=== PATIENT | male | born 1955 | race Caucasian/White ===

== ENCOUNTER 2017-07-23 16:58 | Inpatient (IN) | payer OTHER ==
[2017-07-26] MEDS ORDERED: MELATONIN 3 MG TAB PO PRN (15:35)
[2017-07-26] MEDS ORDERED: BISACODYL 10 MG SUPP PR PRN (15:42)
[2017-07-26] MEDS ORDERED: SENNOSIDES 1 TAB PO PRN (15:42)
--- NOTE | 2017-07-26 16:04 | GHP ---
[f rep st] HISTORY AND PHYSICAL POST ADMISSION PHYSICIAN EVALUATION AND REHABILITATION TREATMENT PLAN DATE OF ADMISSION: 07/26/2017 DATE OF EVALUATION: 07/26/2017 TIME OF EVALUATION: 1530 hours. REFERRING FACILITY: [facility]. REFERRING PHYSICIAN: Dr. Chester IMPAIRMENT GROUP: 1.2. 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 ETIOLOGIC DIAGNOSIS: Right body involvement (left brain). HISTORY OF PRESENT ILLNESS: This patient came to [facility] on 07/19/2017 with acute onset of right-sided weakness and trouble speaking. In the hospital, head CT showed hemorrhage in the left basal ganglia. He had a very high blood pressure with a systolic above 200. Blood pressure was controlled initially with IV nicardipine and esmolol. Further imaging with a CT angiogram of the head and neck showed minimal atherosclerotic disease in the bilateral carotid bifurcations. There were no occlusions or stenoses of the intracranial arterial vasculature or vascular malformations or aneurysms. The etiology of the stroke was presumably hypertensive. Blood pressure control was achieved with oral medications once he had passed his swallow evaluation. He was participating in physical and occupational therapies and was appropriate for inpatient rehabilitation. OTHER STUDIES AND LABS IN THE HOSPITAL: There was a CBC done on 07/26/2017, the day of hospital discharge. He had slight anemia with a hemoglobin of 13.3 and hematocrit of 39.2, and otherwise CBC was within normal limits. A basic metabolic profile done the same day showed a slightly high BUN at 21. Creatinine was normal at 9, and otherwise renal function and electrolytes were within normal limits, but for a calcium which was slightly low at 8.4. Urinalysis was done on 07/25 and was completely within normal limits. MRI of the brain done on 07/20/2017 showed stable left thalamic and basal ganglia intraparenchymal hemorrhage with surrounding vasogenic edema. There was age-related volume loss and chronic small vessel ischemic disease, and there was an old right pontine lacunar infarct. Chest x-ray on 07/19/2017 was normal. PRECAUTIONS: He is a fall risk. He has aspiration precautions. ACTIVE COMORBIDITIES: He has the tier 3 comorbidity of hemiparesis. He otherwise has no tier 1, tier 2 or tier 3 comorbidities. PAST MEDICAL HISTORY: 1. Hypertension. 2. Dyslipidemia. PAST SURGICAL HISTORY: He has not had any surgeries. PREHOSPITAL MEDICATIONS: He was taking a statin medication. I am unclear as to whether he was taking a blood pressure medicine. Omeprazole 20 mg p.o. daily. ADMISSION MEDICATIONS: 1. Atorvastatin 20 mg p.o. q.h.s. 2. Labetalol 100 mg p.o. b.i.d. 3. Lisinopril 40 mg p.o. daily. 4. Lorazepam 0.5 mg p.o. q.8 hours p.r.n. 5. Melatonin 3 mg p.o. q.h.s. p.r.n. 6. Omeprazole 20 mg p.o. daily. ALLERGIES: There are no known drug allergies. FAMILY HISTORY: Noncontributory. SOCIAL HISTORY: He is . He lives with his . They live in a 3-level home. He reports it is possible he will be able to live on 1 level. 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 His daughter and son-in-law also live in the home. He has a remote history of smoking, but he quit in 1975. REVIEW OF SYSTEMS: He reports that he snores. He has been sleeping in a recliner and finds that he has been much more comfortable since he was moved out of the ICU in a recliner than in bed. He has almost complete loss of sensation in the right arm and leg, and he is unable to move his right arm or leg. He reports that when he is stimulated on the right arm or leg, he feels it in the right shoulder as well as wherever he is being touched. He has a good appetite. There is no nausea, vomiting, constipation or diarrhea. There is no dysuria or urinary frequency. There is no skin rash or skin breakdown. There is no joint pain or joint swelling. He is in good spirits. There is no cough or dyspnea. He is not aware of difficulty swallowing. There are no fevers or chills. Other than that, a 10-point review of systems is negative. PHYSICAL EXAM: VITAL SIGNS: Blood pressure is 140/88, heart rate is 71, respiratory rate is 16, oxygen saturation is 94% on room air, temperature is 36.7 degrees centigrade. His weight is 93 kg for a body mass index of 33.1. GENERAL: This is a well-nourished, well-developed, obese man, appears his chronologic age, cooperative and in no acute distress. HEENT: Extraocular movements are intact. Pupils are equal, round and reactive to light. Mucous membranes are moist. Dentition is in good condition. He has a crowded airway, Mallampati class 4. NECK: Supple. HEART: There is a regular rate and rhythm with no murmurs, rubs or gallops. LUNGS: Clear to auscultation bilaterally. ABDOMEN: Soft, nontender, nondistended, with normoactive bowel sounds and no hepatosplenomegaly. EXTREMITIES: There is no cyanosis or clubbing. There is 1+ edema to the right lower leg pretibial and the right foot. Radial and dorsalis pedis pulses are 2+ bilaterally. There is no calf tenderness. NEUROLOGIC: He is alert and oriented x3. Cranial nerves 2 through 12 are grossly intact. He has a very slight right facial droop at the corner of the mouth. Motor strength is absent at the right biceps, triceps, wrist extensors and flexors, and finger extensors and flexors, as well as the right hip flexor, quadriceps, hamstrings, ankle extension, ankle flexion and great toe extension or flexion. He has some movement at the right scapula. Sensation is intact to light touch on the right , and he has very little sensation, though with firm touch he can feel on the left upper and lower extremities. With contact with the right lower extremity, he reports he gets tingling. Deep tendon reflexes are 2+ bilaterally at the biceps, patellar and Achilles tendons. Plantar reflex is indeterminate on the left and on the right, his toe is chronically in extension. There do not appear to be any visual field losses. Movements are smooth of and controlled with the left upper and lower extremities. He requires assistance to arise to seated from supine. CURRENT LEVEL OF FUNCTION: Per the pre-admission screen regarding diet, feeding and swallowing, he was on a regular diet with thick liquids, but that has subsequently been upgraded. There were aspiration precautions, and he had modified independence for diet, feeding and swallowing. For grooming, he had modified independence, seated. For bathing, he needed assistance. For dressing the upper body, he needed minimal assist with verbal and tactile cues. Bed mobility required minimal assistance to 2-person assistance. Transfers required minimal assistance to 2-person assistance. Nurses were using a Herminia lift. The therapists were using a Stedy-Lift with standing for grooming in the bathroom. Balance was poor. Endurance was poor. He could stand for 1-3 minutes with 2- person assist. Regarding communication, he was noted to have slurred speech. Regarding cognition, he was noted to have mild cognitive deficits, but he could follow 1-step commands. IMPRESSION: The patient is a 61-year-old man who suffered a hemorrhagic cerebrovascular accident affecting the left basal ganglia, thalamus and juárez radiata. He has right-sided hemiparesis. MR imaging also showed an old right pontine lacunar infarct. Hypertension was the etiology of the stroke. Blood pressure control was achieved in the hospital initially with IV medications and , once he was cleared for safe swallow, with oral medications. Lisinopril was titrated during his stay from 10 mg a day to 40 mg a day. He was participating in therapies and is appropriate for inpatient rehabilitation. He will benefit from physical and occupational therapy to optimize his mobility and activities of daily living, from speech and language pathology regarding swallow and cognition, from the nursing service regarding fall risk, skin integrity, bowel and bladder, medication administration, and medication education; and from the care of a physician regarding blood pressure control, deep venous thrombosis risk, and risk for neurologic deterioration. His goal is to complete therapy and then return home with his family. For a safe discharge, he will need to achieve modified independence with mobility, activities of daily living, swallowing, speech and cognition. He will need to have his blood pressure effectively managed. Will need to have medication education. There will need to be stroke education for the patient and his family and family training, and he and his family will need to be able to achieve medication management. He will have therapy with physical therapy, occupational therapy and speech and language pathology on a modified schedule for 45-60 minutes per day for each discipline on 5-7 days of the week. His expected duration of stay is 14-17 days. It is anticipated that upon return to home, he will continue to benefit from home health services including speech and language pathology and physical therapy. Additionally, he will be referred to a stroke support group. ASSESSMENT AND PLAN: 1. Debility. Status post hemorrhagic cerebral cerebrovascular accident on 07/19 with left-sided hemiparesis and reduced sensation. PT and OT to optimize his mobility and activities of daily living. 2. Dysphagia and cognitive impairment. These both appear to have improved during his hospitalization. He will have assessment and treatment per Speech and Language Pathology. 3. Hypertension. He was mildly hypertensive on presentation to inpatient rehabilitation today. Continue labetalol 100 mg b.i.d. and lisinopril 40 mg daily, and monitor blood pressure. As there is not a separate indication for a beta rhonda, will consider transitioning off labetalol and initiating more first-line drugs, such as a calcium channel rhonda and/or a diuretic. 4. Risk for deep venous thrombosis was discussed with neurosurgeon, Dr. Haynes , who agrees with prophylactic enoxaparin. 5. Possible sleep apnea with history of snoring and crowded airway on exam. He will be assessed for need for oxygen overnight, and he should have a sleep study done after he discharges, to evaluate whether he has sleep apnea and would benefit from interventions. 6. History of gastroesophageal reflux disorder. Continue proton pump inhibitor. Per hospital formulary, I will prescribe pantoprazole. 7. Obesity. Will consult dietitian for diet recommendations. 8. Prior cerebrovascular accident seen on magnetic resonance imaging in the right ezio. He will have physical and occupational therapy, and it is hoped that the prior infarction will not impact his rehabilitation. 9. Secondary stroke prophylaxis will be continued with atorvastatin as well as blood pressure control. 10. Dysphagia. There are specific recommendations in the discharge documentation. Texture is regular, but no mixed consistencies. Liquid texture is thin. He should have small bites and sips. He should be positioned upright at 90 degrees 15-20 minutes after meals. No straws. Pills in puree. One-to-one supervision and cuing. 11. Right lower extremity edema, presumably from dependent positioning and inactivity. His calf was not tender, and he has no other signs consistent with a deep venous thrombosis. Will observe and will not do any further studies at present. Will begin enoxaparin today. FOLLOWUP: He is to follow up with primary care provider, Dr. Gema Greene, after discharge. /[id number]/MODL and [id number] 07/26/17 16:14 KYLER
[2017-07-26] MEDS ORDERED: ENOXAPARIN 40 MG/0.4 ML SYR SC SCH (16:30)
[2017-07-26] MEDS: ENOXAPARIN 40 MG/0.4 ML SYR SC SCH (18:42)
[2017-07-26] MEDS: LABETALOL HCL 100 MG TAB PO SCH (21:31)
[2017-07-26] MEDS: ATORVASTATIN CALCIUM 20 MG TAB PO SCH (21:31)
[2017-07-26] MEDS: LORazepam 0.5 MG TAB PO PRN (21:56)
[2017-07-27] MEDS: PANTOPRAZOLE SODIUM 40 MG TAB PO SCH (08:07)
[2017-07-27] MEDS: LABETALOL HCL 100 MG TAB PO SCH ×2 (08:07→20:04)
[2017-07-27] MEDS: ENOXAPARIN 40 MG/0.4 ML SYR SC SCH (08:08)
[2017-07-27] MEDS: LISINOPRIL 40 MG TAB PO SCH (08:08)
[2017-07-27] MEDS ORDERED: ENOXAPARIN 40 MG/0.4 ML SYR SC SCH (09:00)
[2017-07-27] MEDS ORDERED: NON-FORMULARY NEW DRUG (Omeprazole [Prilosec 20 Mg] 20 MG) PO SCH (09:00)
--- NOTE | 2017-07-27 12:43 | SOAPPROG ---
SOAP Progress Note Assessment/Plan: Assessment: 1. Debility. Status post hemorrhagic cerebral cerebrovascular accident on 07/19 with left-sided hemiparesis and reduced sensation. PT and OT to optimize his mobility and activities of daily living. 2. Dysphagia and cognitive impairment. These both appear to have improved during his hospitalization. He will have assessment and treatment per Speech and Language Pathology. 3. Hypertension. He was mildly hypertensive on presentation to inpatient rehabilitation today. Continue labetalol 100 mg b.i.d. and lisinopril 40 mg daily, and monitor blood pressure. As there is not a separate indication for a beta rhonda, will consider transitioning off labetalol and initiating more first-line drugs, such as a calcium channel rhonda and/or a diuretic. 4. Risk for deep venous thrombosis was discussed with neurosurgeon, Dr. Haynes , who agrees with prophylactic enoxaparin. 5. Possible sleep apnea with history of snoring and crowded airway on exam. He will be assessed for need for oxygen overnight, and he should have a sleep study done after he discharges, to evaluate whether he has sleep apnea and would benefit from interventions. 6. History of gastroesophageal reflux disorder. Continue proton pump inhibitor. Per hospital formulary, I will prescribe pantoprazole. 7. Obesity. Will consult dietitian for diet recommendations. 8. Prior cerebrovascular accident seen on magnetic resonance imaging in the right ezio. He will have physical and occupational therapy, and it is hoped that the prior infarction will not impact his rehabilitation. 9. Secondary stroke prophylaxis will be continued with atorvastatin as well as blood pressure control. 10. Dysphagia. There are specific recommendations in the discharge documentation. Texture is regular, but no mixed consistencies. Liquid texture is thin. He should have small bites and sips. He should be positioned upright at 90 degrees 15-20 minutes after meals. No straws. Pills in puree. One-to-one supervision and cuing. 11. Right lower extremity edema, presumably from dependent positioning and inactivity. His calf was not tender, and he has no other signs consistent with a deep venous thrombosis. Will observe and will not do any further studies at present. Will begin enoxaparin today. FOLLOWUP: He is to follow up with primary care provider, Dr. Gema Greene, after discharge. 07/27/17 12:43 Objective: Vital Signs Temp Pulse Resp BP Pulse Ox 36.4 C 70 17 148/93 H 94 07/27/17 07:34 07/27/17 08:07 07/27/17 07:34 07/27/17 08:08 07/27/17 07:34 07/26/17 07/27/17 07/28/17 05:59 05:59 05:59 Intake Total 560 568 Output Total 600 8624 [id number] -[id number]
--- NOTE | 2017-07-27 12:44 | PDOREHIP ---
Admission IRF-PSYCHIATRIC - Admission - 3 Day Assessment Period Admission Date/Day 1: 07/26/17 Day 2: 07/27/17 Day 3: 07/28/17 - Active Diagnoses Comorbidities and Co-existing Conditions at Admission: 51585. None of the Above - Skin Conditions Unhealed Pressure Ulcer (1 or more/Stage 1 or >)-Admission: 0. No
--- NOTE | 2017-07-27 14:13 | SOAPPROG ---
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 PT and OT to optimize his mobility and activities of daily living. * Dysphagia and cognitive impairment. Improved during his hospitalization. He will have assessment and treatment per Speech and Language Pathology. * Hypertension. He was mildly hypertensive on presentation to inpatient rehabilitation today. Continue lisinopril 40 mg daily, and monitor blood pressure. As there is not a separate indication for a beta rhonda, will transition off labetalol and initiate hydrochlorothiazide starting 07/28/2016. Recheck BMP 07/30/17. * Secondary stroke prophylaxis will be continued with atorvastatin as well as blood pressure control. * Right eye irritation. He may not keep the eyelid closed on night. Will initiate ophthalmic ointment at bedtime and moisturizing eyedrops p.r.n.. * History of gastroesophageal reflux disorder. Continue proton pump inhibitor. Per hospital formulary, I will prescribe pantoprazole. * Obesity. Will consult dietitian for diet recommendations. * Constipation. He reports he will try prune juice as suggested by nursing. Will also prescribe polyethylene glycol q.day on a p.r.n. basis. * Prior cerebrovascular accident seen on magnetic resonance imaging in the right ezio. He will have physical and occupational therapy, and it is hoped that the prior infarction will not impact his rehabilitation. * Possible sleep apnea with history of snoring and crowded airway on exam. He will be assessed for need for oxygen overnight, and he should have a sleep study done after he discharges, to evaluate whether he has sleep apnea and would benefit from interventions. * Risk for deep venous thrombosis was discussed with neurosurgeon, Dr. Haynes, who agrees with prophylactic enoxaparin, started 07/26/17. Right lower extremity edema is resolved 07/27/2017 FOLLOWUP: He is to follow up with primary care provider, Dr. Gema Greene, after discharge. 07/27/17 14:32 Subjective: No complaints. Slept well; took some lorazepam last night. Slept in the recliner. He reports physical therapy told him that eventually he will need to be sleeping in the bed. He was not taking antihypertensive medicine prior to this event. Not in pain, no fevers, chills, cough, dyspnea. Reports constipation and would like a stool softener. Says his right eye is a little bit red and feels somewhat irritated. Objective: Vital Signs Temp Pulse Resp BP Pulse Ox 36.4 C 70 17 148/93 H 94 07/27/17 07:34 07/27/17 08:07 07/27/17 07:34 07/27/17 08:08 07/27/17 07:34 07/26/17 07/27/17 07/28/17 05:59 05:59 05:59 Intake Total 560 568 Output Total 600 1080 Balance -40 -512 Physical Exam - Physical Exam General Appearance: WD/WN, alert, no apparent distress, obese Respiratory: normal breath sounds, No crackles, No rhonchi, No wheezing Cardiac/Chest: regular rate, rhythm, No edema Skin: normal color, warm/dry Neuro/Psych: alert, normal mood/affect, oriented x 3, motor weakness (Right upper and lower extremities. Slight right facial droop at the corner of the mouth. Can close both eyes completely but questionable lid lag on the right.) ICD10 Worksheet Patient Problems: Problems Problem Status Onset HTN (hypertension) Acute Hemorrhagic cerebrovascular accident (CVA) Acute Right hemiparesis Acute - ICD10 Problem Qualifiers (1) Hemorrhagic cerebrovascular accident (CVA) (2) Right hemiparesis (3) HTN (hypertension)
[2017-07-27] MEDS ORDERED: POLYETHYLENE GLYCOL 3350 17 GM PKT PO PRN (14:28)
[2017-07-27] MEDS ORDERED: CARBOXYMETHYLCELLULOSE 0.5% 0.4 ML DROPERETTE RTEYE PRN (14:33)
[2017-07-27] MEDS: PETROLAT,WHT/MIN OIL/SOD CHL 3.5 GM OPHT.OINT EACHEYE SCH (20:04)
[2017-07-27] MEDS: ATORVASTATIN CALCIUM 20 MG TAB PO SCH (20:04)
[2017-07-28] MEDS: HYDROCHLOROTHIAZIDE 25 MG TAB PO SCH (08:06)
[2017-07-28] MEDS: ENOXAPARIN 40 MG/0.4 ML SYR SC SCH (08:06)
[2017-07-28] MEDS: LISINOPRIL 40 MG TAB PO SCH (08:07)
[2017-07-28] MEDS: PANTOPRAZOLE SODIUM 40 MG TAB PO SCH (08:07)
--- NOTE | 2017-07-28 14:18 | SOAPPROG ---
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 Initial functional independence measure 60 on 07/28/2017. Moderate to maximal assistance for bed mobility, moderate assistance for transfers. Standing at the rail. Ambulated 5 feet. He has emerging movement at the right hip and quadriceps when standing. Required maximal assistance for shower transfer and moderate assistance for bathing. Minimal assist for upper body dressing and moderate to maximal assistance for lower body dressing PT and OT to optimize his mobility and activities of daily living. * Dysphagia. Right facial and oral weakness. Week labral seal and can leak food. He has been advanced to thin liquids but should continue with small sips. Continue speech and language pathology. * Cognitive impairment. Higher level cognitive activities with Speech and Language Pathology. * Hypertension. Transitioned from labetalol 100 mg twice daily to hydrochlorothiazide 12.5 mg q.day starting 07/28/2017. Continue lisinopril 40 mg p. o. q.day. Monitor blood pressure. Recheck BMP 07/30/17. * Secondary stroke prophylaxis will be continued with atorvastatin as well as blood pressure control. * Right eye irritation. He may not keep the eyelid closed on night. Initiated ophthalmic ointment at bedtime and moisturizing eyedrops p.r.n. on 07/27/2017. * History of gastroesophageal reflux disorder. Continue pantoprazole. * Obesity. Will consult dietitian for diet recommendations. * Constipation. He reports he will try prune juice as suggested by nursing. Will also prescribe polyethylene glycol q.day on a p.r.n. basis. * Prior cerebrovascular accident seen on magnetic resonance imaging in the right ezio. He will have physical and occupational therapy, and it is hoped that the prior infarction will not impact his rehabilitation. * Possible sleep apnea with history of snoring and crowded airway on exam. He will be assessed for need for oxygen overnight, and he should have a sleep study done after he discharges, to evaluate whether he has sleep apnea and would benefit from interventions. * Risk for deep venous thrombosis was discussed with neurosurgeon, Dr. Haynes, who agrees with prophylactic enoxaparin, started 07/26/17. Right lower extremity edema is resolved 07/27/2017 Attended staffing, 15 minutes. Discussed with case management, dietitian, nursing, PT, OT, [employer]. Tentative discharge date set for 08/18/2017. FOLLOWUP: He is to follow up with primary care provider, Dr. Gema Greene, after discharge. 07/28/17 14:13 Subjective: No complaints. Has some fatigue after therapies through the day. Has not noticed any adverse effects of change of blood pressure meds. Sleeping okay. Reports he will be willing to switch from sleeping in the recliner to bed in another day or 2. Objective: Vital Signs Temp Pulse Resp BP Pulse Ox 36.3 C 68 16 122/88 H 96 07/28/17 06:54 07/28/17 06:54 07/28/17 06:54 07/28/17 08:07 07/28/17 06:54 07/27/17 07/28/17 07/29/17 05:59 05:59 05:59 Intake Total 560 1208 386 Output Total 600 1680 Balance -40 -472 386 - Time Spent With Patient Time Spent With Patient: Greater than 35 minutes floor time today, including more than 50% of time in coordination of care during staffing meeting, and counseling patient. Physical Exam - Physical Exam General Appearance: WD/WN, alert, no apparent distress Respiratory: normal breath sounds, No crackles, No rhonchi, No wheezing Cardiac/Chest: regular rate, rhythm, edema (Trace pretibial edema right lower extremity) Skin: normal color, warm/dry Neuro/Psych: alert, normal mood/affect, oriented x 3, motor weakness (Right upper and lower extremities) ICD10 Worksheet Patient Problems: Problems Problem Status Onset HTN (hypertension) Acute Hemorrhagic cerebrovascular accident (CVA) Acute Right hemiparesis Acute - ICD10 Problem Qualifiers (1) Hemorrhagic cerebrovascular accident (CVA) (2) Right hemiparesis (3) HTN (hypertension)
[2017-07-28] MEDS: ATORVASTATIN CALCIUM 20 MG TAB PO SCH (20:15)
[2017-07-28] MEDS: PETROLAT,WHT/MIN OIL/SOD CHL 3.5 GM OPHT.OINT EACHEYE SCH (21:56)
[2017-07-29] MEDS: PETROLAT,WHT/MIN OIL/SOD CHL 3.5 GM OPHT.OINT EACHEYE SCH (00:30)
[2017-07-29] MEDS: LORazepam 0.5 MG TAB PO PRN (01:03)
[2017-07-29] MEDS: HYDROCHLOROTHIAZIDE 25 MG TAB PO SCH (08:08)
[2017-07-29] MEDS: LISINOPRIL 40 MG TAB PO SCH (08:08)
[2017-07-29] MEDS: PANTOPRAZOLE SODIUM 40 MG TAB PO SCH (08:09)
[2017-07-29] MEDS: ENOXAPARIN 40 MG/0.4 ML SYR SC SCH (09:27)
[2017-07-29] MEDS ORDERED: traZODone 50 MG TAB PO SCH (13:30)
--- NOTE | 2017-07-29 13:35 | SOAPPROG ---
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 Initial functional independence measure 60 on 07/28/2017. Moderate to maximal assistance for bed mobility, moderate assistance for transfers. Pre gait activities standing at the rail. Ambulated 5 feet. He has emerging movement at the right hip and quadriceps when standing. Required maximal assistance for shower transfer and moderate assistance for bathing. Minimal assist for upper body dressing and moderate to maximal assistance for lower body dressing PT and OT to optimize his mobility and activities of daily living. * Dysphagia. Right facial and oral weakness. Week labial seal and can leak food. He has been advanced to thin liquids but should continue with small sips. Continue speech and language pathology. * Cognitive impairment. Higher level cognitive activities with Speech and Language Pathology. * Hypertension. Transitioned from labetalol 100 mg twice daily to hydrochlorothiazide 12.5 mg q.day starting 07/28/2017. Continue lisinopril 40 mg p. o. q.day. Monitor blood pressure. Recheck BMP 07/30/17. * Secondary stroke prophylaxis will be continued with atorvastatin as well as blood pressure control. * Insomnia. Discontinue lorazepam as it may be contributing to daytime fatigue. Trial of trazodone 50 mg at HS starting 07/29/2017. * Right eye irritation. He may not keep the eyelid closed on night. Initiated ophthalmic ointment at bedtime and moisturizing eyedrops p.r.n. on 07/27/2017. * History of gastroesophageal reflux disorder. Continue pantoprazole. * Obesity. Will consult dietitian for diet recommendations. * Constipation. He reports he will try prune juice as suggested by nursing. Will also prescribe polyethylene glycol q.day on a p.r.n. basis. * Prior cerebrovascular accident seen on magnetic resonance imaging in the right ezio. He will have physical and occupational therapy, and it is hoped that the prior infarction will not impact his rehabilitation. * Possible sleep apnea with history of snoring and crowded airway on exam. He will be assessed for need for oxygen overnight, and he should have a sleep study done after he discharges, to evaluate whether he has sleep apnea and would benefit from interventions. * Risk for deep venous thrombosis was discussed with neurosurgeon, Dr. Haynes, who agrees with prophylactic enoxaparin, started 07/26/17. Right lower extremity edema is resolved 07/27/2017 Tentative discharge date set for 08/18/2017. FOLLOWUP: He is to follow up with primary care provider, Dr. Gema Greene, after discharge. 07/29/17 13:35 Subjective: Complains of fatigue after therapies. Reports study sleepy as well as having muscle fatigue. Took lorazepam last night for sleep but did not sleep very well ; think she will try sleeping in the bed tonight instead of the recliner. No cough, dyspnea, fevers, chills. Objective: Vital Signs Temp Pulse Resp BP Pulse Ox 36.8 C 70 16 137/90 H 94 07/29/17 07:25 07/29/17 07:25 07/29/17 07:25 07/29/17 08:08 07/29/17 07:25 07/28/17 07/29/17 07/30/17 05:59 05:59 05:59 Intake Total 1208 1126 300 Output Total 1680 500 Balance -472 626 300 Physical Exam - Physical Exam General Appearance: WD/WN, alert, no apparent distress Respiratory: normal breath sounds, No crackles, No rhonchi, No wheezing Cardiac/Chest: regular rate, rhythm, diastolic murmur, systolic murmur Skin: normal color, warm/dry Neuro/Psych: alert, normal mood/affect, oriented x 3, motor weakness (Right upper and lower extremities) ICD10 Worksheet Patient Problems: Problems Problem Status Onset HTN (hypertension) Acute Hemorrhagic cerebrovascular accident (CVA) Acute Right hemiparesis Acute - ICD10 Problem Qualifiers (1) Hemorrhagic cerebrovascular accident (CVA) (2) Right hemiparesis (3) HTN (hypertension)
[2017-07-29] MEDS: traZODone 50 MG TAB PO SCH (20:09)
[2017-07-29] MEDS: ATORVASTATIN CALCIUM 20 MG TAB PO SCH (20:09)
[2017-07-30 08:07] LABS: ANION GAP 11 mEq/L (8-16); CALCIUM 9.1 mg/dL (8.5-10.4); CARBON DIOXIDE 21 mEq/l (22-31); CHLORIDE 104 mEq/L (97-110); GLOMERULAR FILTRATION RATE > 60; GLUCOSE 102 mg/dL (70-100); POTASSIUM 5.6 mEq/L (3.5-5.2); SODIUM 136 mEq/L (134-144)
[2017-07-30 08:11] LABS: SPECIMEN HEMOLYSIS 202
[2017-07-30] MEDS: LISINOPRIL 40 MG TAB PO SCH (08:55)
[2017-07-30] MEDS: HYDROCHLOROTHIAZIDE 25 MG TAB PO SCH (08:56)
[2017-07-30] MEDS: PANTOPRAZOLE SODIUM 40 MG TAB PO SCH (08:56)
[2017-07-30] MEDS: ENOXAPARIN 40 MG/0.4 ML SYR SC SCH (08:56)
--- NOTE | 2017-07-30 12:08 | SOAPPROG ---
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 Initial functional independence measure 60 on 07/28/2017. Moderate to maximal assistance for bed mobility, moderate assistance for transfers. Pre gait activities standing at the rail. Ambulated 5 feet. He has emerging movement at the right hip and quadriceps when standing. Required maximal assistance for shower transfer and moderate assistance for bathing. Minimal assist for upper body dressing and moderate to maximal assistance for lower body dressing PT and OT to optimize his mobility and activities of daily living. * Dysphagia. Right facial and oral weakness. Week labial seal and can leak food. He has been advanced to thin liquids but should continue with small sips. Continue speech and language pathology. * Cognitive impairment. Higher level cognitive activities with Speech and Language Pathology. * Hypertension. Adequate control. Transitioned from labetalol 100 mg twice daily to hydrochlorothiazide 12.5 mg q.day starting 07/28/2017. Continue lisinopril 40 mg p. o. q.day. Monitor blood pressure. BMP 07/30/17 with normal renal function; hyperkalemia due to hemolysis.. * Secondary stroke prophylaxis will be continued with atorvastatin as well as blood pressure control. * Insomnia. Discontinue lorazepam as it may be contributing to daytime fatigue. Improved with trazodone 50 mg at HS starting 07/29/2017. * Right eye irritation. He may not keep the eyelid closed on night. Initiated ophthalmic ointment at bedtime and moisturizing eyedrops p.r.n. on 07/27/2017. * History of gastroesophageal reflux disorder. Continue pantoprazole. * Obesity. Will consult dietitian for diet recommendations. * Constipation. He reports he will try prune juice as suggested by nursing. Will also prescribe polyethylene glycol q.day on a p.r.n. basis. * Prior cerebrovascular accident seen on magnetic resonance imaging in the right ezio. He will have physical and occupational therapy, and it is hoped that the prior infarction will not impact his rehabilitation. * Possible sleep apnea with history of snoring and crowded airway on exam. He will be assessed for need for oxygen overnight, and he should have a sleep study done after he discharges, to evaluate whether he has sleep apnea and would benefit from interventions. * Risk for deep venous thrombosis was discussed with neurosurgeon, Dr. Haynes, who agrees with prophylactic enoxaparin, started 07/26/17. Right lower extremity edema is resolved 07/27/2017 Tentative discharge date set for 08/18/2017. FOLLOWUP: He is to follow up with primary care provider, Dr. Gema Greene, after discharge. 07/30/17 12:03 Subjective: No complaints. Slept well with trazodone. Slept in bed last night rather than recliner. Not in pain, no fevers, chills, cough, dyspnea. Objective: Vital Signs Temp Pulse Resp BP Pulse Ox 36.5 C 77 16 127/69 H 94 07/30/17 07:28 07/30/17 07:28 07/30/17 07:28 07/30/17 08:56 07/30/17 07:28 Laboratory Results 07/30/17 07:20 07/29/17 07/30/17 07/31/17 05:59 05:59 05:59 Intake Total 1126 1180 236 Output Total 500 200 Balance 626 980 236 Physical Exam - Physical Exam General Appearance: WD/WN, alert, no apparent distress Respiratory: normal breath sounds, No crackles, No rhonchi, No wheezing Cardiac/Chest: regular rate, rhythm, No diastolic murmur, No systolic murmur Skin: normal color, warm/dry Neuro/Psych: alert, normal mood/affect, oriented x 3, motor weakness (RUE but occupational therapists notes some return of shoulder flexion, and RLE) ICD10 Worksheet Patient Problems: Problems Problem Status Onset HTN (hypertension) Acute Hemorrhagic cerebrovascular accident (CVA) Acute Right hemiparesis Acute - ICD10 Problem Qualifiers (1) Hemorrhagic cerebrovascular accident (CVA) (2) Right hemiparesis (3) HTN (hypertension)
[2017-07-30] MEDS: ATORVASTATIN CALCIUM 20 MG TAB PO SCH (20:03)
[2017-07-30] MEDS: traZODone 50 MG TAB PO SCH (20:03)
[2017-07-31] MEDS: PETROLAT,WHT/MIN OIL/SOD CHL 3.5 GM OPHT.OINT EACHEYE SCH ×2 (04:44→19:54)
[2017-07-31] MEDS: LISINOPRIL 40 MG TAB PO SCH (08:19)
[2017-07-31] MEDS: PANTOPRAZOLE SODIUM 40 MG TAB PO SCH (08:19)
[2017-07-31] MEDS: HYDROCHLOROTHIAZIDE 25 MG TAB PO SCH (08:19)
[2017-07-31] MEDS: ENOXAPARIN 40 MG/0.4 ML SYR SC SCH (08:20)
--- NOTE | 2017-07-31 08:51 | SOAPPROG ---
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 Initial functional independence measure 60 on 07/28/2017. Moderate to maximal assistance for bed mobility, moderate assistance for transfers. Pre gait activities standing at the rail. Ambulated 5 feet. He has emerging movement at the right hip and quadriceps when standing. Required maximal assistance for shower transfer and moderate assistance for bathing. Minimal assist for upper body dressing and moderate to maximal assistance for lower body dressing PT and OT to optimize his mobility and activities of daily living. * Dysphagia. Right facial and oral weakness. Week labial seal and can leak food. He has been advanced to thin liquids but should continue with small sips. Continue speech and language pathology. * Cognitive impairment. Higher level cognitive activities with Speech and Language Pathology. * Hypertension. Adequate control. Transitioned from labetalol 100 mg twice daily to hydrochlorothiazide 12.5 mg q.day starting 07/28/2017. Continue lisinopril 40 mg p. o. q.day. Monitor blood pressure. BMP 07/30/17 with normal renal function; hyperkalemia due to hemolysis.. * Secondary stroke prophylaxis will be continued with atorvastatin as well as blood pressure control. * Insomnia. Discontinue lorazepam as it may be contributing to daytime fatigue. Improved with trazodone 50 mg at HS starting 07/29/2017. * Right eye irritation. He may not keep the eyelid closed on night. Initiated ophthalmic ointment at bedtime and moisturizing eyedrops p.r.n. on 07/27/2017. * History of gastroesophageal reflux disorder. Continue pantoprazole. * Obesity. Will consult dietitian for diet recommendations. * Constipation. He reports he will try prune juice as suggested by nursing. Will also prescribe polyethylene glycol q.day on a p.r.n. basis. * Prior cerebrovascular accident seen on magnetic resonance imaging in the right ezio. He will have physical and occupational therapy, and it is hoped that the prior infarction will not impact his rehabilitation. * Possible sleep apnea with history of snoring and crowded airway on exam. He will be assessed for need for oxygen overnight, and he should have a sleep study done after he discharges, to evaluate whether he has sleep apnea and would benefit from interventions. * Risk for deep venous thrombosis was discussed with neurosurgeon, Dr. Haynes, who agrees with prophylactic enoxaparin, started 07/26/17. Right lower extremity edema is resolved 07/27/2017 * Right shoulder pain - likely 2/2 hemiparesis - Pt not describing neuropathic qualities. Will add topicals although will continue to assess for neuropathic pain Tentative discharge date set for 08/18/2017. FOLLOWUP: He is to follow up with primary care provider, Dr. Gema Greene, after discharge. Plan: 07/31/17 08:48 Subjective: Doing well today. Slept pretty well last night although did struggle getting to sleep 2/2 right shoulder pain/discomfort. Describes it more as musculoskeletal. no cp, sob. Tolerating PO well. Objective: Vital Signs Temp Pulse Resp BP Pulse Ox 36.7 C 77 18 119/68 91 L 07/31/17 08:00 07/31/17 08:00 07/31/17 08:00 07/31/17 08:19 07/31/17 08:00 Laboratory Results 07/30/17 07:20 07/30/17 07/31/17 08/01/17 05:59 05:59 05:59 Intake Total 1180 672 Output Total 200 Balance 980 672 Physical Exam - Physical Exam General Appearance: alert, no apparent distress, other (Brushing teeth - working on ADL's with OT) Respiratory: lungs clear, normal breath sounds Cardiac/Chest: regular rate, rhythm Abdomen: normal bowel sounds Extremities: non-tender Neuro/Psych: alert, normal mood/affect, motor weakness (Right sided weakenss) ICD10 Worksheet Patient Problems: Problems Problem Status Onset HTN (hypertension) Acute Hemorrhagic cerebrovascular accident (CVA) Acute Right hemiparesis Acute Shoulder pain, right Acute - ICD10 Problem Qualifiers (1) Shoulder pain, right Qualifiers: Chronicity: acute Qualified Code(s): M25.511 - Pain in right shoulder
[2017-07-31] MEDS: TROLAMINE SALICYLATE 85 GM CRTUBE TP PRN ×2 (18:13→19:54)
[2017-07-31] MEDS: ATORVASTATIN CALCIUM 20 MG TAB PO SCH (19:54)
[2017-08-01] MEDS: traZODone 50 MG TAB PO SCH ×2 (00:17→19:55)
--- NOTE | 2017-08-01 08:09 | SOAPPROG ---
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 Initial functional independence measure 60 on 07/28/2017. Moderate to maximal assistance for bed mobility, moderate assistance for transfers. Pre gait activities standing at the rail. Ambulated 5 feet. He has emerging movement at the right hip and quadriceps when standing. Required maximal assistance for shower transfer and moderate assistance for bathing. Minimal assist for upper body dressing and moderate to maximal assistance for lower body dressing PT and OT to optimize his mobility and activities of daily living. * Dysphagia. Right facial and oral weakness. Week labial seal and can leak food. He has been advanced to thin liquids but should continue with small sips. Continue speech and language pathology. * Cognitive impairment. Higher level cognitive activities with Speech and Language Pathology. * Hypertension. Adequate control. Transitioned from labetalol 100 mg twice daily to hydrochlorothiazide 12.5 mg q.day starting 07/28/2017. Continue lisinopril 40 mg p. o. q.day. Monitor blood pressure. BMP 07/30/17 with normal renal function; hyperkalemia due to hemolysis.. * Secondary stroke prophylaxis will be continued with atorvastatin as well as blood pressure control. * Insomnia. Discontinue lorazepam as it may be contributing to daytime fatigue. Improved with trazodone 50 mg at HS starting 07/29/2017. * Right eye irritation. He may not keep the eyelid closed on night. Initiated ophthalmic ointment at bedtime and moisturizing eyedrops p.r.n. on 07/27/2017. * History of gastroesophageal reflux disorder. Continue pantoprazole. * Obesity. Will consult dietitian for diet recommendations. * Constipation. He reports he will try prune juice as suggested by nursing. Will also prescribe polyethylene glycol q.day on a p.r.n. basis. * Prior cerebrovascular accident seen on magnetic resonance imaging in the right ezio. He will have physical and occupational therapy, and it is hoped that the prior infarction will not impact his rehabilitation. * Possible sleep apnea with history of snoring and crowded airway on exam. He will be assessed for need for oxygen overnight, and he should have a sleep study done after he discharges, to evaluate whether he has sleep apnea and would benefit from interventions. * Risk for deep venous thrombosis was discussed with neurosurgeon, Dr. Haynes, who agrees with prophylactic enoxaparin, started 07/26/17. Right lower extremity edema is resolved 07/27/2017 * Right shoulder pain - likely 2/2 hemiparesis - Improved with aspercreme. Have asked OT to tape and RN to place Jameel-arm protocol reminder over bed Tentative discharge date set for 08/18/2017. FOLLOWUP: He is to follow up with primary care provider, Dr. Gema Greene, after discharge. Plan: 07/31/17 08:48 08/01/17 08:05 Subjective: Did better yesterday/last night with the cream. Slept more through the night and minimal discomfort. no new concerns this am. No cp/sob, Had a BM. Objective: Vital Signs Temp Pulse Resp BP Pulse Ox 36.9 C 67 16 114/73 93 08/01/17 05:58 08/01/17 05:58 08/01/17 05:58 08/01/17 05:58 08/01/17 05:58 Laboratory Results 07/30/17 07:20 07/31/17 08/01/17 08/02/17 05:59 05:59 05:59 Intake Total 672 980 Balance 672 980 Physical Exam - Physical Exam General Appearance: alert, no apparent distress EENT: PERRL/EOMI Respiratory: lungs clear, normal breath sounds Cardiac/Chest: regular rate, rhythm Abdomen: normal bowel sounds, non-tender, soft Extremities: non-tender Neuro/Psych: normal mood/affect ICD10 Worksheet Patient Problems: Problems Problem Status Onset HTN (hypertension) Acute Hemorrhagic cerebrovascular accident (CVA) Acute Right hemiparesis Acute Shoulder pain, right Acute - ICD10 Problem Qualifiers (1) Shoulder pain, right Qualifiers: Chronicity: acute Qualified Code(s): M25.511 - Pain in right shoulder
[2017-08-01] MEDS: LISINOPRIL 40 MG TAB PO SCH (08:46)
[2017-08-01] MEDS: HYDROCHLOROTHIAZIDE 25 MG TAB PO SCH (08:47)
[2017-08-01] MEDS: PANTOPRAZOLE SODIUM 40 MG TAB PO SCH (08:47)
[2017-08-01] MEDS: ENOXAPARIN 40 MG/0.4 ML SYR SC SCH (08:48)
[2017-08-01] MEDS: TROLAMINE SALICYLATE 85 GM CRTUBE TP PRN (19:24)
[2017-08-01] MEDS: ATORVASTATIN CALCIUM 20 MG TAB PO SCH (19:55)
[2017-08-01] MEDS: PETROLAT,WHT/MIN OIL/SOD CHL 3.5 GM OPHT.OINT EACHEYE SCH (20:05)
[2017-08-02] MEDS: HYDROCHLOROTHIAZIDE 25 MG TAB PO SCH (09:10)
[2017-08-02] MEDS: LISINOPRIL 40 MG TAB PO SCH (09:11)
[2017-08-02] MEDS: ENOXAPARIN 40 MG/0.4 ML SYR SC SCH (09:12)
[2017-08-02] MEDS: PANTOPRAZOLE SODIUM 40 MG TAB PO SCH (09:12)
--- NOTE | 2017-08-02 09:38 | SOAPPROG ---
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 Initial functional independence measure 60 on 07/28/2017. Moderate to maximal assistance for bed mobility, moderate assistance for transfers. Pre gait activities standing at the rail. Ambulated 5 feet. He has emerging movement at the right hip and quadriceps when standing. Required maximal assistance for shower transfer and moderate assistance for bathing. Minimal assist for upper body dressing and moderate to maximal assistance for lower body dressing PT and OT to optimize his mobility and activities of daily living. * Dysphagia. Right facial and oral weakness. Week labial seal and can leak food. He has been advanced to thin liquids but should continue with small sips. Continue speech and language pathology. * Cognitive impairment. Higher level cognitive activities with Speech and Language Pathology. * Hypertension. Over-corrected, though asymptomatic. Decrease lisinopril form 40 mg QD to 30 mg QD starting 08/03/17. Has been transitioned from labetalol 100 mg twice daily to hydrochlorothiazide 12.5 mg q.day starting 07/28/2017. BMP 07/30/17 with normal renal function; hyperkalemia due to hemolysis.. * Right shoulder pain, improved with topical NSAID. * Secondary stroke prophylaxis will be continued with atorvastatin as well as blood pressure control. * Insomnia. Discontinue lorazepam as it may be contributing to daytime fatigue. Improved with trazodone 50 mg at HS starting 07/29/2017. * Right eye irritation. He may not keep the eyelid closed on night. Initiated ophthalmic ointment at bedtime and moisturizing eyedrops p.r.n. on 07/27/2017. * History of gastroesophageal reflux disorder. Continue pantoprazole. * Obesity. Will consult dietitian for diet recommendations. * Constipation. He reports he will try prune juice as suggested by nursing. Continue polyethylene glycol q.day on a p.r.n. basis. * Prior cerebrovascular accident seen on magnetic resonance imaging in the right ezio. He will have physical and occupational therapy, and it is hoped that the prior infarction will not impact his rehabilitation. * Possible sleep apnea with history of snoring and crowded airway on exam. He will be assessed for need for oxygen overnight, and he should have a sleep study done after he discharges, to evaluate whether he has sleep apnea and would benefit from interventions. * Risk for deep venous thrombosis was discussed with neurosurgeon, Dr. Haynes, who agrees with prophylactic enoxaparin, started 07/26/17. Right lower extremity edema is resolved 07/27/2017 Tentative discharge date set for 08/18/2017. FOLLOWUP: He is to follow up with primary care provider, Dr. Gema Greene, after discharge. 08/02/17 09:38 Subjective: Slept well last night and the night before. Complains of a cough and feels like he has phlegm running down the back of his throat. Otherwise denies symptoms of upper respiratory infection. Reports he had bronchitis for a month which was resolving when he had a stroke. No dyspnea. Cough is nonproductive. No fevers or chills. Objective: Vital Signs Temp Pulse Resp BP Pulse Ox 36.8 C 67 16 108/68 93 08/02/17 07:23 08/02/17 07:23 08/02/17 07:23 08/02/17 09:11 08/02/17 07:23 Laboratory Results 07/30/17 07:20 08/01/17 08/02/17 08/03/17 05:59 05:59 05:59 Intake Total 980 720 120 Balance 980 720 120 Physical Exam - Physical Exam General Appearance: WD/WN, alert, no apparent distress EENT: other (Carotid airway, mom potty class 4. Unable to visualize posterior oropharynx.) Respiratory: normal breath sounds, No crackles, No rhonchi, No wheezing Cardiac/Chest: regular rate, rhythm, No edema, No diastolic murmur, No systolic murmur Skin: normal color, warm/dry Neuro/Psych: alert, normal mood/affect, oriented x 3, motor weakness (RUE and RLE) ICD10 Worksheet Patient Problems: Problems Problem Status Onset HTN (hypertension) Acute Hemorrhagic cerebrovascular accident (CVA) Acute Right hemiparesis Acute Shoulder pain, right Acute - ICD10 Problem Qualifiers (1) Hemorrhagic cerebrovascular accident (CVA) (2) Right hemiparesis (3) HTN (hypertension)
[2017-08-02] MEDS ORDERED: LISINOPRIL 40 MG TAB PO SCH (09:41)
[2017-08-02] MEDS: traZODone 50 MG TAB PO SCH (21:11)
[2017-08-02] MEDS: ATORVASTATIN CALCIUM 20 MG TAB PO SCH (21:11)
[2017-08-02] MEDS: PETROLAT,WHT/MIN OIL/SOD CHL 3.5 GM OPHT.OINT EACHEYE SCH (22:23)
[2017-08-03] MEDS: ENOXAPARIN 40 MG/0.4 ML SYR SC SCH (09:05)
[2017-08-03] MEDS: HYDROCHLOROTHIAZIDE 25 MG TAB PO SCH (09:05)
[2017-08-03] MEDS: PANTOPRAZOLE SODIUM 40 MG TAB PO SCH (09:05)
[2017-08-03] MEDS: LISINOPRIL 10 MG TAB PO SCH (09:09)
--- NOTE | 2017-08-03 15:14 | SOAPPROG ---
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 Initial functional independence measure 60 on 07/28/2017; improved to 71 as of 2016. He has been able to ambulate 10 feet with a right AFO. Moderate assist for bed mobility. Transfers to the right with minimal assist and to the left with moderate assist. Has easy fatigue. Able to use the right arm for gross support in grooming and hygiene. Dressing upper body with minimal assist and lower body with moderate assist. 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 Continue PT and OT to optimize his mobility and activities of daily living. * Dysphagia. Right facial and oral weakness, improving. Continue speech and language pathology. * Cognitive impairment. Higher level cognitive activities with Speech and Language Pathology. * Hypertension. Well controlled with lisinopril 30 mg QD, decreased from 40 mg q.day starting 08/03/17, and hydrochlorothiazide 12.5 mg q.day. BMP 07/30/17 with normal renal function; hyperkalemia due to hemolysis.. * Occasional cough and symptom of postnasal drainage. Trial of fluticasone nasal spray starting 08/03/2017. * Right shoulder pain, improved with topical NSAID. * Secondary stroke prophylaxis will be continued with atorvastatin as well as blood pressure control. * Insomnia. Discontinue lorazepam as it may be contributing to daytime fatigue. Improved with trazodone 50 mg at HS starting 07/29/2017. * Right eye irritation. He may not keep the eyelid closed on night. Initiated ophthalmic ointment at bedtime and moisturizing eyedrops p.r.n. on 07/27/2017. * History of gastroesophageal reflux disorder. Continue pantoprazole. * Obesity. Will consult dietitian for diet recommendations. * Constipation. He reports he will try prune juice as suggested by nursing. Continue polyethylene glycol q.day on a p.r.n. basis. * Prior cerebrovascular accident seen on magnetic resonance imaging in the right ezio. He will have physical and occupational therapy, and it is hoped that the prior infarction will not impact his rehabilitation. * Possible sleep apnea with history of snoring and crowded airway on exam. He will be assessed for need for oxygen overnight, and he should have a sleep study done after he discharges, to evaluate whether he has sleep apnea and would benefit from interventions. * Risk for deep venous thrombosis was discussed with neurosurgeon, Dr. Haynes, who agrees with prophylactic enoxaparin, started 07/26/17. Right lower extremity edema is resolved 07/27/2017 Attended staffing, 15 minutes. 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 Making progress but his goal is to be able to return to work. Tentative discharge date set for 08/25/2017. Family conference next week. FOLLOWUP: He is to follow up with primary care provider, Dr. Gema Greene, after discharge. 08/03/17 15:10 Subjective: Continues to experience postnasal drainage has an occasional cough. He has been sleeping in the bed but he is not yet comfortable having the bed all the way flat. OT reports an episode of anxiety when he was lying on his left side on the OT met. Otherwise without complaints. No fevers, chills; denies other allergic symptoms and does not feel like he has got an upper respiratory infection. Objective: Vital Signs Temp Pulse Resp BP Pulse Ox 36.9 C 68 18 124/70 H 92 08/03/17 06:38 08/03/17 06:38 08/03/17 06:38 08/03/17 09:09 08/03/17 06:38 Laboratory Results 07/30/17 07:20 08/02/17 08/03/17 08/04/17 05:59 05:59 05:59 Intake Total 720 660 440 Balance 720 710 440 - Time Spent With Patient Time Spent With Patient: Greater than 35 minutes floor time today, including more than 50% of time in coordination of care during staffing meeting, and counseling patient. Physical Exam - Physical Exam General Appearance: WD/WN, alert, no apparent distress Respiratory: normal breath sounds, No crackles, No rhonchi, No wheezing Cardiac/Chest: regular rate, rhythm, No edema, No diastolic murmur, No systolic murmur Skin: normal color, warm/dry Neuro/Psych: alert, normal mood/affect, oriented x 3, motor weakness (Right upper and lower extremities) ICD10 Worksheet Patient Problems: Problems Problem Status Onset HTN (hypertension) Acute Hemorrhagic cerebrovascular accident (CVA) Acute Right hemiparesis Acute Shoulder pain, right Acute - ICD10 Problem Qualifiers (1) Hemorrhagic cerebrovascular accident (CVA) (2) Right hemiparesis (3) HTN (hypertension)
[2017-08-03] MEDS: FLUTICASONE NASAL 120 SPRAYS/16 GM MDI EACHNARE SCH (18:10)
[2017-08-03] MEDS: ATORVASTATIN CALCIUM 20 MG TAB PO SCH (20:35)
[2017-08-03] MEDS: traZODone 50 MG TAB PO SCH (20:36)
[2017-08-03] MEDS: TROLAMINE SALICYLATE 85 GM CRTUBE TP PRN (20:36)
[2017-08-03] MEDS: PETROLAT,WHT/MIN OIL/SOD CHL 3.5 GM OPHT.OINT EACHEYE SCH (20:52)
[2017-08-04] MEDS: ENOXAPARIN 40 MG/0.4 ML SYR SC SCH (09:15)
[2017-08-04] MEDS: LISINOPRIL 10 MG TAB PO SCH (09:16)
[2017-08-04] MEDS: HYDROCHLOROTHIAZIDE 25 MG TAB PO SCH (09:17)
[2017-08-04] MEDS: FLUTICASONE NASAL 120 SPRAYS/16 GM MDI EACHNARE SCH (09:17)
[2017-08-04] MEDS: PANTOPRAZOLE SODIUM 40 MG TAB PO SCH (09:17)
[2017-08-04] MEDS: TROLAMINE SALICYLATE 85 GM CRTUBE TP PRN ×2 (09:18→21:13)
--- NOTE | 2017-08-04 11:12 | SOAPPROG ---
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 Initial functional independence measure 60 on 07/28/2017; improved to 71 as of 2016. He has been able to ambulate 10 feet with a right AFO. Moderate assist for bed mobility. Transfers to the right with minimal assist and to the left with moderate assist. Has easy fatigue. Able to use the right arm for gross support in grooming and hygiene. Dressing upper body with minimal assist and lower body with moderate assist. 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 Continue PT and OT to optimize his mobility and activities of daily living. * Dysphagia. Right facial and oral weakness, improving. Continue speech and language pathology. * Cognitive impairment. Higher level cognitive activities with Speech and Language Pathology. * Hypertension. Well controlled with lisinopril 30 mg QD, decreased from 40 mg q.day starting 08/03/17, and hydrochlorothiazide 12.5 mg q.day. BMP 07/30/17 with normal renal function; hyperkalemia due to hemolysis. * Occasional cough and symptom of postnasal drainage. Improved with fluticasone nasal spray starting 08/03/2017. * Right shoulder pain, improved with topical NSAID. * Difficulty attaining sleep. * Secondary stroke prophylaxis will be continued with atorvastatin as well as blood pressure control. * Insomnia. Discontinue lorazepam as it may be contributing to daytime fatigue. Improved with trazodone 50 mg at HS starting 07/29/2017. Trial of acetaminophen at bedtime to reduce discomfort, beginnin g1. * Right eye irritation. He may not keep the eyelid closed on night. Initiated ophthalmic ointment at bedtime and moisturizing eyedrops p.r.n. on 07/27/2017. * History of gastroesophageal reflux disorder. Continue pantoprazole. * Obesity. Will consult dietitian for diet recommendations. * Constipation. He reports he will try prune juice as suggested by nursing. Continue polyethylene glycol q.day on a p.r.n. basis. * Prior cerebrovascular accident seen on magnetic resonance imaging in the right ezio. He will have physical and occupational therapy, and it is hoped that the prior infarction will not impact his rehabilitation. * Possible sleep apnea with history of snoring and crowded airway on exam. He will be assessed for need for oxygen overnight, and he should have a sleep study done after he discharges, to evaluate whether he has sleep apnea and would benefit from interventions. * Risk for deep venous thrombosis was discussed with neurosurgeon, Dr. Haynes, who agrees with prophylactic enoxaparin, started 07/26/17. Right lower extremity edema is resolved 07/27/2017 Making progress but his goal is to be able to return to work. Tentative discharge date set for 08/25/2017. Family conference next week. FOLLOWUP: He is to follow up with primary care provider, Dr. Gema Greene, after discharge. 08/04/17 11:12 Subjective: Postnasal drainage is improved after starting fluticasone nasal spray yesterday. Describe some difficulty falling asleep due to difficulty in finding a comfortable position. Otherwise sleeps well. No cough, dyspnea, fevers, chills. Objective: Vital Signs Temp Pulse Resp BP Pulse Ox 37.0 C 70 16 112/60 95 08/04/17 07:11 08/04/17 07:11 08/04/17 07:11 08/04/17 09:17 08/04/17 07:11 Laboratory Results 07/30/17 07:20 08/03/17 08/04/17 08/05/17 05:59 05:59 05:59 Intake Total 660 740 120 Balance 660 740 120 Physical Exam - Physical Exam General Appearance: WD/WN, alert, no apparent distress Respiratory: normal breath sounds, No crackles, No rhonchi, No wheezing Cardiac/Chest: regular rate, rhythm, No edema Skin: normal color, warm/dry Neuro/Psych: alert, normal mood/affect, oriented x 3, motor weakness ICD10 Worksheet Patient Problems: Problems Problem Status Onset HTN (hypertension) Acute Hemorrhagic cerebrovascular accident (CVA) Acute Right hemiparesis Acute Shoulder pain, right Acute - ICD10 Problem Qualifiers (1) Hemorrhagic cerebrovascular accident (CVA) (2) Right hemiparesis (3) HTN (hypertension)
[2017-08-04] MEDS: ACETAMINOPHEN 325 MG TAB PO SCH (20:53)
[2017-08-04] MEDS: ATORVASTATIN CALCIUM 20 MG TAB PO SCH (20:53)
[2017-08-04] MEDS: traZODone 50 MG TAB PO SCH (20:53)
[2017-08-04] MEDS: PETROLAT,WHT/MIN OIL/SOD CHL 3.5 GM OPHT.OINT EACHEYE SCH ×2 (21:09→21:19)
[2017-08-05] MEDS: LISINOPRIL 10 MG TAB PO SCH (08:43)
[2017-08-05] MEDS: FLUTICASONE NASAL 120 SPRAYS/16 GM MDI EACHNARE SCH (08:43)
[2017-08-05] MEDS: HYDROCHLOROTHIAZIDE 25 MG TAB PO SCH (08:44)
[2017-08-05] MEDS: PANTOPRAZOLE SODIUM 40 MG TAB PO SCH (08:44)
[2017-08-05] MEDS: ENOXAPARIN 40 MG/0.4 ML SYR SC SCH (08:45)
--- NOTE | 2017-08-05 10:10 | SOAPPROG ---
[facility] Progress Note Assessment/Plan: 61 yo M s/p hemorrhagic left CVA 07/19/17 in thalamus and basal ganglia, and old right pontine lacunar infarct: Today's update: Participating well in therapies, shoulder pain does not appear to be complex regional pain syndrome or related to adhesive capsulitis. Appears to be most related to post stroke flaccid hemiparesis and shoulder subluxation. Plan to continue the right shoulder sling when the patient is up and interacting with therapies. Discussed with occupational therapy that possibility of a resting arm tray on his wheelchair. Okay to continue therapies and gentle range of motion at the shoulder. He continues to have movement essentially 0/5 on the right side entirely but he does have shoulder retraction on the right. Rechecking potassium tomorrow as his last 1 was 5.6 on 07/30, thought because of hemolysis. Patient had no residuals from previous right pontine stroke, was not aware that he had it. A total of 25 minutes was spent on the floor in the care of the patient, the majority of which was spent counseling and coordination of care regarding shoulder pain and post stroke care. All medical issues are new to this provider. * Impairments in mobility and self-care as well as cognition, with right-sided hemiparesis and reduced sensation. Initial functional independence measure 60 on 07/28/2017; improved to 71 as of 08/03/2017. He has been able to ambulate 10 feet with a right AFO. Moderate assist for bed mobility. Transfers to the right with minimal assist and to the left with moderate assist. Has easy fatigue. Able to use the right arm for gross support in grooming and hygiene. Dressing upper body with minimal assist and lower body with moderate assist. 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 Continue PT and OT to optimize his mobility and activities of daily living. * Dysphagia. Right facial and oral weakness, improving. Continue speech and language pathology. * Cognitive impairment. Higher level cognitive activities with Speech and Language Pathology. * Hypertension. Well controlled with lisinopril 30 mg QD, decreased from 40 mg q.day starting 08/03/17, and hydrochlorothiazide 12.5 mg q.day. BMP 07/30/17 with normal renal function; hyperkalemia due to hemolysis. Rechecking on 08/06 * Occasional cough and symptom of postnasal drainage. Improved with fluticasone nasal spray starting 08/03/2017. * Right shoulder pain, improved with topical NSAID. Also improved with positioning, shoulder sling and therapy. Monitor for any signs of complex regional pain syndrome or adhesive capsulitis. * Difficulty attaining sleep. Improved * Secondary stroke prophylaxis will be continued with atorvastatin as well as blood pressure control. * Insomnia. Discontinue lorazepam as it may be contributing to daytime fatigue. Improved with trazodone 50 mg at HS starting 07/29/2017. Trial of acetaminophen at bedtime to reduce discomfort, beginning 08/04/17. * Right eye irritation. He may not keep the eyelid closed on night. Initiated ophthalmic ointment at bedtime and moisturizing eyedrops p.r.n. on 07/27/2017. * History of gastroesophageal reflux disorder. Continue pantoprazole. * Obesity. Will consult dietitian for diet recommendations. * Constipation. He reports he will try prune juice as suggested by nursing. Continue polyethylene glycol q.day on a p.r.n. basis. * Prior cerebrovascular accident seen on magnetic resonance imaging in the right ezio. He will have physical and occupational therapy, and it is hoped that the prior infarction will not impact his rehabilitation. * Possible sleep apnea with history of snoring and crowded airway on exam. He will be assessed for need for oxygen overnight, and he should have a sleep study done after he discharges, to evaluate whether he has sleep apnea and would benefit from interventions. * Risk for deep venous thrombosis was discussed with neurosurgeon, Dr. Haynes, who agrees with prophylactic enoxaparin, started 07/26/17. Right lower extremity edema is resolved 07/27/2017 Making progress but his goal is to be able to return to work. Tentative discharge date set for 08/25/2017. Family conference next week. FOLLOWUP: He is to follow up with primary care provider, Dr. Gema Greene, after discharge. 08/05/17 10:00 Subjective: Chief complaint: Right-sided shoulder pain No acute events overnight. Patient denies any shortness of breath or chest pain , no new numbness, tingling, weakness. He continues to have pain in the right shoulder but no hand symptoms. He is able to passively move the shoulder without much pain. When asked about prior symptoms from his pontine stroke he did not know he had 1. Objective: Vital Signs Temp Pulse Resp BP Pulse Ox 36.6 C 67 14 134/78 H 93 08/05/17 07:34 08/05/17 07:34 08/05/17 07:34 08/05/17 07:34 08/05/17 07:34 Laboratory Results 07/30/17 07:20 08/04/17 08/05/17 08/06/17 05:59 05:59 05:59 Intake Total 740 480 450 Balance 740 480 450 Physical Exam - Physical Exam General Appearance: WD/WN, alert, no apparent distress EENT: No scleral icterus (R), No scleral icterus (L) Respiratory: lungs clear, normal breath sounds, No respiratory distress, No accessory muscle use Cardiac/Chest: normal peripheral pulses, regular rate, rhythm, No edema Abdomen: non-tender, soft Skin: normal color, warm/dry, No cyanosis Extremities: other (He had a mildly positive Squires test on the right shoulder , otherwise he had relatively pain-free passive range of motion. He did have a sulcus sign on the right shoulder as well. No hand swelling, no pain on squeezing of the metacarpals, no skin or vascular changes.) Neuro/Psych: alert, normal mood/affect, motor weakness (Flaccid right hemiparesis, particularly right upper limb) ICD10 Worksheet Patient Problems: Problems Problem Status Onset HTN (hypertension) Acute Hemorrhagic cerebrovascular accident (CVA) Acute Right hemiparesis Acute Shoulder pain, right Acute
[2017-08-05] MEDS: ATORVASTATIN CALCIUM 20 MG TAB PO SCH (20:41)
[2017-08-05] MEDS: ACETAMINOPHEN 325 MG TAB PO SCH (20:41)
[2017-08-05] MEDS: traZODone 50 MG TAB PO SCH (20:41)
[2017-08-05] MEDS: PETROLAT,WHT/MIN OIL/SOD CHL 3.5 GM OPHT.OINT EACHEYE SCH (21:00)
[2017-08-06 07:53] LABS: ANION GAP 11 mEq/L (8-16); CALCIUM 9.2 mg/dL (8.5-10.4); CARBON DIOXIDE 24 mEq/l (22-31); CHLORIDE 98 mEq/L (97-110); GLOMERULAR FILTRATION RATE > 60; GLUCOSE 101 mg/dL (70-100); POTASSIUM 4.1 mEq/L (3.5-5.2); SODIUM 133 mEq/L (134-144)
[2017-08-06] MEDS: FLUTICASONE NASAL 120 SPRAYS/16 GM MDI EACHNARE SCH (08:59)
[2017-08-06] MEDS: ENOXAPARIN 40 MG/0.4 ML SYR SC SCH (08:59)
[2017-08-06] MEDS: HYDROCHLOROTHIAZIDE 25 MG TAB PO SCH (08:59)
[2017-08-06] MEDS: LISINOPRIL 10 MG TAB PO SCH (09:00)
[2017-08-06] MEDS: PANTOPRAZOLE SODIUM 40 MG TAB PO SCH (09:01)
[2017-08-06] MEDS: TROLAMINE SALICYLATE 85 GM CRTUBE TP PRN (09:13)
--- NOTE | 2017-08-06 11:58 | SOAPPROG ---
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 Initial functional independence measure 60 on 07/28/2017; improved to 71 as of 2016. He has been able to ambulate 10 feet with a right AFO. Moderate assist for bed mobility. Transfers to the right with minimal assist and to the left with moderate assist. Has easy fatigue. Able to use the right arm for gross support in grooming and hygiene. Dressing upper body with minimal assist and lower body with moderate assist. 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 Continue PT and OT to optimize his mobility and activities of daily living. * Dysphagia. Right facial and oral weakness, improving. Continue speech and language pathology. * Cognitive impairment. Higher level cognitive activities with Speech and Language Pathology. * Hypertension. Well controlled with lisinopril 30 mg QD, decreased from 40 mg q.day starting 08/03/17, and hydrochlorothiazide 12.5 mg q.day. BMP 07/30/17 with normal renal function; hyperkalemia due to hemolysis. * Hyponatremia. Possibly due to hydrochlorothiazide that he is at a low dose. Ordered labs to evaluate for SIADH. * Occasional cough and symptom of postnasal drainage. Improved with fluticasone nasal spray starting 08/03/2017. * Right shoulder pain, improved with topical NSAID. * Secondary stroke prophylaxis will be continued with atorvastatin as well as blood pressure control. * Insomnia. Discontinue lorazepam as it may be contributing to daytime fatigue. Improved with trazodone 50 mg at HS starting 07/29/2017. Trial of acetaminophen at bedtime to reduce discomfort, beginning 08/04/17. * Right eye irritation. He may not keep the eyelid closed on night. Initiated ophthalmic ointment at bedtime and moisturizing eyedrops p.r.n. on 07/27/2017. * History of gastroesophageal reflux disorder. Continue pantoprazole. * Obesity. Will consult dietitian for diet recommendations. * Constipation. He reports he will try prune juice as suggested by nursing. Continue polyethylene glycol q.day on a p.r.n. basis. * Prior cerebrovascular accident seen on magnetic resonance imaging in the right ezio. He will have physical and occupational therapy, and it is hoped that the prior infarction will not impact his rehabilitation. * Possible sleep apnea with history of snoring and crowded airway on exam. He will be assessed for need for oxygen overnight, and he should have a sleep study done after he discharges, to evaluate whether he has sleep apnea and would benefit from interventions. * Risk for deep venous thrombosis was discussed with neurosurgeon, Dr. Haynes, who agrees with prophylactic enoxaparin, started 07/26/17. Right lower extremity edema is resolved 07/27/2017 Making progress but his goal is to be able to return to work. Tentative discharge date set for 08/25/2017. Family conference next week. FOLLOWUP: He is to follow up with primary care provider, Dr. Gema Greene, after discharge. 08/04/17 11:12 08/06/17 11:50 08/07/17 11:47 Subjective: No complaints. Reports that he has been walking with PT. Sleeps well when nurses get him positions rate in bed. No cough, dyspnea, fevers, chills. No pain. Objective: Vital Signs Temp Pulse Resp BP Pulse Ox 36.3 C 74 14 128/78 H 95 08/06/17 08:00 08/06/17 08:00 08/06/17 08:00 08/06/17 09:00 08/06/17 08:00 Laboratory Results 08/06/17 06:45 08/05/17 08/06/17 08/07/17 05:59 05:59 05:59 Intake Total 480 1580 300 Balance 480 1580 300 Physical Exam - Physical Exam General Appearance: WD/WN, alert, no apparent distress Respiratory: normal breath sounds, No crackles, No rhonchi, No wheezing Cardiac/Chest: regular rate, rhythm, No edema Skin: normal color, warm/dry Neuro/Psych: alert, normal mood/affect, oriented x 3 ICD10 Worksheet Patient Problems: Problems Problem Status Onset HTN (hypertension) Acute Hemorrhagic cerebrovascular accident (CVA) Acute Right hemiparesis Acute Shoulder pain, right Acute - ICD10 Problem Qualifiers (1) Hemorrhagic cerebrovascular accident (CVA) (2) Right hemiparesis (3) HTN (hypertension)
[2017-08-06 13:38] LABS: URIC ACID 8.6 mg/dL (3.5-8.5)
[2017-08-06] MEDS: traZODone 50 MG TAB PO SCH (20:22)
[2017-08-06] MEDS: ATORVASTATIN CALCIUM 20 MG TAB PO SCH (20:22)
[2017-08-06] MEDS: ACETAMINOPHEN 325 MG TAB PO SCH (20:22)
[2017-08-06] MEDS: PETROLAT,WHT/MIN OIL/SOD CHL 3.5 GM OPHT.OINT EACHEYE SCH (20:23)
[2017-08-07] MEDS: ENOXAPARIN 40 MG/0.4 ML SYR SC SCH ×2 (08:06→08:08)
[2017-08-07] MEDS: PANTOPRAZOLE SODIUM 40 MG TAB PO SCH (08:07)
[2017-08-07] MEDS: LISINOPRIL 10 MG TAB PO SCH (08:07)
[2017-08-07] MEDS: FLUTICASONE NASAL 120 SPRAYS/16 GM MDI EACHNARE SCH (08:07)
--- NOTE | 2017-08-07 11:47 | SOAPPROG ---
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 Initial functional independence measure 60 on 07/28/2017; improved to 71 as of 2016. He has been able to ambulate 10 feet with a right AFO; much improved 08/07 ambulating 40 feet with front wheeled walker and assistance per PT. Moderate assist for bed mobility. Transfers to the right with minimal assist and to the left with moderate assist. Has easy fatigue. Able to use the right arm for gross support in grooming and hygiene. Dressing upper body with minimal assist and lower body with moderate assist. 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 Continue PT and OT to optimize his mobility and activities of daily living. * Dysphagia. Right facial and oral weakness, improving. Continue speech and language pathology. * Cognitive impairment. Higher level cognitive activities with Speech and Language Pathology. * Hypertension. Hydrochlorothiazide discontinued due to hyponatremia. Well controlled today with lisinopril 30 mg and amlodipine 2.5 mg. Continue to monitor and adjust accordingly. * Hyponatremia. Possibly due to hydrochlorothiazide; discontinued starting 08/07. Ordered labs to evaluate for SIADH; unclear whether this is SIADH or hydrochlorothiazide effect. Recheck BMP 08/09/2017. * Occasional cough and symptom of postnasal drainage. Improved with fluticasone nasal spray starting 08/03/2017. * Right shoulder pain, improved with topical NSAID. * Secondary stroke prophylaxis will be continued with atorvastatin as well as blood pressure control. * Insomnia. Discontinue lorazepam as it may be contributing to daytime fatigue. Improved with trazodone 50 mg at HS starting 07/29/2017. Trial of acetaminophen at bedtime to reduce discomfort, beginning 08/04/17. * Right eye irritation. He may not keep the eyelid closed on night. Initiated ophthalmic ointment at bedtime and moisturizing eyedrops p.r.n. on 07/27/2017. * History of gastroesophageal reflux disorder. Continue pantoprazole. * Obesity. Will consult dietitian for diet recommendations. * Constipation. He reports he will try prune juice as suggested by nursing. Continue polyethylene glycol q.day on a p.r.n. basis. * Prior cerebrovascular accident seen on magnetic resonance imaging in the right ezio. He will have physical and occupational therapy, and it is hoped that the prior infarction will not impact his rehabilitation. * Possible sleep apnea with history of snoring and crowded airway on exam. He will be assessed for need for oxygen overnight, and he should have a sleep study done after he discharges, to evaluate whether he has sleep apnea and would benefit from interventions. * Risk for deep venous thrombosis was discussed with neurosurgeon, Dr. Haynes, who agrees with prophylactic enoxaparin, started 07/26/17. Right lower extremity edema is resolved 07/27/2017 Making progress but his goal is to be able to return to work. Tentative discharge date set for 08/25/2017. Family conference next week. FOLLOWUP: He is to follow up with primary care provider, Dr. Gema Greene, after discharge. 08/07/17 11:43 Subjective: No complaints. Not in pain. Slept well. Reports that he walked 40 feet with PT. Objective: Vital Signs Temp Pulse Resp BP Pulse Ox 36.6 C 68 16 106/66 92 08/07/17 06:39 08/07/17 08:15 08/07/17 06:39 08/07/17 08:15 08/07/17 06:39 Laboratory Results 08/06/17 06:45 08/06/17 08/07/17 08/08/17 05:59 05:59 05:59 Intake Total 1580 1500 118 Output Total 700 Balance 1580 800 118 Physical Exam - Physical Exam General Appearance: WD/WN, alert, no apparent distress Respiratory: No respiratory distress, No accessory muscle use Skin: normal color, warm/dry Neuro/Psych: alert, normal mood/affect, oriented x 3, abnormal gait (With front wheeled walker and assistance per PT, foot drag on the right but able to bear weight on the right lower extremity), motor weakness (Right lower extremity able to bear weight, able to swing forward while ambulating. Right upper extremity needs assistance to place on front wheeled walker. Has some movement at the fingers. Able to bear some weight with triceps extension.) ICD10 Worksheet Patient Problems: Problems Problem Status Onset HTN (hypertension) Acute Hemorrhagic cerebrovascular accident (CVA) Acute Right hemiparesis Acute Shoulder pain, right Acute - ICD10 Problem Qualifiers (1) Hemorrhagic cerebrovascular accident (CVA) (2) Right hemiparesis (3) HTN (hypertension)
[2017-08-07] MEDS ORDERED: ONDANSETRON DISINTEGRATING 4 MG TAB ONE (15:02)
[2017-08-07] MEDS: PETROLAT,WHT/MIN OIL/SOD CHL 3.5 GM OPHT.OINT EACHEYE SCH (21:00)
[2017-08-07] MEDS: ATORVASTATIN CALCIUM 20 MG TAB PO SCH (21:19)
[2017-08-07] MEDS: traZODone 50 MG TAB PO SCH (21:19)
[2017-08-07] MEDS: ACETAMINOPHEN 325 MG TAB PO SCH (21:19)
[2017-08-07] MEDS: FLUTICASONE NASAL 120 SPRAYS/16 GM MDI EACHNARE PRN (21:52)
[2017-08-08] MEDS: PANTOPRAZOLE SODIUM 40 MG TAB PO SCH (09:02)
[2017-08-08] MEDS: LISINOPRIL 10 MG TAB PO SCH (09:02)
[2017-08-08] MEDS: TROLAMINE SALICYLATE 85 GM CRTUBE TP PRN ×2 (09:03→20:04)
[2017-08-08] MEDS: ACETAMINOPHEN 325 MG TAB PO PRN (11:13)
--- NOTE | 2017-08-08 11:57 | SOAPPROG ---
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 Initial functional independence measure 60 on 07/28/2017; improved to 71 as of 2016. Was been able to ambulate 10 feet with a right AFO; subsequently has ambulated 40 feet. Moderate assist for bed mobility. Transfers to the right with minimal assist and to the left with moderate assist. Has easy fatigue. Able to use the right arm for gross support in grooming and hygiene. Dressing upper body with minimal assist and lower body with moderate assist. 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 Continue PT and OT to optimize his mobility and activities of daily living. * Dysphagia. Right facial and oral weakness, improving. Continue speech and language pathology. * Cognitive impairment. Higher level cognitive activities with Speech and Language Pathology. * Hypertension. Well controlled with lisinopril 30 mg QD, decreased from 40 mg q.day starting 08/03/17, and amlodipine 2.5 make q.day. BMP 07/30/17 with normal renal function; hyperkalemia due to hemolysis. * Hyponatremia. Possibly due to hydrochlorothiazide though he is at a low dose. Labs for SIADH not completely consistent, with elevated uric acid; will also not expect elevated uric acid if the hyponatremia was purely due to a hydrochlorothiazide. Recheck BMP 08/09/2017 now that he is off hydrochlorothiazide.. * Occasional cough and symptom of postnasal drainage. Improved with fluticasone nasal spray starting 08/03/2017; changed to p.r.n. 08/07/2017 at his request. * Right shoulder pain, improved with topical NSAID. * Secondary stroke prophylaxis will be continued with atorvastatin as well as blood pressure control. * Insomnia. Discontinue lorazepam as it may be contributing to daytime fatigue. Improved with trazodone 50 mg at HS starting 07/29/2017. Trial of acetaminophen at bedtime to reduce discomfort, beginning 08/04/17. * Right eye irritation. He may not keep the eyelid closed on night. Initiated ophthalmic ointment at bedtime and moisturizing eyedrops p.r.n. on 07/27/2017. * History of gastroesophageal reflux disorder. Continue pantoprazole. * Obesity. Will consult dietitian for diet recommendations. * Constipation. He reports he will try prune juice as suggested by nursing. Continue polyethylene glycol q.day on a p.r.n. basis. * Prior cerebrovascular accident seen on magnetic resonance imaging in the right ezio. He will have physical and occupational therapy, and it is hoped that the prior infarction will not impact his rehabilitation. * Possible sleep apnea with history of snoring and crowded airway on exam. He will be assessed for need for oxygen overnight, and he should have a sleep study done after he discharges, to evaluate whether he has sleep apnea and would benefit from interventions. * Risk for deep venous thrombosis was discussed with neurosurgeon, Dr. Haynes, who agrees with prophylactic enoxaparin, started 07/26/17. Right lower extremity edema is resolved 07/27/2017 Making progress but his goal is to be able to return to work. Tentative discharge date set for 08/25/2017. Family conference next week. FOLLOWUP: He is to follow up with primary care provider, Dr. Gema Greene, after discharge. 08/08/17 11:53 Subjective: Complains of right knee pain. Thinks it may be due to increased activity with ambulation with PT. Otherwise without complaint. No cough, dyspnea, fevers, chills. Objective: Vital Signs Temp Pulse Resp BP Pulse Ox 36.4 C 67 16 110/68 92 08/08/17 06:59 08/08/17 06:59 08/08/17 06:59 08/08/17 09:02 08/08/17 06:59 Laboratory Results 08/06/17 06:45 08/07/17 08/08/17 08/09/17 05:59 05:59 05:59 Intake Total 1500 354 386 Output Total 700 Balance 800 354 386 Physical Exam - Physical Exam General Appearance: WD/WN, alert, no apparent distress Respiratory: No respiratory distress, No accessory muscle use Skin: normal color, warm/dry Extremities: other (Right knee with feet general tenderness medially but no point tenderness over answering bursa. No effusion. Normal range of motion.) Neuro/Psych: alert, normal mood/affect, oriented x 3, motor weakness (Right upper and lower extremities) ICD10 Worksheet Patient Problems: Problems Problem Status Onset HTN (hypertension) Acute Hemorrhagic cerebrovascular accident (CVA) Acute Right hemiparesis Acute Shoulder pain, right Acute - ICD10 Problem Qualifiers (1) Hemorrhagic cerebrovascular accident (CVA) (2) Right hemiparesis (3) HTN (hypertension)
[2017-08-08] MEDS: ACETAMINOPHEN 325 MG TAB PO SCH (20:00)
[2017-08-08] MEDS: ATORVASTATIN CALCIUM 20 MG TAB PO SCH (20:00)
[2017-08-08] MEDS: traZODone 50 MG TAB PO SCH (20:00)
[2017-08-08] MEDS: FLUTICASONE NASAL 120 SPRAYS/16 GM MDI EACHNARE PRN (20:04)
[2017-08-08] MEDS: PETROLAT,WHT/MIN OIL/SOD CHL 3.5 GM OPHT.OINT EACHEYE SCH (21:47)
[2017-08-09] MEDS: PANTOPRAZOLE SODIUM 40 MG TAB PO SCH (08:56)
[2017-08-09] MEDS: LISINOPRIL 10 MG TAB PO SCH (08:59)
[2017-08-09] MEDS: ENOXAPARIN 40 MG/0.4 ML SYR SC SCH (09:04)
--- NOTE | 2017-08-09 14:25 | SOAPPROG ---
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 Initial functional independence measure 60 on 07/28/2017; improved to 72 as of 08/03/2017 , and 276 as of 08/09/2017. Has ambulated multiple times, tended 15 feet with minimal assist of 2 using a right AFO and a 4 wheeled walker. Plant progressed to tracking pole. Minimal to moderate assistance for transfers. Contact guard to minimal assist for bed mobility. Upper body dressing with minimal assist, lower body dressing with moderate assist, bathing with minimal assist. Decreased sensation on the left noted. 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 Continue PT and OT to optimize his mobility and activities of daily living. * Cognitive impairment. Higher level cognitive activities with Speech and Language Pathology. * Hypertension. Well controlled with lisinopril 30 mg QD, decreased from 40 mg q.day starting 08/03/17, and amlodipine 2.5 make q.day. BMP 07/30/17 with normal renal function; hyperkalemia due to hemolysis. * Hyponatremia. Possibly due to hydrochlorothiazide though he is at a low dose. Labs for SIADH not completely consistent, with elevated uric acid; will also not expect elevated uric acid if the hyponatremia was purely due to a hydrochlorothiazide. Recheck BMP 08/10/2017 now that he is off hydrochlorothiazide.. * Occasional cough and symptom of postnasal drainage. Improved with fluticasone nasal spray starting 08/03/2017; changed to p.r.n. 08/07/2017 at his request. * Right shoulder pain, improved with topical NSAID. * Secondary stroke prophylaxis will be continued with atorvastatin as well as blood pressure control. * Insomnia. Discontinue lorazepam as it may be contributing to daytime fatigue. Improved with trazodone 50 mg at HS starting 07/29/2017. Trial of acetaminophen at bedtime to reduce discomfort, beginning 08/04/17. * Right eye irritation. He may not keep the eyelid closed at night. Initiated ophthalmic ointment at bedtime and moisturizing eyedrops p.r.n. on 07/27/2017. * Dysphagia. Has met goals regarding swallowing. * History of gastroesophageal reflux disorder. Continue pantoprazole. * Obesity. Will consult dietitian for diet recommendations. * Constipation. He reports he will try prune juice as suggested by nursing. Continue polyethylene glycol q.day on a p.r.n. basis. * Prior cerebrovascular accident seen on magnetic resonance imaging in the right ezio. He will have physical and occupational therapy, and it is hoped that the prior infarction will not impact his rehabilitation. * Possible sleep apnea with history of snoring and crowded airway on exam. He will be assessed for need for oxygen overnight, and he should have a sleep study done after he discharges, to evaluate whether he has sleep apnea and would benefit from interventions. * Risk for deep venous thrombosis was discussed with neurosurgeon, Dr. Haynes, who agrees with prophylactic enoxaparin, started 07/26/17. Right lower extremity edema is resolved 07/27/2017 Attended staffing, 15 minutes. Discussed with case management, nursing, PT, OT , DIRECTOR DIGITAL. Continuing to make slow progress. Continue tentative discharge date of 08/25/2017. FOLLOWUP: He is to follow up with primary care provider, Dr. Gema Greene, after discharge. 08/09/17 14:20 Subjective: Slept well. Has some right shoulder pain improved after soft tissue work by OT. Notes that he can't learn new ways to move from the description; he has to practice them multiple times. Objective: Vital Signs Temp Pulse Resp BP Pulse Ox 36.5 C 66 16 110/68 92 08/09/17 06:43 08/09/17 06:43 08/09/17 06:43 08/09/17 08:59 08/09/17 06:43 Laboratory Results 08/06/17 06:45 08/08/17 08/09/17 08/10/17 05:59 05:59 05:59 Intake Total 354 6997 660 Balance 354 8716 660 - Time Spent With Patient Time Spent With Patient: Greater than 35 minutes staff time today, including more than 50% of time in coordination of care during staffing meeting, and counseling patient. Physical Exam - Physical Exam General Appearance: WD/WN, alert, no apparent distress Respiratory: normal breath sounds, No crackles, No rhonchi, No wheezing Cardiac/Chest: regular rate, rhythm, No diastolic murmur, No systolic murmur Skin: normal color, warm/dry Neuro/Psych: alert, normal mood/affect, oriented x 3, motor weakness (Right upper and lower extremities), other (Observed working with PT practicing arising from wheelchair while extending left hand down onto PT mat.) ICD10 Worksheet Patient Problems: Problems Problem Status Onset HTN (hypertension) Acute Hemorrhagic cerebrovascular accident (CVA) Acute Right hemiparesis Acute Shoulder pain, right Acute - ICD10 Problem Qualifiers (1) Hemorrhagic cerebrovascular accident (CVA) (2) Right hemiparesis (3) HTN (hypertension)
[2017-08-09] MEDS: ACETAMINOPHEN 325 MG TAB PO SCH (19:54)
[2017-08-09] MEDS: traZODone 50 MG TAB PO SCH (19:55)
[2017-08-09] MEDS: TROLAMINE SALICYLATE 85 GM CRTUBE TP PRN (19:55)
[2017-08-09] MEDS: FLUTICASONE NASAL 120 SPRAYS/16 GM MDI EACHNARE PRN (19:55)
[2017-08-09] MEDS: PETROLAT,WHT/MIN OIL/SOD CHL 3.5 GM OPHT.OINT EACHEYE SCH (20:00)
[2017-08-09] MEDS: ATORVASTATIN CALCIUM 20 MG TAB PO SCH (21:29)
[2017-08-10] MEDS: ENOXAPARIN 40 MG/0.4 ML SYR SC SCH (08:44)
[2017-08-10] MEDS: LISINOPRIL 10 MG TAB PO SCH (08:45)
[2017-08-10] MEDS: PANTOPRAZOLE SODIUM 40 MG TAB PO SCH (08:45)
--- NOTE | 2017-08-10 08:46 | SOAPPROG ---
SOAP Progress Note Assessment/Plan: 61 yo M s/p hemorrhagic left CVA 07/19/17 in thalamus and basal ganglia, and old right pontine lacunar infarct: Today's update: Overall, patient doing well with therapies, making some neurological progress. Continues to use an ankle-foot orthosis that should be ordered if it looks like he will need it going home on discharge. Shoulder pain is improved with shoulder sling use and resting tray. Continues to have some mild right-sided shoulder subluxation, no symptoms in the hand, full range of motion. No concern for CRPS or frozen shoulder at this point. * Impaired mobility and self-care with right-sided hemiparesis and reduced sensation. Initial functional independence measure 60 on 07/28/2017; improved to 72 as of 08/03/2017, and 276 as of 08/09/2017. Has ambulated multiple times, tended 15 feet with minimal assist of 2 using a right AFO and a 4 wheeled walker. Plant progressed to tracking pole. Minimal to moderate assistance for transfers. Contact guard to minimal assist for bed mobility. Upper body dressing with minimal assist, lower body dressing with moderate assist, bathing with minimal assist. Decreased sensation on the left noted. 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 Continue PT and OT to optimize his mobility and activities of daily living. Plan to order ankle-foot orthosis closer to discharge if 1 will be needed after acute rehab course. * Cognitive impairment. Higher level cognitive activities with Speech and Language Pathology. * Hypertension. Well controlled with lisinopril 30 mg QD, decreased from 40 mg q.day starting 08/03/17, and amlodipine 2.5 make q.day. BMP 07/30/17 with normal renal function; hyperkalemia due to hemolysis. * Hyponatremia. Possibly due to hydrochlorothiazide though he is at a low dose. Labs for SIADH not completely consistent, with elevated uric acid; will also not expect elevated uric acid if the hyponatremia was purely due to a hydrochlorothiazide. Recheck BMP 08/10/2017 now that he is off hydrochlorothiazide.. * Occasional cough and symptom of postnasal drainage. Improved with fluticasone nasal spray starting 08/03/2017; changed to p.r.n. 08/07/2017 at his request. * Right shoulder pain, improved with topical NSAID. * Secondary stroke prophylaxis will be continued with atorvastatin as well as blood pressure control. * Insomnia. Discontinue lorazepam as it may be contributing to daytime fatigue. Improved with trazodone 50 mg at HS starting 07/29/2017. Trial of acetaminophen at bedtime to reduce discomfort, beginning 08/04/17. * Right eye irritation. He may not keep the eyelid closed at night. Initiated ophthalmic ointment at bedtime and moisturizing eyedrops p.r.n. on 07/27/2017. * Dysphagia. Has met goals regarding swallowing. * History of gastroesophageal reflux disorder. Continue pantoprazole. * Obesity. Will consult dietitian for diet recommendations. * Constipation. He reports he will try prune juice as suggested by nursing. Continue polyethylene glycol q.day on a p.r.n. basis. * Prior cerebrovascular accident seen on magnetic resonance imaging in the right ezio. He will have physical and occupational therapy, and it is hoped that the prior infarction will not impact his rehabilitation. * Possible sleep apnea with history of snoring and crowded airway on exam. He will be assessed for need for oxygen overnight, and he should have a sleep study done after he discharges, to evaluate whether he has sleep apnea and would benefit from interventions. * Risk for deep venous thrombosis was discussed with neurosurgeon, Dr. Haynes, who agrees with prophylactic enoxaparin, started 07/26/17. Right lower extremity edema is resolved 07/27/2017 Attended staffing, 15 minutes. Discussed with case management, nursing, PT, OT , SUPERVISOR [employer]. Continuing to make slow progress. Continue tentative discharge date of 08/25/2017. FOLLOWUP: He is to follow up with primary care provider, Dr. Gema Greene, after discharge. 08/05/17 10:00 08/10/17 08:43 Subjective: Chief complaint: Shoulder pain No acute events overnight, patient endorses some improved shoulder pain, still has some mild swelling in the hand. Patient has good range of motion in the shoulder, denies any pain in the hand. Additionally, he notes that he feels like sensation is getting slightly better in the right hand. No new shortness of breath or chest pain, no new numbness, tingling, or weakness. He is currently using an AFO provided by the hospital and would need 1 ordered if he plans to discharge with it. He feels overall that his shoulder pain is improved with the use of the sling and the resting tray on his wheelchair. AFO is fitting well, no skin breakdown or redness. Objective: Vital Signs Temp Pulse Resp BP Pulse Ox 36.6 C 77 16 117/72 94 08/10/17 05:59 08/10/17 05:59 08/10/17 05:59 08/10/17 05:59 08/10/17 05:59 Laboratory Results 08/06/17 06:45 08/09/17 08/10/17 08/11/17 05:59 05:59 05:59 Intake Total 1146 1300 Balance 1146 1300 Physical Exam - Physical Exam General Appearance: WD/WN, alert, no apparent distress Respiratory: No respiratory distress, No accessory muscle use Cardiac/Chest: regular rate, rhythm, No edema Skin: normal color, warm/dry, No cyanosis, No diaphoresis Extremities: normal range of motion (At the right shoulder, pain-free, passive range of motion), normal inspection, other (Slightly increased distance between the acromion and the humeral head on the right compared to the left), No swelling (At the right hand) Neuro/Psych: alert, normal mood/affect, oriented x 3, motor weakness (Profound right-sided hemiparesis), sensory deficit (On the right side, when looking at the hand he thought that he felt light touch, but with eyes closed he did not feel it.), other (AFO on the right foot, had 1/5 strength in ankle dorsiflexor, skin intact.) ICD10 Worksheet Patient Problems: Problems Problem Status Onset HTN (hypertension) Acute Hemorrhagic cerebrovascular accident (CVA) Acute Right hemiparesis Acute Shoulder pain, right Acute
[2017-08-10] MEDS: ATORVASTATIN CALCIUM 20 MG TAB PO SCH (20:33)
[2017-08-10] MEDS: traZODone 50 MG TAB PO SCH (20:33)
[2017-08-10] MEDS: ACETAMINOPHEN 325 MG TAB PO SCH (20:33)
[2017-08-10] MEDS: PETROLAT,WHT/MIN OIL/SOD CHL 3.5 GM OPHT.OINT EACHEYE SCH (20:38)
[2017-08-10] MEDS: FLUTICASONE NASAL 120 SPRAYS/16 GM MDI EACHNARE PRN (22:11)
[2017-08-11] MEDS: PANTOPRAZOLE SODIUM 40 MG TAB PO SCH (09:07)
[2017-08-11] MEDS: ENOXAPARIN 40 MG/0.4 ML SYR SC SCH (09:07)
[2017-08-11] MEDS: LISINOPRIL 10 MG TAB PO SCH (09:09)
--- NOTE | 2017-08-11 18:28 | SOAPPROG ---
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 Initial functional independence measure 60 on 07/28/2017; improved to 72 as of 08/03/2017 , and to 76 as of 08/09/2017. Has ambulated multiple times, 10 - 15 feet with minimal assist of 2 using a right AFO and a 4 wheeled walker. Plan to progress to [facility]. Minimal to moderate assistance for transfers. Contact guard to minimal assist for bed mobility. Upper body dressing with minimal assist, lower body dressing with moderate assist, bathing with minimal assist. Decreased sensation on the left noted. 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 Continue PT and OT to optimize his mobility and activities of daily living. * Cognitive impairment. Higher level cognitive activities with Speech and Language Pathology. * Hypertension. Well controlled with lisinopril 30 mg QD, decreased from 40 mg q.day starting 08/03/17, and amlodipine 2.5 make q.day. BMP 07/30/17 with normal renal function; hyperkalemia due to hemolysis. * Hyponatremia. Possibly due to hydrochlorothiazide though he is at a low dose. Labs for SIADH not completely consistent, with elevated uric acid; will also not expect elevated uric acid if the hyponatremia was purely due to a hydrochlorothiazide. Recheck BMP 08/12/2017 now that he is off hydrochlorothiazide. Chronic/stable conditions: * Occasional cough and symptom of postnasal drainage. Improved with fluticasone nasal spray starting 08/03/2017; changed to p.r.n. 08/07/2017 at his request. * Right shoulder pain, improved with topical NSAID. * Secondary stroke prophylaxis will be continued with atorvastatin as well as blood pressure control. * Insomnia. Discontinue lorazepam as it may be contributing to daytime fatigue. Improved with trazodone 50 mg at HS starting 07/29/2017. Trial of acetaminophen at bedtime to reduce discomfort, beginning 08/04/17. * Right eye irritation. He may not keep the eyelid closed at night. Initiated ophthalmic ointment at bedtime and moisturizing eyedrops p.r.n. on 07/27/2017. * Dysphagia. Has met goals regarding swallowing. * History of gastroesophageal reflux disorder. Continue pantoprazole. * Obesity. Will consult dietitian for diet recommendations. * Constipation. He reports he will try prune juice as suggested by nursing. Continue polyethylene glycol q.day on a p.r.n. basis. * Prior cerebrovascular accident seen on magnetic resonance imaging in the right ezio. He will have physical and occupational therapy, and it is hoped that the prior infarction will not impact his rehabilitation. * Possible sleep apnea with history of snoring and crowded airway on exam. He will be assessed for need for oxygen overnight, and he should have a sleep study done after he discharges, to evaluate whether he has sleep apnea and would benefit from interventions. * Risk for deep venous thrombosis was discussed with neurosurgeon, Dr. Haynes, who agrees with prophylactic enoxaparin, started 07/26/17. Right lower extremity edema is resolved 07/27/2017 Continuing to make slow progress. Continue tentative discharge date of 2016. FOLLOWUP: He is to follow up with primary care provider, Dr. Gema Greene, after discharge. 08/11/17 18:25 Subjective: No complaints. R shoulder pain has not recurred after massage per OT 2 days ago. Improving movement at the right shoulder but not yet more distally in the arm. Objective: Vital Signs Temp Pulse Resp BP Pulse Ox 36.7 C 76 17 118/74 95 08/11/17 07:50 08/11/17 07:50 08/11/17 07:50 08/11/17 09:09 08/11/17 07:50 Laboratory Results 08/06/17 06:45 08/10/17 08/11/17 08/12/17 05:59 05:59 05:59 Intake Total 1300 368 354 Balance 1300 368 354 Physical Exam - Physical Exam General Appearance: WD/WN, alert, no apparent distress Respiratory: No respiratory distress, No accessory muscle use Skin: normal color, warm/dry Neuro/Psych: alert, normal mood/affect, oriented x 3, motor weakness (RUE & RLE) ICD10 Worksheet Patient Problems: Problems Problem Status Onset HTN (hypertension) Acute Hemorrhagic cerebrovascular accident (CVA) Acute Right hemiparesis Acute Shoulder pain, right Acute - ICD10 Problem Qualifiers (1) Hemorrhagic cerebrovascular accident (CVA) (2) Right hemiparesis (3) HTN (hypertension)
[2017-08-11] MEDS: ATORVASTATIN CALCIUM 20 MG TAB PO SCH (20:13)
[2017-08-11] MEDS: traZODone 50 MG TAB PO SCH (20:13)
[2017-08-11] MEDS: ACETAMINOPHEN 325 MG TAB PO SCH (20:13)
[2017-08-11] MEDS: PETROLAT,WHT/MIN OIL/SOD CHL 3.5 GM OPHT.OINT EACHEYE SCH (20:13)
[2017-08-12] MEDS: ENOXAPARIN 40 MG/0.4 ML SYR SC SCH (08:02)
[2017-08-12] MEDS: PANTOPRAZOLE SODIUM 40 MG TAB PO SCH (08:03)
[2017-08-12] MEDS: LISINOPRIL 10 MG TAB PO SCH (08:03)
[2017-08-12 08:26] LABS: ANION GAP 8 mEq/L (8-16); CALCIUM 9.3 mg/dL (8.5-10.4); CARBON DIOXIDE 24 mEq/l (22-31); CHLORIDE 103 mEq/L (97-110); CREATININE 0.9 mg/dL (0.7-1.3); GLOMERULAR FILTRATION RATE > 60; GLUCOSE 92 mg/dL (70-100); POTASSIUM 4.4 mEq/L (3.5-5.2); SODIUM 135 mEq/L (134-144)
--- NOTE | 2017-08-12 13:16 | SOAPPROG ---
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 Initial functional independence measure 60 on 07/28/2017; improved to 72 as of 08/03/2017 , and to 76 as of 08/09/2017. Has ambulated multiple times, 10 - 15 feet with minimal assist of 2 using a right AFO and a 4 wheeled walker. Plan to progress to [facility]. Minimal to moderate assistance for transfers. Contact guard to minimal assist for bed mobility. Upper body dressing with minimal assist, lower body dressing with moderate assist, bathing with minimal assist. Decreased sensation on the left noted. 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 Continue PT and OT to optimize his mobility and activities of daily living. * Cognitive impairment. Higher level cognitive activities with Speech and Language Pathology. * Hypertension. Well controlled with lisinopril 30 mg QD, decreased from 40 mg q.day starting 08/03/17, and amlodipine 2.5 make q.day. BMP 07/30/17 with normal renal function; hyperkalemia due to hemolysis. * Hyponatremia. Possibly due to hydrochlorothiazide though he is at a low dose. Labs for SIADH not completely consistent, with elevated uric acid; will also not expect elevated uric acid if the hyponatremia was purely due to a hydrochlorothiazide. Repeat sodium is normal. Will continue off hydrochlorothiazide and watch blood pressure Chronic/stable conditions: * Occasional cough and symptom of postnasal drainage. Improved with fluticasone nasal spray starting 08/03/2017; changed to p.r.n. 08/07/2017 at his request. * Right shoulder pain, improved with topical NSAID. * Secondary stroke prophylaxis will be continued with atorvastatin as well as blood pressure control. * Insomnia. Discontinue lorazepam as it may be contributing to daytime fatigue. Improved with trazodone 50 mg at HS starting 07/29/2017. Trial of acetaminophen at bedtime to reduce discomfort, beginning 08/04/17. * Right eye irritation. He may not keep the eyelid closed at night. Initiated ophthalmic ointment at bedtime and moisturizing eyedrops p.r.n. on 07/27/2017. * Dysphagia. Has met goals regarding swallowing. * History of gastroesophageal reflux disorder. Continue pantoprazole. * Obesity. Will consult dietitian for diet recommendations. * Constipation. He reports he will try prune juice as suggested by nursing. Continue polyethylene glycol q.day on a p.r.n. basis. * Prior cerebrovascular accident seen on magnetic resonance imaging in the right ezio. He will have physical and occupational therapy, and it is hoped that the prior infarction will not impact his rehabilitation. * Possible sleep apnea with history of snoring and crowded airway on exam. He will be assessed for need for oxygen overnight, and he should have a sleep study done after he discharges, to evaluate whether he has sleep apnea and would benefit from interventions. * Risk for deep venous thrombosis was discussed with neurosurgeon, Dr. Haynes, who agrees with prophylactic enoxaparin, started 07/26/17. Right lower extremity edema is resolved 07/27/2017 Plan: 08/12/17 13:15 Subjective: No new complaints. Does get occasional right shoulder pain Objective: Vital Signs Temp Pulse Resp BP Pulse Ox 36.5 C 78 14 124/68 H 94 08/12/17 08:00 08/12/17 08:00 08/12/17 08:00 08/12/17 08:03 08/12/17 08:00 Laboratory Results 08/12/17 06:25 08/11/17 08/12/17 08/13/17 05:59 05:59 05:59 Intake Total 368 772 Output Total 350 Balance 368 772 -350 Physical Exam - Physical Exam General Appearance: alert, no apparent distress Respiratory: No respiratory distress Skin: normal color Neuro/Psych: motor weakness (Right higinio paresis) ICD10 Worksheet Patient Problems: Problems Problem Status Onset HTN (hypertension) Acute Hemorrhagic cerebrovascular accident (CVA) Acute Right hemiparesis Acute Shoulder pain, right Acute
[2017-08-12] MEDS: ACETAMINOPHEN 325 MG TAB PO SCH (21:13)
[2017-08-12] MEDS: ATORVASTATIN CALCIUM 20 MG TAB PO SCH (21:13)
[2017-08-12] MEDS: traZODone 50 MG TAB PO SCH (21:13)
[2017-08-12] MEDS: PETROLAT,WHT/MIN OIL/SOD CHL 3.5 GM OPHT.OINT EACHEYE SCH (21:55)
[2017-08-13] MEDS: LISINOPRIL 10 MG TAB PO SCH (08:51)
[2017-08-13] MEDS: PANTOPRAZOLE SODIUM 40 MG TAB PO SCH (08:54)
[2017-08-13] MEDS: ENOXAPARIN 40 MG/0.4 ML SYR SC SCH (08:55)
--- NOTE | 2017-08-13 14:18 | SOAPPROG ---
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 Initial functional independence measure 60 on 07/28/2017; improved to 72 as of 08/03/2017 , and to 76 as of 08/09/2017. Has ambulated multiple times, 10 - 15 feet with minimal assist of 2 using a right AFO and a 4 wheeled walker. Plan to progress to [place]. Minimal to moderate assistance for transfers. Contact guard to minimal assist for bed mobility. Upper body dressing with minimal assist, lower body dressing with moderate assist, bathing with minimal assist. Decreased sensation on the left noted. 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 Continue PT and OT to optimize his mobility and activities of daily living. * Cognitive impairment. Higher level cognitive activities with Speech and Language Pathology. * Hypertension. Well controlled with lisinopril 30 mg QD, decreased from 40 mg q.day starting 08/03/17, and amlodipine 2.5 make q.day. BMP 07/30/17 with normal renal function; hyperkalemia due to hemolysis. * Hyponatremia. Possibly due to hydrochlorothiazide though he is at a low dose. Labs for SIADH not completely consistent, with elevated uric acid; will also not expect elevated uric acid if the hyponatremia was purely due to a hydrochlorothiazide. Repeat sodium is normal. Will continue off hydrochlorothiazide and watch blood pressure Chronic/stable conditions: * Occasional cough and symptom of postnasal drainage. Improved with fluticasone nasal spray starting 08/03/2017; changed to p.r.n. 08/07/2017 at his request. * Right shoulder pain, improved with topical NSAID. * Secondary stroke prophylaxis will be continued with atorvastatin as well as blood pressure control. * Insomnia. Discontinue lorazepam as it may be contributing to daytime fatigue. Improved with trazodone 50 mg at HS starting 07/29/2017. Trial of acetaminophen at bedtime to reduce discomfort, beginning 08/04/17. * Right eye irritation. He may not keep the eyelid closed at night. Initiated ophthalmic ointment at bedtime and moisturizing eyedrops p.r.n. on 07/27/2017. * Dysphagia. Has met goals regarding swallowing. * History of gastroesophageal reflux disorder. Continue pantoprazole. * Obesity. Will consult dietitian for diet recommendations. * Constipation. He reports he will try prune juice as suggested by nursing. Continue polyethylene glycol q.day on a p.r.n. basis. * Prior cerebrovascular accident seen on magnetic resonance imaging in the right ezio. He will have physical and occupational therapy, and it is hoped that the prior infarction will not impact his rehabilitation. * Possible sleep apnea with history of snoring and crowded airway on exam. He will be assessed for need for oxygen overnight, and he should have a sleep study done after he discharges, to evaluate whether he has sleep apnea and would benefit from interventions. * Risk for deep venous thrombosis was discussed with neurosurgeon, Dr. Haynes, who agrees with prophylactic enoxaparin, started 07/26/17. Right lower extremity edema is resolved 07/27/2017 Plan: 08/12/17 13:15 Subjective: No new complaints Objective: Vital Signs Temp Pulse Resp BP Pulse Ox 36.5 C 75 16 125/76 H 96 08/13/17 08:00 08/13/17 08:00 08/13/17 08:00 08/13/17 08:51 08/13/17 08:00 Laboratory Results 08/12/17 06:25 08/12/17 08/13/17 08/14/17 05:59 05:59 05:59 Intake Total 772 660 360 Output Total 350 Balance 772 310 360 Physical Exam - Physical Exam General Appearance: alert, no apparent distress Respiratory: No respiratory distress Cardiac/Chest: regular rate, rhythm Abdomen: non-tender, soft Neuro/Psych: alert, normal mood/affect, motor weakness (Right higinio paresis) ICD10 Worksheet Patient Problems: Problems Problem Status Onset HTN (hypertension) Acute Hemorrhagic cerebrovascular accident (CVA) Acute Right hemiparesis Acute Shoulder pain, right Acute
[2017-08-13] MEDS: ACETAMINOPHEN 325 MG TAB PO SCH (19:29)
[2017-08-13] MEDS: ATORVASTATIN CALCIUM 20 MG TAB PO SCH (19:29)
[2017-08-13] MEDS: traZODone 50 MG TAB PO SCH (19:30)
[2017-08-13] MEDS: FLUTICASONE NASAL 120 SPRAYS/16 GM MDI EACHNARE PRN (19:59)
[2017-08-13] MEDS: PETROLAT,WHT/MIN OIL/SOD CHL 3.5 GM OPHT.OINT EACHEYE SCH (20:31)
[2017-08-14] MEDS: ENOXAPARIN 40 MG/0.4 ML SYR SC SCH (09:24)
[2017-08-14] MEDS: PANTOPRAZOLE SODIUM 40 MG TAB PO SCH ×2 (09:27→10:20)
[2017-08-14] MEDS: LISINOPRIL 10 MG TAB PO SCH (10:20)
--- NOTE | 2017-08-14 11:40 | SOAPPROG ---
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 Initial functional independence measure 60 on 07/28/2017; improved to 72 as of 08/03/2017 , and to 76 as of 08/09/2017. Has ambulated multiple times, 10 - 15 feet with minimal assist of 2 using a right AFO and a 4 wheeled walker. Plan to progress to [employer]. NEEDS FOCAL STRENGTHENING OF LEFT ILIOPSOAS, GLUT MEDIUS . Minimal to moderate assistance for transfers. Contact guard to minimal assist for bed mobility. Upper body dressing with minimal assist, lower body dressing with moderate assist, bathing with minimal assist. Decreased sensation on the left noted. 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 Continue PT and OT to optimize his mobility and activities of daily living. * Cognitive impairment. Higher level cognitive activities with Speech and Language Pathology. * Hypertension. BP THIS AM 128/72 Well controlled with lisinopril 30 mg QD * Hyponatremia. NA 135 ON Possibly due to hydrochlorothiazide though he is at a low dose. Labs for SIADH not completely consistent, with elevated uric acid; will also not expect elevated uric acid if the hyponatremia was purely due to a hydrochlorothiazide. Repeat sodium is normal. Will continue off hydrochlorothiazide and watch blood pressure Chronic/stable conditions: * Occasional cough and symptom of postnasal drainage. Improved with fluticasone nasal spray starting 08/03/2017; changed to p.r.n. 08/07/2017 at his request. * Right shoulder pain, improved with topical NSAID. * Secondary stroke prophylaxis will be continued with atorvastatin as well as blood pressure control. * Insomnia. Discontinue lorazepam as it may be contributing to daytime fatigue. Improved with trazodone 50 mg at HS starting 07/29/2017. Trial of acetaminophen at bedtime to reduce discomfort, beginning 08/04/17. * Right eye irritation. He may not keep the eyelid closed at night. Initiated ophthalmic ointment at bedtime and moisturizing eyedrops p.r.n. on 07/27/2017. * Dysphagia. Has met goals regarding swallowing. * History of gastroesophageal reflux disorder. Continue pantoprazole. * Obesity. Will consult dietitian for diet recommendations. * Constipation. He reports he will try prune juice as suggested by nursing. Continue polyethylene glycol q.day on a p.r.n. basis. * Prior cerebrovascular accident seen on magnetic resonance imaging in the right ezio. He will have physical and occupational therapy, and it is hoped that the prior infarction will not impact his rehabilitation. * Possible sleep apnea with history of snoring and crowded airway on exam. He will be assessed for need for oxygen overnight, and he should have a sleep study done after he discharges, to evaluate whether he has sleep apnea and would benefit from interventions. * Risk for deep venous thrombosis was discussed with neurosurgeon, Dr. Haynes, who agrees with prophylactic enoxaparin, started 07/26/17. Right lower extremity edema is resolved 07/27/2017 Plan: 08/14/17 11:42 Subjective: FEELS FATIGUED THIS AM. NO C/O SOB, CP OR DIZZINESS Objective: Vital Signs Temp Pulse Resp BP Pulse Ox 36.7 C 82 16 128/72 H 94 08/14/17 08:00 08/14/17 10:20 08/14/17 08:00 08/14/17 10:20 08/14/17 08:00 Laboratory Results 08/12/17 06:25 08/13/17 08/14/17 08/15/17 05:59 05:59 05:59 Intake Total 660 1040 180 Output Total 350 Balance 310 1040 180 Physical Exam - Physical Exam General Appearance: WD/WN, alert, no apparent distress Respiratory: lungs clear Cardiac/Chest: edema (TRACE LE EDEMA) Abdomen: non-tender, soft Extremities: No swelling, No Satinder's sign Neuro/Psych: motor weakness (RIGHT HEMIPARESIS. IS ABLE TO FIRE RIGHT HIP FLEXORS WHILE WALKING, BUT THERE IS SIGNIFICANT WEAKNES WELL GLUT MEDIUS AND TRENDELENBURG IS NOTED) ICD10 Worksheet Patient Problems: Problems Problem Status Onset HTN (hypertension) Acute Hemorrhagic cerebrovascular accident (CVA) Acute Right hemiparesis Acute Shoulder pain, right Acute
[2017-08-14] MEDS: ACETAMINOPHEN 325 MG TAB PO SCH (21:14)
[2017-08-14] MEDS: ATORVASTATIN CALCIUM 20 MG TAB PO SCH (21:14)
[2017-08-14] MEDS: traZODone 50 MG TAB PO SCH (21:15)
[2017-08-14] MEDS: PETROLAT,WHT/MIN OIL/SOD CHL 3.5 GM OPHT.OINT EACHEYE SCH (21:15)
[2017-08-14] MEDS: FLUTICASONE NASAL 120 SPRAYS/16 GM MDI EACHNARE PRN (21:25)
[2017-08-15] MEDS: ACETAMINOPHEN 325 MG TAB PO PRN (04:57)
[2017-08-15] MEDS: ENOXAPARIN 40 MG/0.4 ML SYR SC SCH (09:08)
[2017-08-15] MEDS: PANTOPRAZOLE SODIUM 40 MG TAB PO SCH (09:08)
[2017-08-15] MEDS: LISINOPRIL 10 MG TAB PO SCH (09:08)
--- NOTE | 2017-08-15 11:02 | SOAPPROG ---
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 Initial functional independence measure 60 on 07/28/2017; improved to 72 as of 08/03/2017 , and to 76 as of 08/09/2017. Has ambulated multiple times, 10 - 15 feet with minimal assist of 2 using a right AFO and a 4 wheeled walker. Plan to progress to [employer]. NEEDS FOCAL STRENGTHENING OF LEFT ILIOPSOAS, GLUT MEDIUS . Minimal to moderate assistance for transfers. Contact guard to minimal assist for bed mobility. Upper body dressing with minimal assist, lower body dressing with moderate assist, bathing with minimal assist. Decreased sensation on the left noted. 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 Continue PT and OT to optimize his mobility and activities of daily living. * Cognitive impairment. Higher level cognitive activities with Speech and Language Pathology. * Hypertension. BP THIS AM 138/83 Well controlled with lisinopril 30 mg QD * MILD LEFT SHOULDER SUBLUXATION- MONITOR FOR INCREASED PAIN. CONSIDER FES TO ROT CUFF MUSCLES * Hyponatremia. NA 135 ON 08/12 Possibly due to hydrochlorothiazide though he is at a low dose. Labs for SIADH not completely consistent, with elevated uric acid; will also not expect elevated uric acid if the hyponatremia was purely due to a hydrochlorothiazide. Repeat sodium is normal. Will continue off hydrochlorothiazide and watch blood pressure Chronic/stable conditions: * Occasional cough and symptom of postnasal drainage. Improved with fluticasone nasal spray starting 08/03/2017; changed to p.r.n. 08/07/2017 at his request. * Right shoulder pain, improved with topical NSAID. * Secondary stroke prophylaxis will be continued with atorvastatin as well as blood pressure control. * Insomnia. Discontinue lorazepam as it may be contributing to daytime fatigue. Improved with trazodone 50 mg at HS starting 07/29/2017. Trial of acetaminophen at bedtime to reduce discomfort, beginning 08/04/17. * Right eye irritation. He may not keep the eyelid closed at night. Initiated ophthalmic ointment at bedtime and moisturizing eyedrops p.r.n. on 07/27/2017. * Dysphagia. Has met goals regarding swallowing. * History of gastroesophageal reflux disorder. Continue pantoprazole. * Obesity. Will consult dietitian for diet recommendations. * Constipation. He reports he will try prune juice as suggested by nursing. Continue polyethylene glycol q.day on a p.r.n. basis. * Prior cerebrovascular accident seen on magnetic resonance imaging in the right ezio. He will have physical and occupational therapy, and it is hoped that the prior infarction will not impact his rehabilitation. * Possible sleep apnea with history of snoring and crowded airway on exam. He will be assessed for need for oxygen overnight, and he should have a sleep study done after he discharges, to evaluate whether he has sleep apnea and would benefit from interventions. * Risk for deep venous thrombosis was discussed with neurosurgeon, Dr. Haynes, who agrees with prophylactic enoxaparin, started 07/26/17. Right lower extremity edema is resolved 07/27/2017 Plan: 08/14/17 11:42 08/15/17 11:00 Subjective: NO C/O THIS AM Objective: Vital Signs Temp Pulse Resp BP Pulse Ox 36.4 C 82 16 138/83 H 94 08/15/17 07:20 08/15/17 07:20 08/15/17 07:20 08/15/17 07:20 08/15/17 07:20 Laboratory Results 08/12/17 06:25 08/14/17 08/15/17 08/16/17 05:59 05:59 05:59 Intake Total 1040 1140 200 Balance 1040 1140 200 Physical Exam - Physical Exam General Appearance: WD/WN, alert, no apparent distress Neck: non-tender Respiratory: chest non-tender, lungs clear Cardiac/Chest: edema (RIGHT HAND EDEMA) Abdomen: non-tender, soft Extremities: No swelling, No Satinder's sign (MILD RIGHT SHOULDER SUBLUXATION) ICD10 Worksheet Patient Problems: Problems Problem Status Onset HTN (hypertension) Acute Hemorrhagic cerebrovascular accident (CVA) Acute Right hemiparesis Acute Shoulder pain, right Acute
[2017-08-15] MEDS: ACETAMINOPHEN 325 MG TAB PO SCH (20:19)
[2017-08-15] MEDS: traZODone 50 MG TAB PO SCH (20:19)
[2017-08-15] MEDS: ATORVASTATIN CALCIUM 20 MG TAB PO SCH (20:19)
[2017-08-15] MEDS: FLUTICASONE NASAL 120 SPRAYS/16 GM MDI EACHNARE PRN (20:49)
[2017-08-15] MEDS: PETROLAT,WHT/MIN OIL/SOD CHL 3.5 GM OPHT.OINT EACHEYE SCH (22:08)
[2017-08-16] MEDS: LISINOPRIL 10 MG TAB PO SCH (08:01)
[2017-08-16] MEDS: PANTOPRAZOLE SODIUM 40 MG TAB PO SCH (08:01)
[2017-08-16] MEDS: ENOXAPARIN 40 MG/0.4 ML SYR SC SCH (08:01)
[2017-08-16] MEDS: TROLAMINE SALICYLATE 85 GM CRTUBE TP PRN (08:06)
--- NOTE | 2017-08-16 15:39 | SOAPPROG ---
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 Initial functional independence measure 60 on 07/28/2017; improved to 72 as of 08/03/2017 , and to 76 as of 08/09/2017. Has ambulated multiple times, 10 - 15 feet with minimal assist of 2 using a right AFO and a 4 wheeled walker. Plan to progress to [employer]. Now ambulating on like a device as far as 400 feet with body weight partially supported and with assistance by therapists for movement of the right leg. Minimal to moderate assistance for transfers. Contact guard to minimal assist for bed mobility. Upper body dressing with minimal assist, lower body dressing with moderate assist, bathing with minimal assist. Decreased sensation on the left noted. 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 Continue PT and OT to optimize his mobility and activities of daily living. * Cognitive impairment. Higher level cognitive activities with Speech and Language Pathology. * Hypertension. Well controlled with lisinopril 30 mg QD, decreased from 40 mg q.day starting 08/03/17, and amlodipine 2.5 make q.day. BMP 07/30/17 with normal renal function; hyperkalemia due to hemolysis. Chronic/stable conditions: * Hyponatremia. Resolved. Possibly due to hydrochlorothiazide though he is at a low dose. Labs for SIADH not completely consistent, with elevated uric acid; will also not expect elevated uric acid if the hyponatremia was purely due to a hydrochlorothiazide. Normal on BMP 08/12/2017 now that he is off hydrochlorothiazide. * Occasional cough and symptom of postnasal drainage. Improved with fluticasone nasal spray starting 08/03/2017; changed to p.r.n. 08/07/2017 at his request. * Right shoulder pain, improved with topical NSAID. * Secondary stroke prophylaxis will be continued with atorvastatin as well as blood pressure control. * Insomnia. Discontinue lorazepam as it may be contributing to daytime fatigue. Improved with trazodone 50 mg at HS starting 07/29/2017. Trial of acetaminophen at bedtime to reduce discomfort, beginning g1. * Right eye irritation. He may not keep the eyelid closed at night. Initiated ophthalmic ointment at bedtime and moisturizing eyedrops p.r.n. on 07/27/2017. * Dysphagia. Has met goals regarding swallowing. * History of gastroesophageal reflux disorder. Continue pantoprazole. * Obesity. Will consult dietitian for diet recommendations. * Constipation. He reports he will try prune juice as suggested by nursing. Continue polyethylene glycol q.day on a p.r.n. basis. * Prior cerebrovascular accident seen on magnetic resonance imaging in the right ezio. He will have physical and occupational therapy, and it is hoped that the prior infarction will not impact his rehabilitation. * Possible sleep apnea with history of snoring and crowded airway on exam. He will be assessed for need for oxygen overnight, and he should have a sleep study done after he discharges, to evaluate whether he has sleep apnea and would benefit from interventions. * Risk for deep venous thrombosis was discussed with neurosurgeon, Dr. Haynes, who agrees with prophylactic enoxaparin, started 07/26/17. Right lower extremity edema is resolved 07/27/2017 Continuing to make slow progress. Continue tentative discharge date of 2016. FOLLOWUP: He is to follow up with primary care provider, Dr. Gema Greene, after discharge. 08/16/17 15:37 Subjective: No complaints. Happy about ambulating in the light gait device. Objective: Vital Signs Temp Pulse Resp BP Pulse Ox 36.8 C 77 14 110/62 95 08/16/17 07:58 08/16/17 07:58 08/16/17 07:58 08/16/17 08:00 08/16/17 07:58 Laboratory Results 08/12/17 06:25 08/15/17 08/16/17 08/17/17 05:59 05:59 05:59 Intake Total 1140 500 120 Balance 1140 500 120 Physical Exam - Physical Exam General Appearance: WD/WN, alert, no apparent distress Respiratory: normal breath sounds, No crackles, No rhonchi, No wheezing Cardiac/Chest: regular rate, rhythm, No edema, No diastolic murmur, No systolic murmur Skin: normal color, warm/dry Neuro/Psych: alert, normal mood/affect, oriented x 3, motor weakness (Left upper extremity with movement at the shoulder, minimal movement at the elbow. A holds wrist extension against gravity, no movement of fingers.) ICD10 Worksheet Patient Problems: Problems Problem Status Onset HTN (hypertension) Acute Hemorrhagic cerebrovascular accident (CVA) Acute Right hemiparesis Acute Shoulder pain, right Acute - ICD10 Problem Qualifiers (1) Hemorrhagic cerebrovascular accident (CVA) (2) Right hemiparesis (3) HTN (hypertension)
[2017-08-16] MEDS: ACETAMINOPHEN 325 MG TAB PO SCH (20:06)
[2017-08-16] MEDS: ATORVASTATIN CALCIUM 20 MG TAB PO SCH (20:06)
[2017-08-16] MEDS: traZODone 50 MG TAB PO SCH (20:06)
[2017-08-16] MEDS: FLUTICASONE NASAL 120 SPRAYS/16 GM MDI EACHNARE PRN (20:11)
[2017-08-16] MEDS: PETROLAT,WHT/MIN OIL/SOD CHL 3.5 GM OPHT.OINT EACHEYE SCH (20:13)
[2017-08-17] MEDS: ACETAMINOPHEN 325 MG TAB PO PRN (02:35)
[2017-08-17] MEDS: LISINOPRIL 10 MG TAB PO SCH (09:24)
[2017-08-17] MEDS: ENOXAPARIN 40 MG/0.4 ML SYR SC SCH (09:26)
[2017-08-17] MEDS: PANTOPRAZOLE SODIUM 40 MG TAB PO SCH (09:26)
[2017-08-17] MEDS: TROLAMINE SALICYLATE 85 GM CRTUBE TP PRN (09:26)
--- NOTE | 2017-08-17 12:12 | SOAPPROG ---
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 Initial functional independence measure 60 on 07/28/2017; improved to 72 as of 08/03/2017 , to 76 as of 08/09/2017, and to 82 as of 08/17/2017. Bed mobility is standby assist to independent, transfers contact guard assist to minimal assist. Ambulated 15 feet with quad cane and 2 person assist, also using light gait. Has return of movement to the right upper extremity except for finger extension. Upper body dressing is done with standby and cues, lower body dressing requires some assistance to minute maintain a cross-legged position for right AFO and shoe. Bathing requires minimal assistance best transfer contact guard to minimal assistance. Decreased sensation on the left noted. 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 Continue PT and OT to optimize his mobility and activities of daily living. * Cognitive impairment. Higher level cognitive activities with Speech and Language Pathology: Detected reasoning and cognitive endurance. * Hypertension. Well controlled with lisinopril 30 mg QD, decreased from 40 mg q.day starting 08/03/17, and amlodipine 2.5 make q.day. [facility] 07/30/17 with normal renal function; hyperkalemia due to hemolysis. Chronic/stable conditions: * Hyponatremia. Resolved. Possibly due to hydrochlorothiazide though he is at a low dose. Labs for SIADH not completely consistent, with elevated uric acid; will also not expect elevated uric acid if the hyponatremia was purely due to a hydrochlorothiazide. Normal on [facility] 08/12/2017 now that he is off hydrochlorothiazide. * Occasional cough and symptom of postnasal drainage. Improved with fluticasone nasal spray starting 08/03/2017; changed to p.r.n. 08/07/2017 at his request. * Right shoulder pain, improved with topical NSAID and p.r.n. acetaminophen. * Secondary stroke prophylaxis will be continued with atorvastatin as well as blood pressure control. * Insomnia. Discontinue lorazepam as it may be contributing to daytime fatigue. Improved with trazodone 50 mg at HS starting 07/29/2017. Trial of acetaminophen at bedtime to reduce discomfort, beginning 08/04/17. * Right eye irritation. He may not keep the eyelid closed at night. Initiated ophthalmic ointment at bedtime and moisturizing eyedrops p.r.n. on 07/27/2017. * Dysphagia. Has met goals regarding swallowing. * History of gastroesophageal reflux disorder. Continue pantoprazole. * Obesity. Will consult dietitian for diet recommendations. * Constipation. He reports he will try prune juice as suggested by nursing. Continue polyethylene glycol q.day on a p.r.n. basis. * Prior cerebrovascular accident seen on magnetic resonance imaging in the right ezio. He will have physical and occupational therapy, and it is hoped that the prior infarction will not impact his rehabilitation. * Possible sleep apnea with history of snoring and crowded airway on exam. He will be assessed for need for oxygen overnight, and he should have a sleep study done after he discharges, to evaluate whether he has sleep apnea and would benefit from interventions. * Risk for deep venous thrombosis was discussed with neurosurgeon, Dr. Haynes, who agrees with prophylactic enoxaparin, started 07/26/17. Right lower extremity edema is resolved 07/27/2017 Attendant staffing, 15 minutes. Discussed with case management, pharmacy, nursing, PT, OT, PLASTIC MACHINE OPERATOR. Attended family meeting, 30 minutes, and [facility] case manager present. Goal of supervision or assistance level at home. Likely to use wheelchair for community distances but hope that he can ambulate with assistance of his for household distances. Will need a ramp from the garage and will need a railing on the right side of steps to upstairs. Has a half bath on the main level where he can live initially. Discharge date set for 09/01/2017. Will have home PT with goal to be able to use the stairs. Will have outpatient OT. FOLLOWUP: He is to follow up with primary care provider, Dr. Gema Greene, after discharge. 08/17/17 15:02 Subjective: No complaints. Had some neck and shoulder pain overnight. Thinks he waited too long to ask for up Tylenol. He really attain sleep after taking the Tylenol. No cough, dyspnea, fevers, chills. Objective: Vital Signs Temp Pulse Resp BP Pulse Ox 36.6 C 75 75 H 138/78 H 95 08/17/17 08:00 08/17/17 08:00 08/17/17 08:00 08/17/17 09:24 08/17/17 08:00 Laboratory Results 08/12/17 06:25 08/16/17 08/17/17 08/18/17 05:59 05:59 05:59 Intake Total 500 540 236 Balance 500 540 236 - Time Spent With Patient Time Spent With Patient: Greater than 35 minutes floor time today, including more than 50% of time in coordination of care during staffing meeting, and counseling patient and during family meeting. Physical Exam - Physical Exam General Appearance: WD/WN, alert, no apparent distress Respiratory: No respiratory distress, No accessory muscle use Skin: normal color, warm/dry Neuro/Psych: alert, normal mood/affect, oriented x 3, motor weakness (Right upper and lower extremities. Self propelling wheelchair in the ricks using left lower extremity.) ICD10 Worksheet Patient Problems: Problems Problem Status Onset HTN (hypertension) Acute Hemorrhagic cerebrovascular accident (CVA) Acute Right hemiparesis Acute Shoulder pain, right Acute - ICD10 Problem Qualifiers (1) Hemorrhagic cerebrovascular accident (CVA) (2) Right hemiparesis (3) HTN (hypertension)
[2017-08-17 20:04] VITALS: PULSE 120; RESP 18; O2SAT 99
[2017-08-17 20:14] VITALS: TEMP 97.7
[2017-08-17 20:15] VITALS: BP 170/100
[2017-08-17] MEDS: traZODone 50 MG TAB PO SCH (22:48)
[2017-08-17] MEDS: PETROLAT,WHT/MIN OIL/SOD CHL 3.5 GM OPHT.OINT EACHEYE SCH (22:50)
[2017-08-17] MEDS: ATORVASTATIN CALCIUM 20 MG TAB PO SCH (22:50)
[2017-08-17] MEDS: ACETAMINOPHEN 325 MG TAB PO SCH (22:51)
--- NOTE | 2017-08-19 13:31 | PDOREHIP ---
Admission [facility] - Admission - 3 Day Assessment Period Admission Date/Day 1: 07/26/17 Day 2: 07/27/17 Day 3: 07/28/17 Discharge [facility] - Discharge - 3 Day Assessment Period 2 Days Prior to Anticipated Discharge Date: 08/23/17 1 Day Prior to Anticipated Discharge Date: 08/24/17 Anticipated Discharge Date: 08/25/17 - Discharge Skin Conditions Unhealed Pressure Ulcer (1 or more/Stage 1 or >)-Discharge: 0. No
== END 2017-08-17 20:10 | disposition still patient (30) | DRG 57 ==
LOC: BREH 07-26 14:47
PROVIDERS: ADMIT Internal Medicine; ATTEND Internal Medicine
PROC: F0636ZZ Communicative/Cognitive Integration Skills Treatment of Neurological System - Whole Body (ICD-10-PCS; principal; 2017-07-26)
PROC: F07M3ZZ Motor Function Treatment of Musculoskeletal System - Whole Body (ICD-10-PCS; principal; 2017-07-26)
PROC: F08Z7ZZ Vocational Activities and Functional Community or Work Reintegration Skills Treatment (ICD-10-PCS; principal; 2017-07-26)
DX: I69.11 Cognitive deficits following nontraumatic intracerebral hemorrhage (principal); I69.191 Dysphagia following nontraumatic intracerebral hemorrhage; I10 Essential (primary) hypertension; R06.83 Snoring; R60.0 Localized edema; K21.9 Gastro-esophageal reflux disease without esophagitis; E78.5 Hyperlipidemia, unspecified; E66.09 Other obesity due to excess calories; Z68.33 Body mass index [BMI] 33.0-33.9, adult; Z86.73 Personal history of transient ischemic attack (TIA), and cerebral infarction without residual deficits; Z87.891 Personal history of nicotine dependence
CPT/HCPCS: 92507-GN; 92522-GN; 92526-GN; 92610-GN; 97110-GO; 97112-GO; 97112-GP; 97116-GP; 97161-GP; 97166-GO; 97530-GO; 97530-GP; 97532-GO; 97535-GO; 99366-GO; J1650

== ENCOUNTER 2017-08-17 20:32 | Observation (INO) | payer OTHER ==
--- NOTE | 2017-08-17 20:57 | EDPHY ---
H & P Time Seen by Provider: 08/17/17 20:37 HPI/ROS: Chief complaint. Right-sided paresthesia HPI. 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 He has residual right higinio paresis. He has been in rehab. Tonight at rehab he felt tingling or numbness to the right arm which preceded his CVA in July. They checked his blood pressure and found his blood pressure to be high. He does have a history of hypertension is been receiving antihypertensive therapy. He does not think he has new right arm or right leg weakness though he does have residual higinio paresis. He does not have any chest discomfort or trouble breathing. No abdominal pain. He does have slight headache. No change in vision. ROS Constitutional. no fever/chills, no weakness Eyes. no problems with vision ENT. no sore throat, no nasal drainage Cardiovascular. no chest pain Respiratory. no shortness of breath, no cough Abdominal. no abdominal pain, no nausea/vomiting, no diarrhea . no problems urinating MS. no calf pain/swelling, no neck/back pain, no joint pain Skin. no rash Lymph. no swollen glands Neuro. Headache. Right arm and leg higinio paresis Past Medical/Surgical History: Hypertension, dyslipidemia Social History: , nonsmoker, no alcohol Smoking Status: Former smoker Physical Exam: General Appearance: Alert, no distress. Eyes: Pupils equal and round no pallor or injection. ENT, Mouth: Mucous membranes are moist. Respiratory: There are no retractions, lungs are clear to auscultation. Cardiovascular: Regular rate and rhythm. Gastrointestinal: Abdomen is soft and nontender, no masses, bowel sounds normal. Neurological: Awake and alert, speech is normal. Cranial nerves intact. Right side arm and leg higinio paresis. Left side normal Skin: Warm and dry, no rashes. Musculoskeletal: Neck is supple nontender. Extremities symmetrical, full range of motion. Psychiatric: Patient is oriented X 3, there is no agitation. Constitutional: Initial Vital Signs Temperature (C) 36.9 C 08/17/17 20:53 Heart Rate 96 08/17/17 20:53 Respiratory Rate 16 08/17/17 20:53 Blood Pressure 170/118 H 08/17/17 20:53 O2 Sat (%) 98 08/17/17 20:53 O2 Delivery Mode Nasal Cannula O2 (L/minute) 2 Allergies/Adverse Reactions: No Known Allergies Allergy (Unverified 07/26/17 14:39) Home Medications: Medication Instructions Recorded Atorvastatin Calcium 20 mg PO HS 07/26/17 LORazepam [Ativan (*)] 0.5 mg PO Q8 PRN 07/26/17 Labetalol HCl [Trandate 100 mg (*)] 100 mg PO BID 07/26/17 Lisinopril [Zestril 40 mg (*)] 40 mg PO DAILY 07/26/17 Melatonin [Melatonin 3 MG (*)] 3 mg PO HS PRN 07/26/17 Omeprazole [Prilosec 20 mg] 20 mg PO DAILY 07/26/17 Medical Decision Making - Diagnostics Imaging Results: Head CT noncontrast reviewed by me and discussed with Dr. Haney shows no evidence of it acute intracranial hemorrhage. Residual findings of the thalamus and basal ganglia from his previous hemorrhagic CVA Procedures: IV normal saline. Nicardipine drip. Indication was blood pressure 172/127. Blood pressure comes down to 130/82. The nicardipine drip is turned off. 10:40 p.m. and current blood pressure is 149/93 I consulted and discussed case with [facility] who recommends noncontrast head CT and blood pressure control. 10:45 p.m. patient is stable. The patient, his , and I discussed imaging study results, treatment plan including recommendation for admission tonight for blood pressure control. They expressed understanding and agreement I consulted and discussed the case with Dr. Parikh, hospitalist, who agrees to the admission. ED Course/Re-evaluation: Patient remained stable Differential Diagnosis: I considered intracranial hemorrhage, CVA, malignant hypertension. I believe likely the symptoms were because of his markedly elevated blood pressure. Critical Care Time: Critical care time exclusive procedures 40 minutes - Data Points Laboratory Results: Laboratory Results 08/17/17 20:35 08/17/17 20:35 08/17/17 08/17/17 08/17/17 20:35 20:35 20:30 WBC 7.51 10^3/uL 10^3/uL (3.80-9.50) RBC 4.59 10^6/uL 10^6/uL (4.40-6.38) Hgb 14.6 g/dL g/dL (13.7-17.5) Hct 40.8 % % (40.0-51.0) MCV 88.9 fL fL (81.5-99.8) MCH 31.8 pg pg (27.9-34.1) MCHC 35.8 g/dL g/dL (32.4-36.7) RDW 13.3 % % (11.5-15.2) Plt Count 191 10^3/uL 10^3/uL (150-400) MPV 11.6 fL fL (8.7-11.7) Neut % (Auto) 65.6 % % (39.3-74.2) Lymph % (Auto) 23.8 % % (15.0-45.0) [place] % (Auto) 8.8 % % (4.5-13.0) Eos % (Auto) 0.9 % % (0.6-7.6) Baso % (Auto) 0.5 % % (0.3-1.7) Nucleat RBC Rel Count 0.0 % % (0.0-0.2) Absolute Neuts (auto) 4.92 10^3/uL 10^3/uL (1.70-6.50) Absolute Lymphs (auto) 1.79 10^3/uL 10^3/uL (1.00-3.00) Absolute Monos (auto) 0.66 10^3/uL 10^3/uL (0.30-0.80) Absolute Eos (auto) 0.07 10^3/uL 10^3/uL (0.03-0.40) Absolute Basos (auto) 0.04 10^3/uL 10^3/uL (0.02-0.10) Absolute Nucleated RBC 0.00 10^3/uL 10^3/uL (0-0.01) Immature Gran % 0.4 % % (0.0-1.1) Immature Gran # 0.03 10^3/uL 10^3/uL (0.00-0.10) PT 13.6 SEC SEC (12.0-15.0) INR 1.05 (0.83-1.16) APTT 28.2 SEC SEC (23.0-38.0) Sodium 134 mEq/L mEq/L (134-144) Potassium 3.9 mEq/L mEq/L (3.5-5.2) Chloride 101 mEq/L mEq/L (97-110) Carbon Dioxide 23 mEq/l mEq/l (22-31) Anion Gap 10 mEq/L mEq/L (8-16) BUN 15 mg/dL mg/dL (7-23) Creatinine 0.9 mg/dL mg/dL (0.7-1.3) Estimated GFR > 60 Glucose 114 mg/dL H mg/dL (70-100) Calcium 9.6 mg/dL mg/dL (8.5-10.4) Medications Given: Nicardipine/Sodium Chloride (Cardene 0.1 Mg/Ml (Premix)) 200 mls @ 0 mls/hr IV CONT TOMAS; Titrate PRN Reason: Protocol Stop: 02/13/18 21:29 Last Admin: 08/17/17 21:24 Dose: 200 mls Discontinued Medications Sodium Chloride (Ns) 1,000 mls @ 0 mls/hr IV EDNOW ONE; Wide Open PRN Reason: Protocol Stop: 08/17/17 21:08 Last Admin: 08/17/17 21:29 Dose: 1,000 mls Departure - Departure Disposition: [facility] Inpatient Acute Clinical Impression: Hypertensive urgency, Arm paresthesia, right Condition: Fair Referrals: PING GUZMAN [Other] - As per Instructions
[2017-08-17] MEDS ORDERED: NS 1,000 ML IV ONE (21:07)
[2017-08-17 21:18] LABS: % IMMATURE GRANULYOCYTES 0.4 % (0.0-1.1); ABSOLUTE IMMATURE GRANULOCYTES 0.03 10^3/uL (0.00-0.10); ADD DIFF? NO; ADD MORPH? NO; ADD SCAN? NO; ATYPICAL LYMPHOCYTE FLAG 10 (0-99); FRAGMENT RBC FLAG 0 (0-99); HEMATOCRIT 40.8 % (40.0-51.0); HEMOGLOBIN 14.6 g/dL (13.7-17.5); LEFT SHIFT FLG 0 (0-99); LIPEMIA HEMOLYSIS FLAG 90 (0-99); MEAN CELL HEMOGLOBIN 31.8 pg (27.9-34.1); MEAN CELL HEMOGLOBIN CONCENTR. 35.8 g/dL (32.4-36.7); MEAN CELL VOLUME 88.9 fL (81.5-99.8); MEAN PLATELET VOLUME 11.6 fL (8.7-11.7); PLATELET CLUMPS FLAG 0 (0-99); PLATELET COUNT 191 10^3/uL (150-400); RED BLOOD CELL COUNT 4.59 10^6/uL (4.40-6.38); RED CELL DISTRIBUTION WIDTH 13.3 % (11.5-15.2)
--- NOTE | 2017-08-17 21:22 | CPEKG ---
Heart Rate: 90 RR Interval: 667 P-R Interval: 180 QRSD Interval: 156 QT Interval: 400 QTC Interval: 490 P [place]: 46 QRS [place]: 52 T Wave [place]amping [place]: -5 EKG Severity - ABNORMAL ECG - EKG Impression: SINUS RHYTHM EKG Impression: RIGHT BUNDLE BRANCH BLOCK Electronically Signed By: Chao Antoine 17-Aug-2017 23:14:57
[2017-08-17 21:25] LABS: ANION GAP 10 mEq/L (8-16); CALCIUM 9.6 mg/dL (8.5-10.4); CARBON DIOXIDE 23 mEq/l (22-31); CHLORIDE 101 mEq/L (97-110); CREATININE 0.9 mg/dL (0.7-1.3); GLOMERULAR FILTRATION RATE > 60; GLUCOSE 114 mg/dL (70-100); POTASSIUM 3.9 mEq/L (3.5-5.2); SODIUM 134 mEq/L (134-144)
[2017-08-17] MEDS ORDERED: LORazepam 1 MG TAB PO ONE (21:26)
[2017-08-17] MEDS ORDERED: niCARdipine/NACL 200 ML IV SCH (21:30)
[2017-08-17 21:47] LABS: INR 1.05 (0.83-1.16); PROTIME(PATIENT) 13.6 SEC (12.0-15.0)
[2017-08-17 21:48] LABS: APTT 28.2 SEC (23.0-38.0)
[2017-08-17] MEDS ORDERED: ONDANSETRON 4 MG/2 ML VIAL IVP PRN (22:55)
[2017-08-17] MEDS ORDERED: diphenhydrAMINE 25 MG CAP PO PRN (22:55)
[2017-08-17] MEDS ORDERED: LORazepam 0.5 MG TAB PO PRN (22:55)
[2017-08-17] MEDS ORDERED: HYDROCODONE/APAP 5/325 TAB PO PRN (22:55)
[2017-08-17] MEDS ORDERED: ACETAMINOPHEN 325 MG TAB PO PRN (22:55)
[2017-08-18] MEDS ORDERED: hydrALAZINE 20 MG/ML VIAL IVP PRN (03:12)
[2017-08-18 04:45] LABS: % IMMATURE GRANULYOCYTES 0.3 % (0.0-1.1); ABSOLUTE IMMATURE GRANULOCYTES 0.02 10^3/uL (0.00-0.10); ADD DIFF? NO; ADD MORPH? NO; ADD SCAN? NO; ATYPICAL LYMPHOCYTE FLAG 10 (0-99); FRAGMENT RBC FLAG 0 (0-99); HEMATOCRIT 37.5 % (40.0-51.0); HEMOGLOBIN 12.9 g/dL (13.7-17.5); LEFT SHIFT FLG 0 (0-99); LIPEMIA HEMOLYSIS FLAG 90 (0-99); MEAN CELL HEMOGLOBIN 31.1 pg (27.9-34.1); MEAN CELL HEMOGLOBIN CONCENTR. 34.4 g/dL (32.4-36.7); MEAN CELL VOLUME 90.4 fL (81.5-99.8); MEAN PLATELET VOLUME 11.3 fL (8.7-11.7); PLATELET CLUMPS FLAG 0 (0-99); PLATELET COUNT 182 10^3/uL (150-400); RED BLOOD CELL COUNT 4.15 10^6/uL (4.40-6.38); RED CELL DISTRIBUTION WIDTH 13.4 % (11.5-15.2)
[2017-08-18 05:08] LABS: ANION GAP 9 mEq/L (8-16); CALCIUM 8.9 mg/dL (8.5-10.4); CARBON DIOXIDE 23 mEq/l (22-31); CHLORIDE 106 mEq/L (97-110); CREATININE 0.9 mg/dL (0.7-1.3); GLOMERULAR FILTRATION RATE > 60; GLUCOSE 93 mg/dL (70-100); MAGNESIUM 1.9 mg/dL (1.6-2.3); POTASSIUM 3.9 mEq/L (3.5-5.2); SODIUM 138 mEq/L (134-144)
--- NOTE | 2017-08-18 05:13 | GHP ---
[f rep st] HISTORY AND PHYSICAL DATE OF ADMISSION: 08/17/2017 DATE OF SERVICE: 08/18/2017 SOURCE: Patient provides history, appears reliable. His electronic medical record was reviewed, and case discussed with ED provider prior to arrival on the floor. CHIEF COMPLAINT: Headache and right arm paresthesias. HISTORY OF PRESENT ILLNESS: This is a very pleasant 61-year-old gentleman with recent history of a hemorrhagic CVA on July 19, with resultant right hemiparesis, who presents to the emergency department today from acute rehab center with complaints of headache and right arm paresthesias. Patient was noted to have significantly elevated blood pressures to 178/118, increased to 172/127. He was transferred to the emergency department for further evaluation in the emergency department. The patient underwent an emergency CT head that did not show any acute bleeding, rather evolving old area of hemorrhage and vasogenic edema. The patient was placed on a Cardene drip with rapid improvement of his blood pressures. The patient's blood pressure did decrease down to 135/82, and the drip was subsequently discontinued. The patient has been receiving labetalol 100 mg p.o. twice daily as well as lisinopril 40 mg p.o. daily with intermittent elevations in blood pressure. He denies any chest pain, palpitations, or shortness of breath. At time of interview, patient is reporting resolution of his headache and right-sided paresthesias. He has persistent right-sided weakness and fine motor deficits, but reports he is at baseline prior to development of symptoms this afternoon. REVIEW OF SYSTEMS: GENERAL: Patient denies any fevers, chills. SKIN: No new rashes or sores. ENT: No congestion, sore throat. CV: No chest pain, palpitations. RESPIRATORY: No shortness of breath, cough. GI: No nausea, vomiting, abdominal pain. Remainder ROS negative except as noted above. Remainder of review of systems negative, except as noted above in HPI. ALLERGIES: No known drug allergies. HOME MEDICATIONS: Omeprazole 20 mg p.o. daily, melatonin 2 mg p.o. at bedtime p.r.n., lisinopril 40 mg p.o. daily, labetalol 100 mg p.o. twice daily, lorazepam 0.5 mg p.o. q.8 hours p.r.n., atorvastatin 20 mg p.o. at bedtime. PAST MEDICAL HISTORY: Significant for: 1. Hemorrhagic CVA with resultant right hemiparesis on 07/19/2017. 2. Hypertension. 3. Hyperlipidemia. 4. Chronic shoulder pain. 5. GERD. 6. Anxiety. 7. Insomnia. PAST SURGICAL HISTORY: Patient denies. FAMILY HISTORY: Maternal grandfather with history of CVA at advanced age in his 80s, as well as diabetes type 2. Otherwise, remainder of family members are healthy. SOCIAL HISTORY: Patient is , currently admitted to acute rehab. He does not smoke, drink, or do drugs. He reports a remote history of tobacco abuse. CODE STATUS: Full. Patient without advance directives. Desires his , Kortney Villalpando, to act as proxy if needed. PHYSICAL EXAMINATION: VITAL SIGNS: On admission, temperature 36.9, blood pressure is 170/118, heart rate is 96, respiratory rate 16, O2 saturation 98% on 2 L by nasal cannula. Vitals at time of interview available: Blood pressure 146/90, heart rate 91, respiratory rate 20, O2 saturation 99% on 2 L by nasal cannula, and temperature 36.5. GENERAL: No acute distress, very pleasant, adult male, who is resting quietly on bed asleep, but wakes easily to his name. HEAD: Normocephalic, atraumatic. EYES: Extraocular muscles are intact. Pupils equal, round, reactive to light bilaterally, and symmetric. The patient does close his eyes to exposure to light. No scleral icterus or conjunctival injection. ENT: Mucous membranes appear moist. No oropharyngeal erythema. Dentition intact. Neck supple. Trachea midline. CV: Regular rate and rhythm. No murmurs, rubs, or gallops appreciated. RESPIRATORY: Unlabored breathing. Lungs are clear to auscultation bilaterally. No wheezes, rales, or rhonchi. ABDOMEN: Positive bowel sounds, soft, nontender to palpation. No rebound, guarding, or masses appreciated. : No [place] in place. No suprapubic tenderness to palpation. EXTREMITIES: Patient without any cyanosis , clubbing, or edema appreciated. Patient with 1+ pedal pulses bilaterally. NEUROLOGIC: Cranial nerves grossly nonfocal. No facial drooping. Patient awake, alert, and oriented x3. The patient does have some right-sided distal extremity weakness, but able to raise his arm above gravity as well as his lower extremity. Patient with deficits in the distal lower extremity, but able to lift his leg. PSYCH: Patient is pleasant. Thought process, content, and questions appropriate. LABORATORY STUDIES: WBC 7.51, H and H are 14.6 and 40.8, MCV of 88.9, and platelet count is 191. No bandemia. PT is 13.6, INR is 1.05, PTT is 28.2. Sodium is 133, potassium is 3.9, chloride 101, CO2 is 23, anion gap 10, BUN is 15, creatinine 0.9, GFR greater than 60, glucose 114, calcium 9.6. EKG reviewed myself. Normal sinus rhythm in the 90s with a right bundle branch block. No acute ST changes. QTc is 490. CT head: Report reviewed, showing evolving deep left parenchymal hemispheric hemorrhage with encephalomalacia and mild vasogenic edema within the left basal ganglia in the site of the prior parenchymal hemorrhage. No new areas of hemorrhage identified. No evidence of mass or mass effect, or midline shift. No features of acute cortical ischemia noted. ASSESSMENT AND PLAN: Pleasant 61-year-old gentleman, who presents with elevated blood pressures and right-sided paresthesias. 1. Hypertensive urgency. The patient's blood pressures rapidly responded to Cardene drip which was discontinued. He has not required any p.r.n.'s at this time, but hydralazine will be made available for blood pressures greater than 160/90. We will resume patient's lisinopril and labetalol in the morning. Consider p.r.n. p.o. hydralazine after discharge back to rehab. 2. Right-sided paresthesias. These have resolved. CT head without any evidence of acute new ischemia. Neurology was consulted from the emergency department without further recommendations for additional imaging, and recommended improved blood pressure control. The patient's symptoms have resolved. 3. Headache, resolved, with blood pressure control. 4. Hyperlipidemia. Resume statin at discharge. 5. Gastroesophageal reflux disease. Resume PPI. 6. Insomnia. Ativan available p.r.n. Trazodone resume after discharge. 7. Fluid, electrolytes, and nutrition. Some gentle hydration with IV fluid. Electrolyte replacement p.r.n. Nutrition and diet as tolerated. Cardiac diet, low salt. 8. Prophylaxis. SCDs. Holding anticoagulation in the setting of history of a CVA bleed. 9. Cor status is full. Patient desires his , Kortney Villalpando, to act as proxy as needed. DISPOSITION: Patient admitted to observation on PCU for close monitoring of blood pressures and assessment of neurologic function. /[id number]/MODL MTDD
[2017-08-18 05:19] LABS: TROPONIN I 0.016 ng/mL (0.000-0.034)
--- NOTE | 2017-08-18 08:37 | HOSPPROG ---
Hospitalist Progress Note Assessment/Plan: #Hypertensive urgency: appears to be related to upsetting phone call -spoke with Dr. Douglas at rehab who recently reduced SABRINA to 30mg for low BP, also on Norvasc 2.5mg -would resume these meds and uptitrate as needed #Right arm numbness: concerning given recent hemorrhagic CVA in xs likely related to elevated BP. CTH reassuring. I reviewed CT with Dr. Cheo #HTN: cont home HLD: statin #Recent hemorrhagic CVA: transfer back to inpt rehab. Reviewed CT with neurology , CVA improving, no further imaging warranted #DC back to rehab Subjective: No RICHARDSON. Right arm with min numbness today Objective: Vital Signs Temp Pulse Resp BP Pulse Ox 36.4 C 94 14 143/87 H 95 08/18/17 07:23 08/18/17 07:23 08/18/17 07:23 08/18/17 07:23 08/18/17 07:23 Laboratory Results 08/18/17 04:10 08/18/17 04:10 08/17/17 08/18/17 08/19/17 05:59 05:59 05:59 Intake Total 1500 Output Total 1450 Balance 50 PT 13.6 SEC (12.0-15.0) 08/17/17 20:30 INR 1.05 (0.83-1.16) 08/17/17 20:30 - Physical Exam Constitutional: no apparent distress Eyes: PERRL Ears, Nose, Mouth, Throat: moist mucous membranes Cardiovascular: regular rate and rhythym Respiratory: no respiratory distress Gastrointestinal: normoactive bowel sounds Genitourinary: no bladder fullness Skin: warm Musculoskeletal: other (decreased strength RUE/RLE.) Neurologic: other (min sensation to touch over right arm, hand) Psychiatric: interacting appropriately ICD10 Worksheet Patient Problems: Problems Problem Status Onset Hemorrhagic cerebrovascular accident (CVA) Acute Right hemiparesis Acute HTN (hypertension) Acute Shoulder pain, right Acute Hypertensive urgency Acute Arm paresthesia, right Acute
[2017-08-18] MEDS ORDERED: LABETALOL HCL 100 MG TAB PO SCH (09:00)
[2017-08-18] MEDS ORDERED: LISINOPRIL 40 MG TAB PO SCH (09:00)
--- NOTE | 2017-08-18 14:49 | ASMTCMCOM ---
CM Note CM Note Notes: 08/18/2017 Case Management Note Reviewed chart, spoke w/RN. Pt admitted from [facility] inpatient rehab yesterday. Spoke with Marisela at [facility] ([phone]) who expects pt to d/c back to inpt rehab when medically stable. Marisela reports that pt can transport via wheel chair with family if appropriate. Case Management d/c poc: Return to inpatient rehab when medically stable with follow up as directed. Date Signed: 08/18/2017 02:49 PM Electronically Signed By:Jennifer Greene RN
[2017-08-18 14:50] LABS: COLOR PALE YELLOW; LEUKOCYTE ESTERASE,URINE NEGATIVE (NEGATIVE); NITRITE,URINE NEGATIVE (NEGATIVE)
--- NOTE | 2017-08-18 15:49 | ASMTCMCOM ---
CM Note CM Note Notes: 08/18/2017 Case Management Note Pt d/c back to inpt rehab. Arranged transportation through [facility] requested w/c van. [facility] to pick up driver at 1700. Alerted Marisela at [facility], accepted pt to care. Faxed final d/c notes via [employer] [facility]. Date Signed: 08/18/2017 03:48 PM Electronically Signed By:Jennifer Greene RN
--- NOTE | 2017-08-18 15:55 | PDIAF ---
- Diagnosis Diagnosis: hypertensive urgency - Medication Management Discharge Medications: Medications to Continue on Transfer LORazepam [Ativan (*)] 0.5 mg PO Q8 PRN 07/26/17 [Last Taken 07/25/17] Melatonin [Melatonin 3 MG (*)] 3 mg PO HS PRN 07/26/17 [Last Taken Unknown] Acetaminophen [Tylenol ES 500 mg (*)] 500 mg PO HS PRN 08/18/17 [Last Taken Unknown] Atorvastatin Calcium [Lipitor 20 mg (*)] 20 mg PO HS 08/18/17 [Last Taken ] Lisinopril [Zestril 40 mg (*)] 40 mg PO DAILY tab 08/18/17 [Last Taken Unknown] Pantoprazole Sodium [Protonix 40mg (*)] 40 mg PO DAILY 08/18/17 [Last Taken ] Pantoprazole Sodium [Protonix 40mg (*)] 40 mg PO DAILY 08/18/17 [Last Taken ] amLODIPine BESYLATE [Norvasc 2.5 mg (*)] 2.5 mg PO DAILY 08/18/17 [Last Taken ] traZODone [traZODONE 50MG (*)] 50 mg PO HS PRN 08/18/17 [Last Taken 08/17/17] Discharge Medications: Refer to the Discharge Home Medication list for PRN reason. - Orders Services needed: Registered Nurse Diet Recommendation: cardiac -low fat low salt Diet Texture: Regular Texture Diet Additional: Follow blood pressure closely. Can increase Norvasc if needed. - Follow Up Care Current Providers and Referrals: PING GUZMAN [Other] - As per Instructions
[2017-08-18 16:47] VITALS: BP 169/90; PULSE 102; RESP 15; TEMP 97.7; O2SAT 97
--- NOTE | 2017-08-18 21:18 | GDS ---
[f rep st] DISCHARGE SUMMARY DISCHARGE DIAGNOSES: 1. Hypertensive urgency. 2. Recent hemorrhagic stroke with right arm paraesthesia. 3. Hyperlipidemia. HISTORY OF PRESENT ILLNESS: A 61-year-old male with recent hemorrhagic CVA July 19, 2017, with resultant right hemiparesis, who presented to the ER from inpatient rehab with complaints of headache and right arm heaviness, numbness. He was noted to have a significantly elevated blood pressure 178/ 118. He underwent a CT head which showed improvement of his prior stroke. I spoke with Dr. Douglas at inpatient rehab, stating that he has been on lisinopril 30 mg which was reduced due to hypotension, as well as Norvasc 2.5 mg with good blood pressure control. I reviewed this in our system and systolic blood pressures ranged in 130s. He had a phone call at 4:00 p.m. yesterday that regarded a cat of his and then it turned a discussion about money that caused him increased anxiety and anger. He ate dinner without issue , but still felt anxious. Later that evening is when he developed the right- sided weakness and headache. Denies any fevers, chills, or sweats. No chest pain or shortness of breath. HOSPITAL COURSE BY PROBLEM: 1. Accelerated hypertension: Blood pressure elevated as high as 170/118. He was started on a Cardene drip here, but blood pressure dropped quickly to 130 so this was discontinued. His symptoms have nearly resolved today. He has minimal numbness of that hand. I suspect this is secondary to anxiety and a stressful situation. I have discussed with Dr. Douglas to continue antihypertensives and to monitor this closely. 2. Increased right-sided hemiparesis: I think this is due to the elevated blood pressure. Now with control, there are minimal symptoms. There was no evidence of infection. Urinalysis was negative. Afebrile without a white count. 3. Hyperlipidemia: Continue statin. 4. Recent hemorrhagic stroke: Continue statin. I spoke with Dr. Velasco with Neurology to review the CT. He agrees that the symptoms likely due to elevated blood pressure. The stroke appears that it is evolving. There is no active bleed. DISPOSITION: 1. Patient is stable for discharge back to inpatient. FOLLOWUP: 1. Close monitoring of blood pressure. 2. Up titrate lisinopril. Could also up titrate Norvasc. /[id number]/MODL MTDD
[2017-08-23 11:08] LABS: METANEPHRINES PLASMA METAP <0.20 nmol/L (<0.50)
== END 2017-08-18 17:44 ==
LOC: EDUNIT# → INTOOBSV 22:49 → F2W 23:59
PROVIDERS: ADMIT Family Medicine; ATTEND Internal Medicine
DX: I16.0 Hypertensive urgency (principal); R20.2 Paresthesia of skin; R51 Headache; I69.351 Hemiplegia and hemiparesis following cerebral infarction affecting right dominant side; I69.398 Other sequelae of cerebral infarction; K21.9 Gastro-esophageal reflux disease without esophagitis; E78.5 Hyperlipidemia, unspecified; I10 Essential (primary) hypertension; F41.9 Anxiety disorder, unspecified; G47.33 Obstructive sleep apnea (adult) (pediatric); G47.00 Insomnia, unspecified; E86.9 Volume depletion, unspecified; Z87.891 Personal history of nicotine dependence
CPT/HCPCS: 70450; 93005; 96365; 97161; 99291; G0378; 83835-90

== ENCOUNTER 2017-08-18 16:03 | Inpatient (IN) | payer OTHER ==
[2017-08-18] MEDS ORDERED: MELATONIN 3 MG TAB PO PRN (18:36)
[2017-08-18] MEDS ORDERED: LORazepam 0.5 MG TAB PO PRN (18:36)
--- NOTE | 2017-08-18 19:53 | GHP ---
[f rep st] HISTORY AND PHYSICAL DATE OF ADMISSION: 08/18/2017 The patient spent less than 24 hours at [facility], having been discharged from inpatient rehabilitation due to hypertensive urgency and this is an abbreviated history and physical for his return to inpatient rehabilitation. 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 The stroke happened on 07/19/2017. He was stabilized in the hospital including blood pressure control which initially required IV medications. Lisinopril had been titrated from 10 mg a day to 40 mg a day and he was stable and appropriate for inpatient rehabilitation. He did well during his initial rehabilitation stay with functional independence measure improving from 60 on 07/28/2017 to 72 on 08/03/2017 to 76 on 08/09/2017 and to 82 on 08/17/2017. Bed mobility had improved to standby assist to independent. He was transferring with contact guard assist to minimal assist. He had ambulated 15 feet with a quad cane and 2-person assist and he was also working on ambulation with a light gait machine. He was beginning to have return of movement to the right upper extremity. However, on the evening of 08/17/2017 he developed a very high blood pressure between 160 and 170 over 80-100. He additionally had a fast heart rate of 109- 120 and he was concerned about new increased numbness on his right upper extremity. With these signs and symptoms, he was transferred to the Emergency Department for further care. There, an EKG showed a right bundle branch block, which had been present on his previous EKG at [facility] and a head CT ruled out any extension or of his stroke or new bleed. He was treated with a nicardipine drip which achieved blood pressure control. Laboratory studies, including basic metabolic profile and urinalysis, did not show any etiology or end-organ damage and he was returned to rehabilitation with lisinopril increased to 40 mg p.o. daily. When he developed his hypertensive urgency and tachycardia, he also had increased anxiety around financial issues and around the illness of a pet cat. He currently is without any acute complaints. PAST MEDICAL HISTORY: 1. Cerebrovascular accidents. 2. Hypertension. 3. Dyslipidemia. PAST SURGICAL HISTORY: He has no history of surgeries. MEDICATIONS: Prior to his initial hospitalization he was taking a statin, omeprazole, and he may have been taking an antihypertensive. ALLERGIES: There are no known drug allergies. FAMILY HISTORY: Noncontributory. SOCIAL HISTORY: He is . He lives with his . They live in a 3- level home, though he may be able to live on 1 level. 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 His daughter and son-in-law also live in the home. There is remote history of smoking, but he quit in 1975. REVIEW OF SYSTEMS: A 10-point review of systems was conducted and was negative. He has had no change in his motor control or in sensation. PHYSICAL EXAMINATION: VITAL SIGNS: Vitals are not yet available in the chart. This evening at [facility] his blood pressure was 169/90, his heart rate was 102, his respiratory rate was 15, oxygen saturation was 97% on room air. Temperature was 36.5 degrees centigrade and per report of the nurse his blood pressures are currently in the 140s/90s. GENERAL: This is a well- nourished, well-developed man, sitting up on the edge of the bed, cooperative, and in no acute distress. HEENT: Extraocular movements are intact. Pupils are equal, round, and reactive to light. Mucous membranes are moist. Dentition is in good condition. NECK: Supple. HEART: There is an regular rate and rhythm. No murmurs, rubs, or gallops. LUNGS: Clear to auscultation bilaterally. ABDOMEN: Soft, nontender, nondistended with normoactive bowel sounds. There are no abdominal bruits. EXTREMITIES: There is no cyanosis, clubbing, or edema. NEUROLOGIC: He is alert and oriented x3. He has weakness in the right upper and lower extremity. He is independent, however, in bed mobility and he can move his right upper extremity in all planes. LABORATORY STUDIES: From his recent hospitalization: CBC was overall within normal limits on 08/17/2017. On 08/18 he developed anemia with a hemoglobin of 12.9 and a hematocrit of 37.5, likely due to IV hydration. His PT and INR were normal. Serum chemistry revealed normal renal function and electrolytes. Magnesium was normal at 1.9. Troponin-I was within normal limits at 0.016. TSH was normal at 1.23. Urinalysis revealed an elevated pH at 8, otherwise urinalysis was completely normal. ASSESSMENT AND PLAN: 1. Cerebrovascular accident, left basal ganglia and thalamus, hemorrhagic. Continue PT and OT to optimize his mobility and activities of daily living. 2. Hypertension, possibly driven by a component of anxiety. We will add propranolol starting at a low dose 10 mg p.o. t.i.d. with the 1st dose this evening to be able to treat both anxiety and hypertension. Additionally, I have ordered plasma metanephrines to be added to the sample that was drawn today in the hospital. It is highly unlikely that he has a pheochromocytoma. If he did an alpha rhonda would be indicated 1st prior to beta blockade. However, it is unlikely that a low dose of propranolol would result in uncontrolled alpha stimulus even if there were a very unlikely pheochromocytoma. If his blood pressure continues to increase while on the beta rhonda, would have a low threshold to start clonidine in the short term while awaiting the results. The plasma metanephrine test is a send out and result will be available in about a week. 3. Anxiety. Lorazepam is available on a p.r.n. basis. However, if it continues to be a problem despite dosing of propranolol, would consider initiating an SSRI and reconsider a psychiatry consult. 4. Cognitive impairment was minimal on his prior stay. He was working on higher level cognitive activities with Speech and Language Pathology. 5. Secondary stroke prophylaxis. Continue atorvastatin as well as blood pressure control. 6. Insomnia. Continue trazodone which has been effective. 7. History of gastroesophageal reflux disorder. Continue pantoprazole. 8. Possible obstructive sleep apnea with history of snoring and crowded airway on prior exam. Advise sleep study after discharge. 9. Risk for deep venous thrombosis. Continue enoxaparin. His mobility is improving and it is conceivable that before discharge he will no longer need DVT prophylaxis. It is likely that he will continue to require a wheelchair for community distances, but he may be able to ambulate at home with the assistance of his for household distances. He will need a ramp from his garage and he will need a railing on the right side of the steps to the upstairs of his house. There is a half bath on the main floor where he can live initially. Continue discharge date as said during previous rehabilitation stay of 09/01/2017 with plan to have home PT with a goal to be able to use the stairs and outpatient OT. FOLLOWUP: He is to follow up with his primary care provider, Dr. Gema Greene , after discharge. /[id number]/MODL MTDD
[2017-08-18] MEDS ORDERED: TROLAMINE SALICYLATE 85 GM CRTUBE TP PRN (21:14)
[2017-08-18] MEDS: ATORVASTATIN CALCIUM 20 MG TAB PO SCH (21:25)
[2017-08-18] MEDS: PROPRANOLOL HCL 10 MG TAB PO SCH (21:25)
[2017-08-18] MEDS: traZODone 50 MG TAB PO PRN (21:29)
[2017-08-18] MEDS: ACETAMINOPHEN 500 MG TAB PO PRN (21:29)
[2017-08-19] MEDS: LISINOPRIL 40 MG TAB PO SCH (08:27)
[2017-08-19] MEDS: PROPRANOLOL HCL 10 MG TAB PO SCH ×3 (08:29→21:07)
[2017-08-19] MEDS: PANTOPRAZOLE SODIUM 40 MG TAB PO SCH (08:30)
[2017-08-19] MEDS: ENOXAPARIN 40 MG/0.4 ML SYR SC SCH (09:00)
--- NOTE | 2017-08-19 13:32 | PDOREHIP ---
Admission [facility] - Admission - 3 Day Assessment Period Admission Date/Day 1: 08/18/17 Day 2: 08/19/17 Day 3: 08/20/17 - Active Diagnoses Comorbidities and Co-existing Conditions at Admission: 86029. None of the Above - Skin Conditions Unhealed Pressure Ulcer (1 or more/Stage 1 or >)-Admission: 0. No
--- NOTE | 2017-08-19 13:32 | PDOREHIP ---
Admission [facility] - Admission - 3 Day Assessment Period Admission Date/Day 1: 08/18/17 Day 2: 08/19/17 Day 3: 08/20/17 - Active Diagnoses Comorbidities and Co-existing Conditions at Admission: 72536. None of the Above - Skin Conditions Unhealed Pressure Ulcer (1 or more/Stage 1 or >)-Admission: 0. No
--- NOTE | 2017-08-19 13:32 | PDOREHIP ---
Admission [facility] - Admission - 3 Day Assessment Period Admission Date/Day 1: 08/18/17 Day 2: 08/19/17 Day 3: 08/20/17 - Active Diagnoses Comorbidities and Co-existing Conditions at Admission: 15307. None of the Above - Skin Conditions Unhealed Pressure Ulcer (1 or more/Stage 1 or >)-Admission: 0. No
--- NOTE | 2017-08-19 13:44 | SOAPPROG ---
SOAP Progress Note Assessment/Plan: Assessment: * Cerebrovascular accident 07/19/2017, left basal ganglia and thalamus, hemorrhagic. Has had improvement in FIM from 60 on 07/28/2017 to 82 as of 2016. Bed mobility is standby assist to independent, transfers contact guard assist to minimal assist. Ambulated 15 feet with quad cane and 2 person assist , also using light gait. Has return of movement to the right upper extremity except for finger extension. Upper body dressing is done with standby and cues , lower body dressing requires some assistance to minute maintain a cross- legged position for right AFO and shoe. Bathing requires minimal assistance best transfer contact guard to minimal assistance. Decreased sensation on the left noted. 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 Continue PT and OT to optimize his mobility and activities of daily living. * Hypertension, possibly driven by a component of anxiety. Added propranolol starting at a low dose 10 mg p.o. t.i.d. starting 08/18/2017, to treat both anxiety and hypertension. Titrated to 20 mg p.o. three times daily starting . Ordered plasma metanephrines to rule out the unlikely pheochromocytoma. Result will be available approximately 08/25/2017. * Anxiety. Lorazepam is available on a p.r.n. basis. However, if it continues to be a problem despite dosing of propranolol, would consider initiating an SSRI and reconsider a psychiatry consult. * Cognitive impairment was minimal on his prior stay. He was working on higher level cognitive activities with Speech and Language Pathology. * Secondary stroke prophylaxis. Continue atorvastatin as well as blood pressure control. * Insomnia. Continue trazodone which has been effective. * History of gastroesophageal reflux disorder. Continue pantoprazole. * Possible obstructive sleep apnea with history of snoring and crowded airway on prior exam. Advise sleep study after discharge. * Risk for deep venous thrombosis. Continue enoxaparin. His mobility is improving and it is conceivable that before discharge he will no longer need DVT prophylaxis. It is likely that he will continue to require a wheelchair for community distances, but he may be able to ambulate at home with the assistance of his for household distances. He will need a ramp from his garage and he will need a railing on the right side of the steps to the upstairs of his house. There is a half bath on the main floor where he can live initially. Continue discharge date as said during previous rehabilitation stay of 09/01/2017 with plan to have home PT with a goal to be able to use the stairs and outpatient OT. FOLLOWUP: He is to follow up with his primary care provider, Dr. Gema Greene , after discharge. Consider cardiology follow up regarding right bundle branch block. 08/19/17 13:44 Subjective: No complaints. Slept well. He has some concern around his systolic blood pressure continuing in the 140s but he does not report a high level of anxiety. No cough, dyspnea, fevers, chills. Objective: Vital Signs Temp Pulse Resp BP Pulse Ox 36.5 C 65 16 133/75 H 97 08/19/17 08:00 08/19/17 12:10 08/19/17 08:00 08/19/17 12:10 08/19/17 08:00 08/18/17 08/19/17 08/20/17 05:59 05:59 05:59 Intake Total 400 472 Balance 400 472 Physical Exam - Physical Exam General Appearance: WD/WN, alert, no apparent distress Respiratory: normal breath sounds, No crackles, No rhonchi, No wheezing Cardiac/Chest: regular rate, rhythm, No edema, No diastolic murmur, No systolic murmur Skin: normal color, warm/dry Neuro/Psych: alert, normal mood/affect, oriented x 3 ICD10 Worksheet Patient Problems: Problems Problem Status Onset Arm paresthesia, right Acute HTN (hypertension) Acute Hemorrhagic cerebrovascular accident (CVA) Acute Hypertensive urgency Acute Right hemiparesis Acute Shoulder pain, right Acute
[2017-08-19] MEDS ORDERED: FLU VACC QS 2017-18 (3YR+)/PF 0.5 ML SYR (FLUARIX QUAD) IM ONE (18:00)
[2017-08-19] MEDS: ACETAMINOPHEN 500 MG TAB PO PRN (21:07)
[2017-08-19] MEDS: ATORVASTATIN CALCIUM 20 MG TAB PO SCH (21:07)
[2017-08-19] MEDS: FLUTICASONE NASAL 120 SPRAYS/16 GM MDI EACHNARE SCH (21:07)
[2017-08-20] MEDS: PROPRANOLOL HCL 10 MG TAB PO SCH ×3 (08:54→20:26)
[2017-08-20] MEDS: LISINOPRIL 40 MG TAB PO SCH (08:54)
[2017-08-20] MEDS: ENOXAPARIN 40 MG/0.4 ML SYR SC SCH (08:55)
[2017-08-20] MEDS: PANTOPRAZOLE SODIUM 40 MG TAB PO SCH (08:56)
--- NOTE | 2017-08-20 13:59 | SOAPPROG ---
SOAP Progress Note Assessment/Plan: Assessment: * Cerebrovascular accident 07/19/2017, left basal ganglia and thalamus, hemorrhagic. Has had improvement in FIM from 60 on 07/28/2017 to 82 as of 2016. Bed mobility is standby assist to independent, transfers contact guard assist to minimal assist. Ambulated 15 feet with quad cane and 2 person assist , also using light gait. Has return of movement to the right upper extremity except for finger extension. Upper body dressing is done with standby and cues , lower body dressing requires some assistance to maintain a cross-legged position for right AFO and shoe. Bathing requires minimal assistance. Bath transfer contact guard to minimal assistance. 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 Continue PT and OT to optimize his mobility and activities of daily living. * Hypertension, possibly driven by a component of anxiety. Added propranolol starting at a low dose 10 mg p.o. t.i.d. starting 08/18/2017, to treat both anxiety and hypertension. Titrated to 20 mg p.o. three times daily starting . Ordered plasma metanephrines to rule out the unlikely pheochromocytoma. Result will be available approximately 08/25/2017. * Anxiety. Lorazepam is available on a p.r.n. basis. However, if it continues to be a problem despite dosing of propranolol, would consider initiating an SSRI and reconsider a psychiatry consult. * Cognitive impairment was minimal on his prior stay. He was working on higher level cognitive activities with Speech and Language Pathology. * Secondary stroke prophylaxis. Continue atorvastatin as well as blood pressure control. * Insomnia. Continue trazodone which has been effective. * History of gastroesophageal reflux disorder. Continue pantoprazole. * Possible obstructive sleep apnea with history of snoring and crowded airway on prior exam. Advise sleep study after discharge. * Risk for deep venous thrombosis. Continue enoxaparin. His mobility is improving and it is conceivable that before discharge he will no longer need DVT prophylaxis. It is likely that he will continue to require a wheelchair for community distances, but he may be able to ambulate at home with the assistance of his for household distances. He will need a ramp from his garage and he will need a railing on the right side of the steps to the upstairs of his house. There is a half bath on the main floor where he can live initially. Continue discharge date as said during previous rehabilitation stay of 09/01/2017 with plan to have home PT with a goal to be able to use the stairs and outpatient OT. FOLLOWUP: He is to follow up with his primary care provider, Dr. Gema Greene , after discharge. Consider cardiology follow up regarding right bundle branch block. 08/20/17 13:53 Subjective: No complaints. Sleeping well. No cough, dyspnea, fevers, chills. Working on ambulating with physical therapy. Objective: Vital Signs Temp Pulse Resp BP Pulse Ox 36.7 C 69 16 144/78 H 95 08/20/17 08:00 08/20/17 08:54 08/20/17 08:00 08/20/17 08:55 08/20/17 08:00 08/19/17 08/20/17 08/21/17 05:59 05:59 05:59 Intake Total 400 730 790 Balance 400 730 790 Physical Exam - Physical Exam General Appearance: WD/WN, alert, no apparent distress Respiratory: No respiratory distress, No accessory muscle use Skin: normal color, warm/dry Neuro/Psych: alert, normal mood/affect, oriented x 3, motor weakness (Right upper and lower extremities. Ambulating with physical therapy assisting with right foot clearance and right knee bending. Has improved activation of right hip flexors.) ICD10 Worksheet Patient Problems: Problems Problem Status Onset Arm paresthesia, right Acute HTN (hypertension) Acute Hemorrhagic cerebrovascular accident (CVA) Acute Hypertensive urgency Acute Right hemiparesis Acute Shoulder pain, right Acute
[2017-08-20] MEDS: FLUTICASONE NASAL 120 SPRAYS/16 GM MDI EACHNARE SCH (20:25)
[2017-08-20] MEDS: ATORVASTATIN CALCIUM 20 MG TAB PO SCH (20:26)
[2017-08-21] MEDS: ENOXAPARIN 40 MG/0.4 ML SYR SC SCH (09:00)
[2017-08-21] MEDS: LISINOPRIL 40 MG TAB PO SCH (09:01)
[2017-08-21] MEDS: PANTOPRAZOLE SODIUM 40 MG TAB PO SCH (09:01)
[2017-08-21] MEDS: PROPRANOLOL HCL 10 MG TAB PO SCH ×3 (09:01→20:28)
--- NOTE | 2017-08-21 09:20 | SOAPPROG ---
SOAP Progress Note Assessment/Plan: Mr. Rivero is a 61 y/o male with a Hypertension and hemorrhagic CVA: * Cerebrovascular accident 07/19/2017, left basal ganglia and thalamus, hemorrhagic. Has had improvement in FIM from 60 on 07/28/2017 to 82 as of 2016. Bed mobility is standby assist to independent, transfers contact guard assist to minimal assist. Ambulated 15 feet with quad cane and 2 person assist , also using light gait. Has return of movement to the right upper extremity except for finger extension. Upper body dressing is done with standby and cues , lower body dressing requires some assistance to maintain a cross-legged position for right AFO and shoe. Bathing requires minimal assistance. Bath transfer contact guard to minimal assistance. 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 Continue PT and OT to optimize his mobility and activities of daily living. * Hypertension, possibly driven by a component of anxiety. Added propranolol starting at a low dose 10 mg p.o. t.i.d. starting 08/18/2017, to treat both anxiety and hypertension. Titrated to 20 mg p.o. three times daily starting . Ordered plasma metanephrines to rule out the unlikely pheochromocytoma. Result will be available approximately 08/25/2017. Continue to monitor and if remains elevated will increase amlodipine to 5 mg daily * Anxiety. Lorazepam is available on a p.r.n. basis. However, if it continues to be a problem despite dosing of propranolol, would consider initiating an SSRI and reconsider a psychiatry consult. * Cognitive impairment was minimal on his prior stay. He was working on higher level cognitive activities with Speech and Language Pathology. * Secondary stroke prophylaxis. Continue atorvastatin as well as blood pressure control. * Insomnia. Continue trazodone which has been effective. * History of gastroesophageal reflux disorder. Continue pantoprazole. * Possible obstructive sleep apnea with history of snoring and crowded airway on prior exam. Advise sleep study after discharge. * Risk for deep venous thrombosis. Continue enoxaparin. His mobility is improving and it is conceivable that before discharge he will no longer need DVT prophylaxis. It is likely that he will continue to require a wheelchair for community distances, but he may be able to ambulate at home with the assistance of his for household distances. He will need a ramp from his garage and he will need a railing on the right side of the steps to the upstairs of his house. There is a half bath on the main floor where he can live initially. Continue discharge date as said during previous rehabilitation stay of 09/01/2017 with plan to have home PT with a goal to be able to use the stairs and outpatient OT. FOLLOWUP: He is to follow up with his primary care provider, Dr. Gema Greene , after discharge. Consider cardiology follow up regarding right bundle branch block. 08/21/17 09:17 Subjective: Feeling good this morning - Worrying about his BP but knows that we are watching closely so will try not to think about it. No new concerns this morning - no neurologic changes/complaints. No cp/sob/ignacio Objective: Vital Signs Temp Pulse Resp BP Pulse Ox 36.4 C 72 16 140/90 H 93 08/20/17 20:00 08/20/17 20:26 08/20/17 20:00 08/20/17 22:02 08/20/17 20:00 08/20/17 08/21/17 08/22/17 05:59 05:59 05:59 Intake Total 730 1810 Balance 730 1810 Physical Exam - Physical Exam General Appearance: alert, no apparent distress, other (mildly anxious) EENT: other (MMM) Respiratory: lungs clear, normal breath sounds Cardiac/Chest: regular rate, rhythm Abdomen: normal bowel sounds, non-tender Skin: normal color Extremities: other (No LE edema - Does have minimal/mild edema of the right hand ) Neuro/Psych: alert, normal mood/affect, oriented x 3 ICD10 Worksheet Patient Problems: Problems Problem Status Onset Arm paresthesia, right Acute HTN (hypertension) Acute Hemorrhagic cerebrovascular accident (CVA) Acute Hypertensive urgency Acute Right hemiparesis Acute Shoulder pain, right Acute
[2017-08-21] MEDS: traZODone 50 MG TAB PO PRN (20:27)
[2017-08-21] MEDS: ATORVASTATIN CALCIUM 20 MG TAB PO SCH (20:27)
[2017-08-21] MEDS: FLUTICASONE NASAL 120 SPRAYS/16 GM MDI EACHNARE SCH (20:32)
[2017-08-22] MEDS: ACETAMINOPHEN 500 MG TAB PO PRN ×2 (02:27→21:22)
--- NOTE | 2017-08-22 08:08 | SOAPPROG ---
SOAP Progress Note Assessment/Plan: Mr. Rivero is a 61 y/o male with a Hypertension and hemorrhagic CVA: * Cerebrovascular accident 07/19/2017, left basal ganglia and thalamus, hemorrhagic. Has had improvement in FIM from 60 on 07/28/2017 to 82 as of 2016. Bed mobility is standby assist to independent, transfers contact guard assist to minimal assist. Ambulated 15 feet with quad cane and 2 person assist , also using light gait. Has return of movement to the right upper extremity except for finger extension. Upper body dressing is done with standby and cues , lower body dressing requires some assistance to maintain a cross-legged position for right AFO and shoe. Bathing requires minimal assistance. Bath transfer contact guard to minimal assistance. 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 Continue PT and OT to optimize his mobility and activities of daily living. * Hypertension, possibly driven by a component of anxiety. Added propranolol starting at a low dose 10 mg p.o. t.i.d. starting 08/18/2017, to treat both anxiety and hypertension. Titrated to 20 mg p.o. three times daily starting . Ordered plasma metanephrines to rule out the unlikely pheochromocytoma. Result will be available approximately 08/25/2017. Continue to monitor and if remains elevated will increase amlodipine to 5 mg daily * Anxiety. Lorazepam is available on a p.r.n. basis. However, if it continues to be a problem despite dosing of propranolol, would consider initiating an SSRI and reconsider a psychiatry consult. * Cognitive impairment was minimal on his prior stay. He was working on higher level cognitive activities with Speech and Language Pathology. * Secondary stroke prophylaxis. Continue atorvastatin as well as blood pressure control. * Insomnia. Continue trazodone which has been effective. * History of gastroesophageal reflux disorder. Continue pantoprazole. * Possible obstructive sleep apnea with history of snoring and crowded airway on prior exam. Advise sleep study after discharge. * Risk for deep venous thrombosis. Continue enoxaparin. His mobility is improving and it is conceivable that before discharge he will no longer need DVT prophylaxis. Continue current rehabilitation plan of care. Pt grateful for discussion yesterday about him focusing on the rehab and we will focus on the medical management. Said it really helped him to stop worrying so much. NO new neurologic concerns. Having good bm's. no new pain to manage It is likely that he will continue to require a wheelchair for community distances, but he may be able to ambulate at home with the assistance of his for household distances. He will need a ramp from his garage and he will need a railing on the right side of the steps to the upstairs of his house. There is a half bath on the main floor where he can live initially. Continue discharge date as said during previous rehabilitation stay of 09/01/2017 with plan to have home PT with a goal to be able to use the stairs and outpatient OT. FOLLOWUP: He is to follow up with his primary care provider, Dr. Gema Greene , after discharge. Consider cardiology follow up regarding right bundle branch block. 08/22/17 08:03 Subjective: Feeling good today - Feels that his mind is more at ease as he realizes he has many people looking out for his "medical" well-being. No new pain nor neurologic changes today. Looking forward to another good day of rehab. Objective: Vital Signs Temp Pulse Resp BP Pulse Ox 36.4 C 62 16 131/76 H 92 08/21/17 20:00 08/21/17 20:28 08/21/17 20:00 08/21/17 20:28 08/21/17 20:00 08/21/17 08/22/17 08/23/17 05:59 05:59 05:59 Intake Total 1810 1700 Balance 1810 1700 Physical Exam - Physical Exam General Appearance: alert, no apparent distress, other (in the bathroom performing basic ADL's) EENT: other (MMM) Respiratory: lungs clear, normal breath sounds Cardiac/Chest: regular rate, rhythm Abdomen: normal bowel sounds, soft Extremities: other (Left side paresis) Neuro/Psych: alert, normal mood/affect, oriented x 3 ICD10 Worksheet Patient Problems: Problems Problem Status Onset Arm paresthesia, right Acute HTN (hypertension) Acute Hemorrhagic cerebrovascular accident (CVA) Acute Hypertensive urgency Acute Right hemiparesis Acute Shoulder pain, right Acute
[2017-08-22] MEDS: PROPRANOLOL HCL 10 MG TAB PO SCH ×3 (09:32→21:22)
[2017-08-22] MEDS: PANTOPRAZOLE SODIUM 40 MG TAB PO SCH (09:32)
[2017-08-22] MEDS: LISINOPRIL 40 MG TAB PO SCH (09:32)
[2017-08-22] MEDS: ENOXAPARIN 40 MG/0.4 ML SYR SC SCH (09:32)
[2017-08-22] MEDS: traZODone 50 MG TAB PO PRN (21:22)
[2017-08-22] MEDS: FLUTICASONE NASAL 120 SPRAYS/16 GM MDI EACHNARE SCH (21:22)
[2017-08-22] MEDS: ATORVASTATIN CALCIUM 20 MG TAB PO SCH (21:22)
[2017-08-23] MEDS: PROPRANOLOL HCL 10 MG TAB PO SCH ×3 (08:36→21:20)
[2017-08-23] MEDS: PANTOPRAZOLE SODIUM 40 MG TAB PO SCH (08:37)
[2017-08-23] MEDS: LISINOPRIL 40 MG TAB PO SCH (08:37)
[2017-08-23] MEDS: ENOXAPARIN 40 MG/0.4 ML SYR SC SCH (10:37)
--- NOTE | 2017-08-23 13:12 | SOAPPROG ---
SOAP Progress Note Assessment/Plan: Assessment: * Cerebrovascular accident 07/19/2017, left basal ganglia and thalamus, hemorrhagic. Has had improvement in FIM from 60 on 07/28/2017 to 82 as of 2016. Bed mobility is standby assist to independent, transfers contact guard assist to minimal assist. Ambulated 15 feet with quad cane and 2 person assist , also using light gait. Has return of movement to the right upper extremity except for finger extension. Upper body dressing is done with standby and cues , lower body dressing requires some assistance to maintain a cross-legged position for right AFO and shoe. Bathing requires minimal assistance. Bath transfer contact guard to minimal assistance. 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 Continue PT and OT to optimize his mobility and activities of daily living. * Hypertension, possibly driven by a component of anxiety. Added propranolol starting at a low dose 10 mg p.o. t.i.d. starting 08/18/2017, to treat both anxiety and hypertension. Titrated to 20 mg p.o. three times daily starting . Plasma metanephrines no elevated so pheochromocytoma ruled out. Result will be available approximately 08/25/2017. * Anxiety. Lorazepam is available on a p.r.n. basis. However, if it continues to be a problem despite dosing of propranolol, would consider initiating an SSRI and reconsider a psychiatry consult. * Cognitive impairment was minimal on his prior stay. He was working on higher level cognitive activities with Speech and Language Pathology. * Secondary stroke prophylaxis. Continue atorvastatin as well as blood pressure control. * Insomnia. Continue trazodone which has been effective. * History of gastroesophageal reflux disorder. Continue pantoprazole. * Possible obstructive sleep apnea with history of snoring and crowded airway on prior exam. Advise sleep study after discharge. * Risk for deep venous thrombosis. Continue enoxaparin. His mobility is improving and it is conceivable that before discharge he will no longer need DVT prophylaxis. It is likely that he will continue to require a wheelchair for community distances, but he may be able to ambulate at home with the assistance of his for household distances. He will need a ramp from his garage and he will need a railing on the right side of the steps to the upstairs of his house. There is a half bath on the main floor where he can live initially. Continue discharge date as said during previous rehabilitation stay of 09/01/2017 with plan to have home PT with a goal to be able to use the stairs and outpatient OT. FOLLOWUP: He is to follow up with his primary care provider, Dr. Gema Greene , after discharge. Consider cardiology follow up regarding right bundle branch block. 08/23/17 13:10 Subjective: No complaints other than reporting discomfort from the bed he has. He says that his butt hurts after about 6 hours any wakes up. Objective: Vital Signs Temp Pulse Resp BP Pulse Ox 36.5 C 62 16 113/80 93 08/23/17 06:34 08/23/17 08:36 08/23/17 06:34 08/23/17 06:34 08/23/17 06:34 08/22/17 08/23/17 08/24/17 05:59 05:59 05:59 Intake Total 1700 1140 476 Output Total 200 Balance 1700 1140 276 Physical Exam - Physical Exam General Appearance: WD/WN, alert, no apparent distress Respiratory: normal breath sounds, No crackles, No rhonchi, No wheezing Cardiac/Chest: regular rate, rhythm, No edema Skin: normal color, warm/dry Neuro/Psych: alert, normal mood/affect, oriented x 3 ICD10 Worksheet Patient Problems: Problems Problem Status Onset Arm paresthesia, right Acute HTN (hypertension) Acute Hemorrhagic cerebrovascular accident (CVA) Acute Hypertensive urgency Acute Right hemiparesis Acute Shoulder pain, right Acute
[2017-08-23] MEDS: ACETAMINOPHEN 500 MG TAB PO PRN (21:20)
[2017-08-23] MEDS: ATORVASTATIN CALCIUM 20 MG TAB PO SCH (21:20)
[2017-08-23] MEDS: traZODone 50 MG TAB PO PRN (21:21)
[2017-08-23] MEDS: FLUTICASONE NASAL 120 SPRAYS/16 GM MDI EACHNARE SCH (21:24)
[2017-08-24] MEDS: ENOXAPARIN 40 MG/0.4 ML SYR SC SCH (08:40)
[2017-08-24] MEDS: PROPRANOLOL HCL 10 MG TAB PO SCH ×3 (08:41→21:05)
[2017-08-24] MEDS: LISINOPRIL 40 MG TAB PO SCH (08:41)
[2017-08-24] MEDS: PANTOPRAZOLE SODIUM 40 MG TAB PO SCH (08:44)
--- NOTE | 2017-08-24 12:45 | SOAPPROG ---
SOAP Progress Note Assessment/Plan: Assessment: * Cerebrovascular accident 07/19/2017, left basal ganglia and thalamus, hemorrhagic. Has had improvement in FIM from 60 on 07/28/2017 to 82 as of 2016, and to 89 as of 08/24/2017. Standby assist for bed mobility and transfers. Ambulated 70 feet with a tracking pole and a right AFO with minimal to moderate assist for occasional loss of balance. Contact guard to transfer into the shower and minimal assist to transfer out; accomplish his bathing with supervision. Can dress upper body independently; for lower body requires standby assist to minimal assist especially for the AFO and hiking pants. Continue PT and OT. * Hypertension, possibly driven by a component of anxiety. Added propranolol starting at a low dose 10 mg p.o. t.i.d. starting 08/18/2017, to treat both anxiety and hypertension. Titrated to 20 mg p.o. three times daily starting . Plasma metanephrines no elevated so pheochromocytoma ruled out. Result will be available approximately 08/25/2017. * Anxiety. Lorazepam is available on a p.r.n. basis; not using. Consider initiating an SSRI and reconsider a psychiatry consult, but seems to be effectively treated with propranolol. * Cognitive impairment was minimal on his prior stay. He was working on higher level cognitive activities with Speech and Language Pathology. * Secondary stroke prophylaxis. Continue atorvastatin as well as blood pressure control. * Insomnia. Continue trazodone which has been effective. * History of gastroesophageal reflux disorder. Continue pantoprazole. * Possible obstructive sleep apnea with history of snoring and crowded airway on prior exam. Advise sleep study after discharge. * Risk for deep venous thrombosis. Continue enoxaparin. His mobility is improving and it is conceivable that before discharge he will no longer need DVT prophylaxis. Attended staffing, 15 minutes. Discussed with case management, pharmacy, nursing, PT, OT. Functional goal is for him to be able to self transfer out of wheelchair into 1st floor half bath. He will need a ramp from his garage and he will need a railing on the right side of the steps to the upstairs of his house. Discharge date set for 09/03/2017 to 09/08/2017. Plan for family conference on 08/31/2017. Home PT with a goal to be able to use the stairs and outpatient OT. He has a mobility limitation that significantly impairs 1 mobility related ADLs in the home. His functional mobility deficit cannot be resolved with a walker or cane. His home is adequate for accessing rooms maneuvering space and surfaces. Wheelchair will significantly improve the ability to participate in a.m. are ADLs and patient will use it regularly. He has not expressed and unwillingness to use a wheelchair and he has sufficient physical and mental abilities to safely use a wheelchair. FOLLOWUP: He is to follow up with his primary care provider, Dr. Gema Greene , after discharge. Consider cardiology follow up regarding right bundle branch block. 08/24/17 13:52 Subjective: No complaints. Working on walking. Has return of movement to left shoulder and elbow but not to wrist or hand. Objective: Vital Signs Temp Pulse Resp BP Pulse Ox 36.5 C 57 L 14 110/66 93 08/24/17 07:15 08/24/17 08:41 08/24/17 07:15 08/24/17 08:41 08/24/17 07:15 08/23/17 08/24/17 08/25/17 05:59 05:59 05:59 Intake Total 1140 994 236 Output Total 200 Balance 1140 794 236 - Time Spent With Patient Time Spent With Patient: Greater than 35 minutes floor time today, including more than 50% of time in coordination of care during staffing meeting, and counseling patient. Physical Exam - Physical Exam General Appearance: WD/WN, alert, no apparent distress Respiratory: normal breath sounds, No crackles, No rhonchi, No wheezing Cardiac/Chest: regular rate, rhythm, No edema Skin: normal color, warm/dry Neuro/Psych: alert, normal mood/affect, oriented x 3, motor weakness (Left upper and lower extremities) ICD10 Worksheet Patient Problems: Problems Problem Status Onset Arm paresthesia, right Acute HTN (hypertension) Acute Hemorrhagic cerebrovascular accident (CVA) Acute Hypertensive urgency Acute Right hemiparesis Acute Shoulder pain, right Acute
[2017-08-24] MEDS: traZODone 50 MG TAB PO PRN (21:05)
[2017-08-24] MEDS: ACETAMINOPHEN 500 MG TAB PO PRN (21:05)
[2017-08-24] MEDS: ATORVASTATIN CALCIUM 20 MG TAB PO SCH (21:06)
[2017-08-24] MEDS: FLUTICASONE NASAL 120 SPRAYS/16 GM MDI EACHNARE SCH (21:06)
[2017-08-25] MEDS: ENOXAPARIN 40 MG/0.4 ML SYR SC SCH (08:51)
[2017-08-25] MEDS: PANTOPRAZOLE SODIUM 40 MG TAB PO SCH (08:52)
[2017-08-25] MEDS: PROPRANOLOL HCL 10 MG TAB PO SCH ×3 (08:57→20:39)
[2017-08-25] MEDS: LISINOPRIL 40 MG TAB PO SCH (08:58)
--- NOTE | 2017-08-25 13:52 | SOAPPROG ---
SOAP Progress Note Assessment/Plan: Assessment: * Cerebrovascular accident 07/19/2017, left basal ganglia and thalamus, hemorrhagic. Has had improvement in FIM from 60 on 07/28/2017 to 82 as of 2016, and to 89 as of 08/24/2017. Standby assist for bed mobility and transfers. Ambulated 70 feet with a trekking pole and a right AFO with minimal to moderate assist for occasional loss of balance. Contact guard to transfer into the shower and minimal assist to transfer out; accomplish his bathing with supervision. Can dress upper body independently; for lower body requires standby assist to minimal assist especially for the AFO and hiking pants. Continue PT and OT. * Hypertension, possibly driven by a component of anxiety. Added propranolol starting at a low dose 10 mg p.o. t.i.d. starting 08/18/2017, to treat both anxiety and hypertension. Titrated to 20 mg p.o. three times daily starting . Plasma metanephrines no elevated so pheochromocytoma ruled out. * Anxiety. Lorazepam is available on a p.r.n. basis; not using. Consider initiating an SSRI and reconsider a psychiatry consult, but seems to be effectively treated with propranolol. * Cognitive impairment was minimal on his prior stay. He was working on higher level cognitive activities with Speech and Language Pathology. * Secondary stroke prophylaxis. Continue atorvastatin as well as blood pressure control. * Insomnia. Continue trazodone which has been effective. * History of gastroesophageal reflux disorder. Continue pantoprazole. * Possible obstructive sleep apnea with history of snoring and crowded airway on prior exam. Advise sleep study after discharge. * Risk for deep venous thrombosis. Continue enoxaparin. His mobility is improving and it is conceivable that before discharge he will no longer need DVT prophylaxis. Functional goal is for him to be able to self transfer out of wheelchair into 1st floor half bath. He will need a ramp from his garage and he will need a railing on the right side of the steps to the upstairs of his house. Discharge date set for 09/03/2017 to 09/08/2017. Plan for family conference on 08/31/2017. Home PT with a goal to be able to use the stairs and outpatient OT. He has a mobility limitation that significantly impairs 1 mobility related ADLs in the home. His functional mobility deficit cannot be resolved with a walker or cane. His home is adequate for accessing rooms maneuvering space and surfaces. Wheelchair will significantly improve the ability to participate in a.m. are ADLs and patient will use it regularly. He has not expressed and unwillingness to use a wheelchair and he has sufficient physical and mental abilities to safely use a wheelchair. FOLLOWUP: He is to follow up with his primary care provider, Dr. Gema Greene , after discharge. Consider cardiology follow up regarding right bundle branch block. 08/25/17 13:51 Subjective: Reports tingling sensation on the right ankle. Wonders if it might be because of the AFO; this is his 2nd day with a custom AFO. Denies pain. No cough or dyspnea, no fevers or chills. Objective: Vital Signs Temp Pulse Resp BP Pulse Ox 36.4 C 67 14 114/86 H 94 08/25/17 08:00 08/25/17 08:57 08/25/17 08:00 08/25/17 08:58 08/25/17 08:00 08/24/17 08/25/17 08/26/17 05:59 05:59 05:59 Intake Total 994 1104 618 Output Total 200 Balance 794 1104 618 Physical Exam - Physical Exam General Appearance: WD/WN, alert, no apparent distress Respiratory: No respiratory distress, No accessory muscle use Cardiac/Chest: No edema Skin: normal color, warm/dry Neuro/Psych: alert, normal mood/affect, oriented x 3, abnormal gait (Ambulates with tracking pole in left hand. Right leg forward swing accomplished with raising of right hip with careful conscious attention to positioning of right leg and foot prior to weighting the leg.), motor weakness (Right upper and lower extremities) ICD10 Worksheet Patient Problems: Problems Problem Status Onset Arm paresthesia, right Acute HTN (hypertension) Acute Hemorrhagic cerebrovascular accident (CVA) Acute Hypertensive urgency Acute Right hemiparesis Acute Shoulder pain, right Acute
[2017-08-25] MEDS: ACETAMINOPHEN 500 MG TAB PO PRN (20:39)
[2017-08-25] MEDS: traZODone 50 MG TAB PO PRN (20:39)
[2017-08-25] MEDS: ATORVASTATIN CALCIUM 20 MG TAB PO SCH (20:40)
[2017-08-25] MEDS: FLUTICASONE NASAL 120 SPRAYS/16 GM MDI EACHNARE SCH (20:44)
[2017-08-26] MEDS: PANTOPRAZOLE SODIUM 40 MG TAB PO SCH (08:51)
[2017-08-26] MEDS: ENOXAPARIN 40 MG/0.4 ML SYR SC SCH (08:51)
[2017-08-26] MEDS: LISINOPRIL 40 MG TAB PO SCH (08:51)
[2017-08-26] MEDS: PROPRANOLOL HCL 10 MG TAB PO SCH ×3 (08:51→20:51)
--- NOTE | 2017-08-26 14:41 | SOAPPROG ---
[facility] Progress Note Assessment/Plan: 61-year-old male with hemorrhagic stroke on 07/26/2017 of the left thalamus and basal ganglia with right hemiparesis, stroke occurred on 07/19/2017. Today's update: Tingling on the right leg associated with use of the AFO seems to be related more to recovery of sensation on the right leg rather than ill fitting AFO. Continue to monitor skin and nerve function closely, however also recommended desensitization exercises to improve sensation and decreased allodynia. Prefer the strategy over medical management at this point. His home is accessible, he is working with his on caregiver training. A total of 25 minutes was not on the floor in the care of the patient, the majority of which was spent in counseling and coordination of care regarding education about neuro recovery and neurogenic pain * Cerebrovascular accident 07/19/2017, left basal ganglia and thalamus, hemorrhagic. Impairments in mobility and self-care. Has had improvement in FIM from 60 on 07/28/2017 to 82 as of 08/17/2017, and to 89 as of 08/24/2017. Standby assist for bed mobility and transfers. Ambulated 70 feet with a trekking pole and a right AFO with minimal to moderate assist for occasional loss of balance. Contact guard to transfer into the shower and minimal assist to transfer out; accomplish his bathing with supervision. Can dress upper body independently; for lower body requires standby assist to minimal assist especially for the AFO and hiking pants. Continue PT and OT. * Hypertension, possibly driven by a component of anxiety. Added propranolol starting at a low dose 10 mg p.o. t.i.d. starting 08/18/2017, to treat both anxiety and hypertension. Titrated to 20 mg p.o. three times daily starting . Plasma metanephrines no elevated so pheochromocytoma ruled out. * Anxiety. Lorazepam is available on a p.r.n. basis; not using. Consider initiating an SSRI and reconsider a psychiatry consult, but seems to be effectively treated with propranolol. * Cognitive impairment was minimal on his prior stay. He was working on higher level cognitive activities with Speech and Language Pathology. * Secondary stroke prophylaxis. Continue atorvastatin as well as blood pressure control. * Insomnia. Continue trazodone which has been effective. * History of gastroesophageal reflux disorder. Continue pantoprazole. * Possible obstructive sleep apnea with history of snoring and crowded airway on prior exam. Advise sleep study after discharge. * Risk for deep venous thrombosis. Continue enoxaparin. His mobility is improving and it is conceivable that before discharge he will no longer need DVT prophylaxis. Functional goal is for him to be able to self transfer out of wheelchair into 1st floor half bath. He will need a ramp from his garage and he will need a railing on the right side of the steps to the upstairs of his house. Discharge date set for 09/03/2017 to 09/08/2017. Plan for family conference on 08/31/2017. Home PT with a goal to be able to use the stairs and outpatient OT. FOLLOWUP: He is to follow up with his primary care provider, Dr. Gema Greene , after discharge. Consider cardiology follow up regarding right bundle branch block. 08/26/17 14:40 08/26/17 14:58 Subjective: Chief complaint: Tingling in the right leg No acute events overnight. Patient denies any new shortness of breath or chest pain, no new numbness, tingling, or weakness. He does note in the right lower limb that he has had some tingling over the past several days that he has discussed with other providers. He endorses that he feels like it is worsened a bit more painful when he has his AFO on. Discussion with the therapist reveals that there has been no concern over skin or AFO fit, does not appear to be impinging on any nerves per her report. Patient feels like sensation is recovering in that limb as well. No new weakness as noted above. is in the room, she is doing caregiver training as well. Objective: Vital Signs Temp Pulse Resp BP Pulse Ox 36.6 C 88 88 H 120/68 92 08/26/17 08:00 08/26/17 08:00 08/26/17 08:00 08/26/17 08:00 08/26/17 08:00 08/25/17 08/26/17 08/27/17 05:59 05:59 05:59 Intake Total 1104 1136 360 Balance 1104 1136 360 Physical Exam - Physical Exam General Appearance: alert, no apparent distress EENT: No scleral icterus (R), No scleral icterus (L) Respiratory: No respiratory distress, No accessory muscle use Cardiac/Chest: normal peripheral pulses, regular rate, rhythm, No edema Abdomen: non-tender, soft Skin: normal color, warm/dry, other (Good capillary refill of the right lower limb), No cyanosis Extremities: other (AFO appears to be fitting well, no apparent skin redness or breakdown. No areas of tight fitting brace over the peripheral nerves. He was also noted to have allodynia on light touch in various aspects of the foot.), No pedal edema, No swelling Neuro/Psych: alert, normal mood/affect, motor weakness ([place] on the right, additional neurological notes under extremities exam above) ICD10 Worksheet Patient Problems: Problems Problem Status Onset Arm paresthesia, right Acute HTN (hypertension) Acute Hemorrhagic cerebrovascular accident (CVA) Acute Hypertensive urgency Acute Right hemiparesis Acute Shoulder pain, right Acute
[2017-08-26] MEDS: ATORVASTATIN CALCIUM 20 MG TAB PO SCH (20:51)
[2017-08-26] MEDS: traZODone 50 MG TAB PO PRN (20:51)
[2017-08-26] MEDS: ACETAMINOPHEN 500 MG TAB PO PRN (20:51)
[2017-08-26] MEDS: FLUTICASONE NASAL 120 SPRAYS/16 GM MDI EACHNARE SCH (20:52)
[2017-08-27] MEDS: ENOXAPARIN 40 MG/0.4 ML SYR SC SCH (07:58)
[2017-08-27] MEDS: PROPRANOLOL HCL 10 MG TAB PO SCH ×3 (08:56→20:33)
[2017-08-27] MEDS: LISINOPRIL 40 MG TAB PO SCH (08:56)
[2017-08-27] MEDS: PANTOPRAZOLE SODIUM 40 MG TAB PO SCH (08:56)
--- NOTE | 2017-08-27 12:46 | SOAPPROG ---
SOAP Progress Note Assessment/Plan: Assessment: * Cerebrovascular accident 07/19/2017, left basal ganglia and thalamus, hemorrhagic. Has had improvement in FIM from 60 on 07/28/2017 to 82 as of 2016, and to 89 as of 08/24/2017. Standby assist for bed mobility and transfers. Ambulated 70 feet with a trekking pole and a right AFO with minimal to moderate assist for occasional loss of balance. Contact guard to transfer into the shower and minimal assist to transfer out; accomplish his bathing with supervision. Can dress upper body independently; for lower body requires standby assist to minimal assist especially for the AFO and hiking pants. Continue PT and OT. * Hypertension, possibly driven by a component of anxiety. Added propranolol starting at a low dose 10 mg p.o. t.i.d. starting 08/18/2017, to treat both anxiety and hypertension. Titrated to 20 mg p.o. three times daily starting . Plasma metanephrines no elevated so pheochromocytoma ruled out. * Anxiety. Lorazepam is available on a p.r.n. basis; not using. Consider initiating an SSRI and reconsider a psychiatry consult, but seems to be effectively treated with propranolol. * Cognitive impairment was minimal on his prior stay. He was working on higher level cognitive activities with Speech and Language Pathology. * Secondary stroke prophylaxis. Continue atorvastatin as well as blood pressure control. * Insomnia. Continue trazodone which has been effective. * History of gastroesophageal reflux disorder. Continue pantoprazole. * Possible obstructive sleep apnea with history of snoring and crowded airway on prior exam. Advise sleep study after discharge. * Risk for deep venous thrombosis. Continue enoxaparin. His mobility is improving and it is conceivable that before discharge he will no longer need DVT prophylaxis. Functional goal is for him to be able to self transfer out of wheelchair into 1st floor half bath. He will need a ramp from his garage and he will need a railing on the right side of the steps to the upstairs of his house. Discharge date set for 09/03/2017 to 09/08/2017. Plan for family conference on 08/31/2017. Home PT with a goal to be able to use the stairs and outpatient OT. He has a mobility limitation that significantly impairs 1 mobility related ADLs in the home. His functional mobility deficit cannot be resolved with a walker or cane. His home is adequate for accessing rooms maneuvering space and surfaces. Wheelchair will significantly improve the ability to participate in a.m. are ADLs and patient will use it regularly. He has not expressed and unwillingness to use a wheelchair and he has sufficient physical and mental abilities to safely use a wheelchair. FOLLOWUP: He is to follow up with his primary care provider, Dr. Gema Greene , after discharge. Consider cardiology follow up regarding right bundle branch block. 08/27/17 12:46 Subjective: No complaints. He had a new wheelchair and notes that the brake controls are stiffer. Objective: Vital Signs Temp Pulse Resp BP Pulse Ox 36.6 C 68 16 118/68 95 08/27/17 07:22 08/27/17 08:56 08/27/17 07:22 08/27/17 08:56 08/27/17 07:22 08/26/17 08/27/17 08/28/17 05:59 05:59 05:59 Intake Total 1136 1480 480 Balance 1136 1480 480 Physical Exam - Physical Exam General Appearance: WD/WN, alert, no apparent distress Respiratory: No respiratory distress, No accessory muscle use Skin: normal color, warm/dry Neuro/Psych: alert, normal mood/affect, oriented x 3, motor weakness (Right upper extremity) ICD10 Worksheet Patient Problems: Problems Problem Status Onset Arm paresthesia, right Acute HTN (hypertension) Acute Hemorrhagic cerebrovascular accident (CVA) Acute Hypertensive urgency Acute Right hemiparesis Acute Shoulder pain, right Acute
[2017-08-27] MEDS: ACETAMINOPHEN 500 MG TAB PO PRN (20:32)
[2017-08-27] MEDS: traZODone 50 MG TAB PO PRN (20:33)
[2017-08-27] MEDS: ATORVASTATIN CALCIUM 20 MG TAB PO SCH (20:34)
[2017-08-27] MEDS: FLUTICASONE NASAL 120 SPRAYS/16 GM MDI EACHNARE SCH (21:28)
[2017-08-28] MEDS: LISINOPRIL 40 MG TAB PO SCH (08:53)
[2017-08-28] MEDS: ENOXAPARIN 40 MG/0.4 ML SYR SC SCH (08:53)
[2017-08-28] MEDS: PROPRANOLOL HCL 10 MG TAB PO SCH ×3 (08:55→20:56)
[2017-08-28] MEDS: PANTOPRAZOLE SODIUM 40 MG TAB PO SCH (08:55)
--- NOTE | 2017-08-28 14:38 | SOAPPROG ---
SOAP Progress Note Assessment/Plan: Assessment: Cerebrovascular accident 07/19/2017, left basal ganglia and thalamus, hemorrhagic. Has had improvement in FIM from 60 on 07/28/2017 to 82 as of 2016, and to 89 as of 08/24/2017. Standby assist for bed mobility and transfers. Ambulated 70 feet with a trekking pole and a right AFO with minimal to moderate assist for occasional loss of balance. Contact guard to transfer into the shower and minimal assist to transfer out; accomplish his bathing with supervision. Can dress upper body independently; for lower body requires standby assist to minimal assist especially for the AFO and hiking pants. Continue PT and OT. * Hypertension, possibly driven by a component of anxiety. Added propranolol starting at a low dose 10 mg p.o. t.i.d. starting 08/18/2017, to treat both anxiety and hypertension. Titrated to 20 mg p.o. three times daily starting . Plasma metanephrines no elevated so pheochromocytoma ruled out. * Anxiety. Lorazepam is available on a p.r.n. basis; not using. Consider initiating an SSRI and reconsider a psychiatry consult, but seems to be effectively treated with propranolol. * Cognitive impairment was minimal on his prior stay. He was working on higher level cognitive activities with Speech and Language Pathology. * Secondary stroke prophylaxis. Continue atorvastatin as well as blood pressure control. * Insomnia. Continue trazodone which has been effective. * History of gastroesophageal reflux disorder. Continue pantoprazole. * Possible obstructive sleep apnea with history of snoring and crowded airway on prior exam. Advise sleep study after discharge. * Risk for deep venous thrombosis. Continue enoxaparin. His mobility is improving and it is conceivable that before discharge he will no longer need DVT prophylaxis. Plan: 08/28/17 14:37 Subjective: NO NEW COMPLAINTS Objective: Vital Signs Temp Pulse Resp BP Pulse Ox 36.7 C 62 16 124/64 H 92 08/28/17 08:00 08/28/17 08:55 08/28/17 08:00 08/28/17 08:55 08/28/17 08:00 08/27/17 08/28/17 08/29/17 05:59 05:59 05:59 Intake Total 1480 980 594 Balance 1480 980 594 Physical Exam - Physical Exam General Appearance: WD/WN, alert, no apparent distress Respiratory: No respiratory distress Neuro/Psych: alert, normal mood/affect, oriented x 3 ICD10 Worksheet Patient Problems: Problems Problem Status Onset Arm paresthesia, right Acute HTN (hypertension) Acute Hemorrhagic cerebrovascular accident (CVA) Acute Hypertensive urgency Acute Right hemiparesis Acute Shoulder pain, right Acute
[2017-08-28] MEDS: traZODone 50 MG TAB PO PRN (20:55)
[2017-08-28] MEDS: ACETAMINOPHEN 500 MG TAB PO PRN (20:56)
[2017-08-28] MEDS: FLUTICASONE NASAL 120 SPRAYS/16 GM MDI EACHNARE SCH (20:57)
[2017-08-28] MEDS: ATORVASTATIN CALCIUM 20 MG TAB PO SCH (20:57)
[2017-08-29] MEDS: ENOXAPARIN 40 MG/0.4 ML SYR SC SCH (08:00)
[2017-08-29] MEDS: LISINOPRIL 40 MG TAB PO SCH (08:01)
[2017-08-29] MEDS: PROPRANOLOL HCL 10 MG TAB PO SCH ×3 (08:01→20:42)
[2017-08-29] MEDS: PANTOPRAZOLE SODIUM 40 MG TAB PO SCH (08:01)
--- NOTE | 2017-08-29 12:03 | SOAPPROG ---
SOAP Progress Note Assessment/Plan: Assessment: Cerebrovascular accident 07/19/2017, left basal ganglia and thalamus, hemorrhagic. Has had improvement in FIM from 60 on 07/28/2017 to 82 as of 2016, and to 89 as of 08/24/2017. Standby assist for bed mobility and transfers. Ambulated 70 feet with a trekking pole and a right AFO with minimal to moderate assist for occasional loss of balance. Contact guard to transfer into the shower and minimal assist to transfer out; accomplish his bathing with supervision. Can dress upper body independently; for lower body requires standby assist to minimal assist especially for the AFO and hiking pants. Continue PT and OT. * Hypertension, possibly driven by a component of anxiety. Added propranolol starting at a low dose 10 mg p.o. t.i.d. starting 08/18/2017, to treat both anxiety and hypertension. Titrated to 20 mg p.o. three times daily starting . Plasma metanephrines no elevated so pheochromocytoma ruled out. * Anxiety. Lorazepam is available on a p.r.n. basis; not using. Consider initiating an SSRI and reconsider a psychiatry consult, but seems to be effectively treated with propranolol. * Cognitive impairment was minimal on his prior stay. He was working on higher level cognitive activities with Speech and Language Pathology. * Secondary stroke prophylaxis. Continue atorvastatin as well as blood pressure control. * Insomnia. Continue trazodone which has been effective. * History of gastroesophageal reflux disorder. Continue pantoprazole. * Possible obstructive sleep apnea with history of snoring and crowded airway on prior exam. Advise sleep study after discharge. * Risk for deep venous thrombosis. Continue enoxaparin. His mobility is improving and it is conceivable that before discharge he will no longer need DVT prophylaxis. Plan: 08/28/17 14:37 Subjective: No new complaints. Doing well Objective: Vital Signs Temp Pulse Resp BP Pulse Ox 36.7 C 61 17 137/87 H 92 08/29/17 07:35 08/29/17 08:01 08/29/17 07:35 08/29/17 08:01 08/29/17 07:35 08/28/17 08/29/17 08/30/17 05:59 05:59 05:59 Intake Total 980 1644 236 Balance 980 1644 236 Physical Exam - Physical Exam General Appearance: alert, no apparent distress Respiratory: No respiratory distress Neuro/Psych: alert, normal mood/affect, oriented x 3 ICD10 Worksheet Patient Problems: Problems Problem Status Onset Arm paresthesia, right Acute HTN (hypertension) Acute Hemorrhagic cerebrovascular accident (CVA) Acute Hypertensive urgency Acute Right hemiparesis Acute Shoulder pain, right Acute
[2017-08-29] MEDS: ATORVASTATIN CALCIUM 20 MG TAB PO SCH (20:42)
[2017-08-29] MEDS: FLUTICASONE NASAL 120 SPRAYS/16 GM MDI EACHNARE SCH (20:52)
[2017-08-29] MEDS: ACETAMINOPHEN 500 MG TAB PO PRN (20:55)
[2017-08-30] MEDS: PROPRANOLOL HCL 10 MG TAB PO SCH ×3 (08:14→20:41)
[2017-08-30] MEDS: LISINOPRIL 40 MG TAB PO SCH (08:14)
[2017-08-30] MEDS: PANTOPRAZOLE SODIUM 40 MG TAB PO SCH (08:14)
[2017-08-30] MEDS: ENOXAPARIN 40 MG/0.4 ML SYR SC SCH (08:15)
--- NOTE | 2017-08-30 13:26 | SOAPPROG ---
SOAP Progress Note Assessment/Plan: Assessment: * Cerebrovascular accident 07/19/2017, left basal ganglia and thalamus, hemorrhagic. * Has had improvement in FIM from 60 on 07/28/2017 to 82 as of 08/17/2017, and to 89 as of 08/24/2017. Standby assist for bed mobility and transfers. Ambulated 70 feet with a trekking pole and a right AFO with minimal to moderate assist for occasional loss of balance. Contact guard to transfer into the shower and minimal assist to transfer out; accomplish his bathing with supervision. Can dress upper body independently; for lower body requires standby assist to minimal assist especially for the AFO and hiking pants. Continue PT and OT. * Hypertension, possibly driven by a component of anxiety. * Added propranolol starting at a low dose 10 mg p.o. t.i.d. starting 08/18/2017 , to treat both anxiety and hypertension. Titrated to 20 mg p.o. three times daily starting 08/19/2017. Plasma metanephrines evaristo elevated so pheochromocytoma ruled out. * Anxiety. Lorazepam is available on a p.r.n. basis; not using. Consider initiating an SSRI and reconsider a psychiatry consult, but seems to be effectively treated with propranolol. * Cognitive impairment was minimal on his prior stay. Working on higher level cognitive activities with Speech and Language Pathology. * Secondary stroke prophylaxis. Continue atorvastatin as well as blood pressure control. * Insomnia. Continue PRN trazodone which has been effective. * History of gastroesophageal reflux disorder. Continue pantoprazole. * Possible obstructive sleep apnea with history of snoring and crowded airway on prior exam. Advise sleep study after discharge. * Risk for deep venous thrombosis. Continue enoxaparin. His mobility is improving so DVT prophylaxis will not be continued after discharge.. Functional goal is for him to be able to self transfer out of wheelchair into 1st floor half bath. He will need a ramp from his garage and he will need a railing on the right side of the steps to the upstairs of his house. Discharge date set for 09/03/2017 to 09/08/2017. Plan for family conference on 08/31/2017. Home PT with a goal to be able to use the stairs and outpatient OT. He has a mobility limitation that significantly impairs 1 mobility related ADLs in the home. His functional mobility deficit cannot be resolved with a walker or cane. His home is adequate for accessing rooms maneuvering space and surfaces. Wheelchair will significantly improve the ability to participate in a.m. are ADLs and patient will use it regularly. He has not expressed and unwillingness to use a wheelchair and he has sufficient physical and mental abilities to safely use a wheelchair. FOLLOWUP: He is to follow up with his primary care provider, Dr. Gema Greene , after discharge. Consider cardiology follow up regarding right bundle branch block. 08/30/17 13:57 Subjective: No complaints. Reports that he has walked 90 feet today with therapies. Says he is ready for a nap. Had a home visit which left him fatigued and he noted that at home he has a deep carpet and it is more difficult to move the wheelchair. Otherwise without complaints. Objective: Vital Signs Temp Pulse Resp BP Pulse Ox 36.4 C 73 16 136/80 H 95 08/30/17 08:00 08/30/17 08:14 08/30/17 08:00 08/30/17 08:14 08/30/17 08:00 08/29/17 08/30/17 08/31/17 05:59 05:59 05:59 Intake Total 1644 1426 480 Balance 1644 1426 480 Physical Exam - Physical Exam General Appearance: WD/WN, alert, no apparent distress Respiratory: No respiratory distress, No accessory muscle use Skin: normal color, warm/dry Neuro/Psych: alert, normal mood/affect, oriented x 3, motor weakness (Right upper extremity greater than right lower extremity.) ICD10 Worksheet Patient Problems: Problems Problem Status Onset Arm paresthesia, right Acute HTN (hypertension) Acute Hemorrhagic cerebrovascular accident (CVA) Acute Hypertensive urgency Acute Right hemiparesis Acute Shoulder pain, right Acute
[2017-08-30] MEDS: ACETAMINOPHEN 500 MG TAB PO PRN (20:41)
[2017-08-30] MEDS: ATORVASTATIN CALCIUM 20 MG TAB PO SCH (20:42)
[2017-08-30] MEDS: traZODone 50 MG TAB PO PRN (20:42)
[2017-08-30] MEDS: FLUTICASONE NASAL 120 SPRAYS/16 GM MDI EACHNARE SCH (20:42)
[2017-08-31] MEDS: ENOXAPARIN 40 MG/0.4 ML SYR SC SCH (08:31)
[2017-08-31] MEDS: PANTOPRAZOLE SODIUM 40 MG TAB PO SCH (08:31)
[2017-08-31] MEDS: PROPRANOLOL HCL 10 MG TAB PO SCH ×3 (08:31→20:20)
[2017-08-31] MEDS: LISINOPRIL 40 MG TAB PO SCH (08:32)
--- NOTE | 2017-08-31 14:25 | SOAPPROG ---
SOAP Progress Note Assessment/Plan: Assessment: * Cerebrovascular accident 07/19/2017, left basal ganglia and thalamus, hemorrhagic. * Has had improvement in FIM from 60 on 07/28/2017 to 82 as of 08/17/2017, to 89 as of 08/24/2017, and to 96 as of 08/31/17. Standby assist for bed mobility and transfers. Ambulated 30 feet with a trekking pole and a right AFO with contact guard to minimal assist. Increased extensor tone noted on the right leg which causes foot drag. Ascended and descended stairs with 1 person assist and hand rail. Dress his upper body independently, needs standby assistance setup for lower body. Toilet transfer and toileting with standby assist. Shower transfer requires minimal assist to contact guard assist, bathing is done with standby assist. Continue PT and OT. * Hypertension, possibly driven by a component of anxiety. * Added propranolol starting at a low dose 10 mg p.o. t.i.d. starting 08/18/2017 , to treat both anxiety and hypertension. Titrated to 20 mg p.o. three times daily starting 08/19/2017. Plasma metanephrines evaristo elevated so pheochromocytoma ruled out. * Anxiety. Lorazepam is available on a p.r.n. basis; not using. Consider initiating an SSRI and reconsider a psychiatry consult, but seems to be effectively treated with propranolol. * Increased tone in the right hand and in the right lower extremity. Will initiate baclofen starting 08/31/2017. * Likely weight gain. Dietitian notes that he is taking more calories than he needs. Will weigh patient today, 08/31/2017, and further counseling per dietitian. * Cognitive impairment was minimal on his prior stay. Working on higher level cognitive activities with Speech and Language Pathology. * Secondary stroke prophylaxis. Continue atorvastatin as well as blood pressure control. * Insomnia. Continue PRN trazodone which has been effective. * History of gastroesophageal reflux disorder. Continue pantoprazole. * Possible obstructive sleep apnea with history of snoring and crowded airway on prior exam. Advise sleep study after discharge. * Risk for deep venous thrombosis. Continue enoxaparin. His mobility is improving so DVT prophylaxis will not be continued after discharge.. Attended staffing, 15 minutes. Discussed with case management, dietitian, nursing, PT, OT, [employer]. Functional goal is for him to be able to self transfer out of wheelchair into 1st floor half bath. He will need a ramp from his garage and he will need a railing on the right side of the steps to the upstairs of his house. Discharge date set for 09/03/2017 pending construction of ramp to enter through the garage. Home PT with a goal to be able to use the stairs and outpatient OT. He has a mobility limitation that significantly impairs 1 mobility related ADLs in the home. His functional mobility deficit cannot be resolved with a walker or cane. His home is adequate for accessing rooms maneuvering space and surfaces. Wheelchair will significantly improve the ability to participate in a.m. are ADLs and patient will use it regularly. He has not expressed and unwillingness to use a wheelchair and he has sufficient physical and mental abilities to safely use a wheelchair. FOLLOWUP: He is to follow up with his primary care provider, Dr. Gema Greene , after discharge, and [place] physiatry Dr. Harris regarding functional status and tone.. Consider cardiology follow up regarding right bundle branch block. 08/31/17 14:33 Subjective: No complaints. Not in pain, no fevers or chills, no cough or dyspnea. Meeting with geriatric social work professor and making plans for going home. Objective: Vital Signs Temp Pulse Resp BP Pulse Ox 36.6 C 63 16 129/78 H 98 08/31/17 08:00 08/31/17 08:31 08/31/17 08:00 08/31/17 08:32 08/31/17 08:00 08/30/17 08/31/17 09/01/17 05:59 05:59 05:59 Intake Total 1426 1570 720 Balance 1426 1570 720 - Time Spent With Patient Time Spent With Patient: Greater than 35 minutes floor time today, including more than 50% of time in coordination of care during staffing meeting, and counseling patient and . Physical Exam - Physical Exam General Appearance: WD/WN, alert, no apparent distress Respiratory: normal breath sounds, No crackles, No rhonchi, No wheezing Cardiac/Chest: regular rate, rhythm, No edema Skin: normal color, warm/dry Neuro/Psych: alert, normal mood/affect, oriented x 3, motor weakness (RUE and RLE) ICD10 Worksheet Patient Problems: Problems Problem Status Onset Arm paresthesia, right Acute HTN (hypertension) Acute Hemorrhagic cerebrovascular accident (CVA) Acute Hypertensive urgency Acute Right hemiparesis Acute Shoulder pain, right Acute
[2017-08-31] MEDS: BACLOFEN 10 MG TAB PO SCH ×2 (16:06→20:20)
[2017-08-31] MEDS: ATORVASTATIN CALCIUM 20 MG TAB PO SCH (20:20)
[2017-08-31] MEDS: ACETAMINOPHEN 500 MG TAB PO PRN (20:20)
[2017-08-31] MEDS: traZODone 50 MG TAB PO PRN (20:20)
[2017-08-31] MEDS: FLUTICASONE NASAL 120 SPRAYS/16 GM MDI EACHNARE SCH (20:21)
[2017-09-01] MEDS: LISINOPRIL 40 MG TAB PO SCH (09:22)
[2017-09-01] MEDS: BACLOFEN 10 MG TAB PO SCH ×3 (09:22→20:33)
[2017-09-01] MEDS: PANTOPRAZOLE SODIUM 40 MG TAB PO SCH (09:22)
[2017-09-01] MEDS: PROPRANOLOL HCL 10 MG TAB PO SCH ×3 (09:22→20:32)
[2017-09-01] MEDS: ENOXAPARIN 40 MG/0.4 ML SYR SC SCH (09:22)
--- NOTE | 2017-09-01 13:17 | SOAPPROG ---
SOAP Progress Note Assessment/Plan: Assessment: * Cerebrovascular accident 07/19/2017, left basal ganglia and thalamus, hemorrhagic. * Has had improvement in FIM from 60 on 07/28/2017 to 82 as of 08/17/2017, to 89 as of 08/24/2017, and to 96 as of 08/31/17. Standby assist for bed mobility and transfers. Ambulated 30 feet with a trekking pole and a right AFO with contact guard to minimal assist. Increased extensor tone noted on the right leg which causes foot drag. Ascended and descended stairs with 1 person assist and hand rail. Dress his upper body independently, needs standby assistance setup for lower body. Toilet transfer and toileting with standby assist. Shower transfer requires minimal assist to contact guard assist, bathing is done with standby assist. Continue PT and OT. * Hypertension, possibly driven by a component of anxiety. * Added propranolol starting at a low dose 10 mg p.o. t.i.d. starting 08/18/2017 , to treat both anxiety and hypertension. Titrated to 20 mg p.o. three times daily starting 08/19/2017. Plasma metanephrines not elevated so pheochromocytoma ruled out. * Anxiety. Lorazepam is available on a p.r.n. basis; not using. Consider initiating an SSRI and reconsider a psychiatry consult, but seems to be effectively treated with propranolol. * Increased tone in the right hand and in the right lower extremity. Initiated baclofen starting 08/31/2017. * Likely weight gain. Dietitian notes that he is taking more calories than he needs. * Weight on 08/31/2017 shows weight loss, but unknown whether initial weight was calculated relative to wheelchair weight and has different wheelchair now.. * Cognitive impairment was minimal on his prior stay. Working on higher level cognitive activities with Speech and Language Pathology. * Secondary stroke prophylaxis. Continue atorvastatin as well as blood pressure control. * Insomnia. Continue PRN trazodone which has been effective. * History of gastroesophageal reflux disorder. Continue pantoprazole. * Possible obstructive sleep apnea with history of snoring and crowded airway on prior exam. Advise sleep study after discharge. * Risk for deep venous thrombosis. Continue enoxaparin. His mobility is improving so DVT prophylaxis will not be continued after discharge.. Functional goal is for him to be able to self transfer out of wheelchair into 1st floor half bath. He will need a ramp from his garage and he will need a railing on the right side of the steps to the upstairs of his house. Discharge date set for 09/03/2017 pending construction of ramp to enter through the garage. Home PT with a goal to be able to use the stairs and outpatient OT. He has a mobility limitation that significantly impairs 1 mobility related ADLs in the home. His functional mobility deficit cannot be resolved with a walker or cane. His home is adequate for accessing rooms maneuvering space and surfaces. Wheelchair will significantly improve the ability to participate in a.m. are ADLs and patient will use it regularly. He has not expressed and unwillingness to use a wheelchair and he has sufficient physical and mental abilities to safely use a wheelchair. FOLLOWUP: He is to follow up with his primary care provider, Dr. Gema Greene , after discharge, and [employer] [facility] [employer] physiatry Dr. Harris regarding functional status and tone.. Consider cardiology follow up regarding right bundle branch block. 09/01/17 13:13 Subjective: No complaints. Sleeping well. Not in pain, no fevers or chills, no cough or dyspnea. Has not noted any change in tone with initiation of baclofen. Objective: Vital Signs Temp Pulse Resp BP Pulse Ox 36.5 C 65 15 139/98 H 92 09/01/17 07:10 09/01/17 09:22 09/01/17 07:10 09/01/17 09:22 09/01/17 07:10 08/31/17 09/01/17 09/02/17 05:59 05:59 05:59 Intake Total 1570 1220 236 Balance 1570 1220 236 Physical Exam - Physical Exam General Appearance: WD/WN, alert, no apparent distress, obese Respiratory: No respiratory distress, No accessory muscle use Skin: normal color, warm/dry Neuro/Psych: alert, normal mood/affect, oriented x 3, motor weakness (Has begun to have some movement of the right thumb with extension and flexion. Otherwise no movement of right hand or wrist. Able to flex and extend right leg at hip and knee.), sensory deficit (Reduced sensation right upper and lower extremities and minimal sensation distal right hand.) ICD10 Worksheet Patient Problems: Problems Problem Status Onset Arm paresthesia, right Acute HTN (hypertension) Acute Hemorrhagic cerebrovascular accident (CVA) Acute Hypertensive urgency Acute Right hemiparesis Acute Shoulder pain, right Acute
[2017-09-01] MEDS: FLUTICASONE NASAL 120 SPRAYS/16 GM MDI EACHNARE SCH (20:28)
[2017-09-01] MEDS: ACETAMINOPHEN 500 MG TAB PO PRN (20:32)
[2017-09-01] MEDS: ATORVASTATIN CALCIUM 20 MG TAB PO SCH (20:32)
[2017-09-01] MEDS: traZODone 50 MG TAB PO PRN (20:32)
--- NOTE | 2017-09-02 08:40 | SOAPPROG ---
JEYSON Progress Note Assessment/Plan: 61-year-old male with hemorrhagic stroke on 07/26/2017 of the left thalamus and basal ganglia with right hemiparesis, stroke occurred on 07/19/2017. Today's update: Patient is doing well in therapies, ramp was not completed at home therefore delaying discharge until early next week. He expresses some frustration but otherwise doing well. Continue plan below * Cerebrovascular accident 07/19/2017, left basal ganglia and thalamus, hemorrhagic. * Has had improvement in FIM from 60 on 07/28/2017 to 82 as of 08/17/2017, to 89 as of 08/24/2017, and to 96 as of 08/31/17. Standby assist for bed mobility and transfers. Ambulated 30 feet with a trekking pole and a right AFO with contact guard to minimal assist. Increased extensor tone noted on the right leg which causes foot drag. Ascended and descended stairs with 1 person assist and hand rail. Dress his upper body independently, needs standby assistance setup for lower body. Toilet transfer and toileting with standby assist. Shower transfer requires minimal assist to contact guard assist, bathing is done with standby assist. Continue PT and OT. * Hypertension, possibly driven by a component of anxiety. * Added propranolol starting at a low dose 10 mg p.o. t.i.d. starting 08/18/2017 , to treat both anxiety and hypertension. Titrated to 20 mg p.o. three times daily starting 08/19/2017. Plasma metanephrines not elevated so pheochromocytoma ruled out. * Anxiety. Lorazepam is available on a p.r.n. basis; not using. Consider initiating an SSRI and reconsider a psychiatry consult, but seems to be effectively treated with propranolol. * Increased tone in the right hand and in the right lower extremity. Initiated baclofen starting 08/31/2017. * Likely weight gain. Dietitian notes that he is taking more calories than he needs. * Weight on 08/31/2017 shows weight loss, but unknown whether initial weight was calculated relative to wheelchair weight and has different wheelchair now.. * Cognitive impairment was minimal on his prior stay. Working on higher level cognitive activities with Speech and Language Pathology. * Secondary stroke prophylaxis. Continue atorvastatin as well as blood pressure control. * Insomnia. Continue PRN trazodone which has been effective. * History of gastroesophageal reflux disorder. Continue pantoprazole. * Possible obstructive sleep apnea with history of snoring and crowded airway on prior exam. Advise sleep study after discharge. * Risk for deep venous thrombosis. Continue enoxaparin. His mobility is improving so DVT prophylaxis will not be continued after discharge.. Functional goal is for him to be able to self transfer out of wheelchair into 1st floor half bath. He will need a ramp from his garage and he will need a railing on the right side of the steps to the upstairs of his house. Discharge date set for early next week pending construction of ramp to enter through the garage. Home PT with a goal to be able to use the stairs and outpatient OT. He has a mobility limitation that significantly impairs 1 mobility related ADLs in the home. His functional mobility deficit cannot be resolved with a walker or cane. His home is adequate for accessing rooms maneuvering space and surfaces. Wheelchair will significantly improve the ability to participate in a.m. are ADLs and patient will use it regularly. He has not expressed and unwillingness to use a wheelchair and he has sufficient physical and mental abilities to safely use a wheelchair. FOLLOWUP: He is to follow up with his primary care provider, Dr. Gema Greene , after discharge, and [place] [facility] Dr. Harris regarding functional status and tone.. Consider cardiology follow up regarding right bundle branch block. 08/26/17 14:40 08/26/17 14:58 09/02/17 08:38 Subjective: Chief complaint: Mobility and accessibility of home No acute events overnight. Patient denies any shortness of breath or chest pain , no new numbness, tingling, or weakness. He is a bit frustrated that a ramp was not completed for his discharge home slated for later this week. This will push up the discharge day until early next week, pending completion on Wednesday. Otherwise he states that he is in good spirits making progress and looking forward to going home. Objective: Vital Signs Temp Pulse Resp BP Pulse Ox 36.8 C 73 16 132/76 H 92 09/01/17 19:34 09/01/17 19:34 09/01/17 19:34 09/01/17 19:34 09/01/17 19:34 09/01/17 09/02/17 09/03/17 05:59 05:59 05:59 Intake Total 1220 966 Balance 1220 966 Physical Exam - Physical Exam General Appearance: alert, no apparent distress Respiratory: No respiratory distress, No accessory muscle use Cardiac/Chest: normal peripheral pulses, regular rate, rhythm, No edema Skin: normal color, warm/dry, No cyanosis Extremities: No pedal edema, No swelling Neuro/Psych: alert, normal mood/affect ICD10 Worksheet Patient Problems: Problems Problem Status Onset Arm paresthesia, right Acute HTN (hypertension) Acute Hemorrhagic cerebrovascular accident (CVA) Acute Hypertensive urgency Acute Right hemiparesis Acute Shoulder pain, right Acute
[2017-09-02] MEDS: LISINOPRIL 40 MG TAB PO SCH (09:22)
[2017-09-02] MEDS: PROPRANOLOL HCL 10 MG TAB PO SCH ×3 (09:22→20:37)
[2017-09-02] MEDS: PANTOPRAZOLE SODIUM 40 MG TAB PO SCH (09:23)
[2017-09-02] MEDS: ENOXAPARIN 40 MG/0.4 ML SYR SC SCH (09:23)
[2017-09-02] MEDS: BACLOFEN 10 MG TAB PO SCH ×3 (09:24→20:37)
[2017-09-02] MEDS: ATORVASTATIN CALCIUM 20 MG TAB PO SCH (20:37)
[2017-09-02] MEDS: FLUTICASONE NASAL 120 SPRAYS/16 GM MDI EACHNARE SCH (20:38)
[2017-09-03] MEDS: PANTOPRAZOLE SODIUM 40 MG TAB PO SCH (09:06)
[2017-09-03] MEDS: BACLOFEN 10 MG TAB PO SCH ×3 (09:06→21:00)
[2017-09-03] MEDS: ENOXAPARIN 40 MG/0.4 ML SYR SC SCH (09:06)
[2017-09-03] MEDS: LISINOPRIL 40 MG TAB PO SCH (09:08)
[2017-09-03] MEDS: PROPRANOLOL HCL 10 MG TAB PO SCH (09:08)
--- NOTE | 2017-09-03 11:20 | SOAPPROG ---
SOAP Progress Note Assessment/Plan: Assessment: * Cerebrovascular accident 07/19/2017, left basal ganglia and thalamus, hemorrhagic. * Has had improvement in FIM from 60 on 07/28/2017 to 82 as of 08/17/2017, to 89 as of 08/24/2017, and to 96 as of 08/31/17. Standby assist for bed mobility and transfers. Ambulated 30 feet with a trekking pole and a right AFO with contact guard to minimal assist. Increased extensor tone noted on the right leg which causes foot drag. Ascended and descended stairs with 1 person assist and hand rail. Dress his upper body independently, needs standby assistance setup for lower body. Toilet transfer and toileting with standby assist. Shower transfer requires minimal assist to contact guard assist, bathing is done with standby assist. Continue PT and OT. * Hypertension, possibly driven by a component of anxiety. * Added propranolol starting at a low dose 10 mg p.o. t.i.d. starting 08/18/2017 , to treat both anxiety and hypertension. Titrated to 20 mg p.o. three times daily starting 08/19/2017. Plasma metanephrines not elevated so pheochromocytoma ruled out. * Anxiety. Lorazepam is available on a p.r.n. basis; not using. Consider initiating an SSRI and reconsider a psychiatry consult, but seems to be effectively treated with propranolol. * Increased tone in the right hand and in the right lower extremity. Initiated baclofen starting 08/31/2017. * Likely weight gain. Dietitian notes that he is taking more calories than he needs. * Weight on 08/31/2017 shows weight loss, but unknown whether initial weight was calculated relative to wheelchair weight and has different wheelchair now.. * Cognitive impairment was minimal on his prior stay. Working on higher level cognitive activities with Speech and Language Pathology. * Secondary stroke prophylaxis. Continue atorvastatin as well as blood pressure control. * Insomnia. Continue PRN trazodone which has been effective. * History of gastroesophageal reflux disorder. Continue pantoprazole. * Possible obstructive sleep apnea with history of snoring and crowded airway on prior exam. Advise sleep study after discharge. * Risk for deep venous thrombosis. Continue enoxaparin. His mobility is improving so DVT prophylaxis will not be continued after discharge.. Functional goal is for him to be able to self transfer out of wheelchair into 1st floor half bath. He will need a ramp from his garage and he will need a railing on the right side of the steps to the upstairs of his house. Discharge date set for 09/03/2017 pending construction of ramp to enter through the garage. Home PT with a goal to be able to use the stairs and outpatient OT. He has a mobility limitation that significantly impairs 1 mobility related ADLs in the home. His functional mobility deficit cannot be resolved with a walker or cane. His home is adequate for accessing rooms maneuvering space and surfaces. Wheelchair will significantly improve the ability to participate in a.m. are ADLs and patient will use it regularly. He has not expressed and unwillingness to use a wheelchair and he has sufficient physical and mental abilities to safely use a wheelchair. FOLLOWUP: He is to follow up with his primary care provider, Dr. Gema Greene , after discharge, and [facility] Dr. Harris regarding functional status and tone.. Consider cardiology follow up regarding right bundle branch block. 09/01/17 13:13 Subjective: No complaints. Feels he will be ready to go home on Wednesday. Continues to note increased tone in the right hand. Objective: Vital Signs Temp Pulse Resp BP Pulse Ox 37.0 C 72 16 135/88 H 94 09/03/17 05:51 09/03/17 09:08 09/03/17 05:51 09/03/17 09:08 09/03/17 05:51 09/02/17 09/03/17 09/04/17 05:59 05:59 05:59 Intake Total 966 1050 360 Balance 966 1050 360 Physical Exam - Physical Exam General Appearance: WD/WN, alert, no apparent distress, obese Respiratory: No respiratory distress, No accessory muscle use Skin: normal color, warm/dry Neuro/Psych: alert, normal mood/affect, oriented x 3, motor weakness (RUE & RLE) , other (Increased tone in the right fingers and wrist.) ICD10 Worksheet Patient Problems: Problems Problem Status Onset Arm paresthesia, right Acute HTN (hypertension) Acute Hemorrhagic cerebrovascular accident (CVA) Acute Hypertensive urgency Acute Right hemiparesis Acute Shoulder pain, right Acute
[2017-09-03] MEDS: ACETAMINOPHEN 500 MG TAB PO PRN ×2 (13:32→20:03)
[2017-09-03] MEDS: PROPRANOLOL HCL 20 MG TAB PO SCH ×2 (17:25→20:03)
[2017-09-03] MEDS: traZODone 50 MG TAB PO PRN (20:03)
[2017-09-03] MEDS: ATORVASTATIN CALCIUM 20 MG TAB PO SCH (20:04)
[2017-09-03] MEDS: FLUTICASONE NASAL 120 SPRAYS/16 GM MDI EACHNARE SCH (20:05)
[2017-09-03] MEDS ORDERED: PROPRANOLOL HCL 20 MG TAB PO SCH (21:00)
[2017-09-04] MEDS: BACLOFEN 10 MG TAB PO SCH ×3 (09:16→21:04)
[2017-09-04] MEDS: LISINOPRIL 40 MG TAB PO SCH (09:16)
[2017-09-04] MEDS: PANTOPRAZOLE SODIUM 40 MG TAB PO SCH (09:16)
[2017-09-04] MEDS: PROPRANOLOL SR 80 MG CAP PO SCH (09:16)
[2017-09-04] MEDS: ENOXAPARIN 40 MG/0.4 ML SYR SC SCH (09:17)
--- NOTE | 2017-09-04 10:11 | SOAPPROG ---
SOAP Progress Note Assessment/Plan: Assessment: Cerebrovascular accident 07/19/2017, left basal ganglia and thalamus, hemorrhagic. * Has had improvement in FIM from 60 on 07/28/2017 to 82 as of 08/17/2017, to 89 as of 08/24/2017, and to 96 as of 08/31/17. Standby assist for bed mobility and transfers. Ambulated 30 feet with a trekking pole and a right AFO with contact guard to minimal assist. Increased extensor tone noted on the right leg which causes foot drag. Ascended and descended stairs with 1 person assist and hand rail. Dress his upper body independently, needs standby assistance setup for lower body. Toilet transfer and toileting with standby assist. Shower transfer requires minimal assist to contact guard assist, bathing is done with standby assist. Continue PT and OT. * Hypertension, possibly driven by a component of anxiety. * Added propranolol starting at a low dose 10 mg p.o. t.i.d. starting 08/18/2017 , to treat both anxiety and hypertension. Titrated to 20 mg p.o. three times daily starting 08/19/2017. PROPRANOL 80 XL QAM STARTED YESTERDAY. WILL D/C PROPRANOL 20 QID. BP THIS AM 147/82 * Anxiety. Lorazepam is available on a p.r.n. basis; not using. Consider initiating an SSRI and reconsider a psychiatry consult, but seems to be effectively treated with propranolol. * Increased tone in the right hand and in the right lower extremity. Initiated baclofen starting 08/31/2017. * Likely weight gain. Dietitian notes that he is taking more calories than he needs. * Weight on 08/31/2017 shows weight loss, but unknown whether initial weight was calculated relative to wheelchair weight and has different wheelchair now.. * Cognitive impairment was minimal on his prior stay. Working on higher level cognitive activities with Speech and Language Pathology. * Secondary stroke prophylaxis. Continue atorvastatin as well as blood pressure control. * Insomnia. Continue PRN trazodone which has been effective. * History of gastroesophageal reflux disorder. Continue pantoprazole. * Possible obstructive sleep apnea with history of snoring and crowded airway on prior exam. Advise sleep study after discharge. * Risk for deep venous thrombosis. Continue enoxaparin. His mobility is improving so DVT prophylaxis will not be continued after discharge.. Functional goal is for him to be able to self transfer out of wheelchair into 1st floor half bath. He will need a ramp from his garage and he will need a railing on the right side of the steps to the upstairs of his house. Discharge date set for 09/03/2017 pending construction of ramp to enter through the garage. Home PT with a goal to be able to use the stairs and outpatient OT. He has a mobility limitation that significantly impairs 1 mobility related ADLs in the home. His functional mobility deficit cannot be resolved with a walker or cane. His home is adequate for accessing rooms maneuvering space and surfaces. Wheelchair will significantly improve the ability to participate in a.m. are ADLs and patient will use it regularly. He has not expressed and unwillingness to use a wheelchair and he has sufficient physical and mental abilities to safely use a wheelchair. Plan: 09/04/17 10:05 Subjective: No new c/o Objective: Vital Signs Temp Pulse Resp BP Pulse Ox 36.8 C 72 18 147/80 H 96 09/04/17 08:00 09/04/17 08:00 09/04/17 08:00 09/04/17 09:16 09/04/17 08:00 09/03/17 09/04/17 09/05/17 05:59 05:59 04:59 Intake Total 1050 1360 280 Balance 1050 1360 280 Physical Exam - Physical Exam General Appearance: WD/WN, alert, no apparent distress Respiratory: lungs clear Abdomen: non-tender, soft Extremities: other (no tightness of right hand intrinsics), No swelling, No Satinder's sign Neuro/Psych: motor weakness, No speech abnormalities (dense right hemiplegia) ICD10 Worksheet Patient Problems: Problems Problem Status Onset Arm paresthesia, right Acute HTN (hypertension) Acute Hemorrhagic cerebrovascular accident (CVA) Acute Hypertensive urgency Acute Right hemiparesis Acute Shoulder pain, right Acute
[2017-09-04] MEDS: FLUTICASONE NASAL 120 SPRAYS/16 GM MDI EACHNARE SCH (21:04)
[2017-09-04] MEDS: ATORVASTATIN CALCIUM 20 MG TAB PO SCH (21:04)
[2017-09-05] MEDS: PANTOPRAZOLE SODIUM 40 MG TAB PO SCH (09:02)
[2017-09-05] MEDS: LISINOPRIL 40 MG TAB PO SCH (09:02)
[2017-09-05] MEDS: ENOXAPARIN 40 MG/0.4 ML SYR SC SCH (09:02)
[2017-09-05] MEDS: BACLOFEN 10 MG TAB PO SCH ×3 (09:02→20:52)
[2017-09-05] MEDS: PROPRANOLOL SR 80 MG CAP PO SCH (09:03)
--- NOTE | 2017-09-05 09:46 | SOAPPROG ---
SOAP Progress Note Assessment/Plan: Assessment: Cerebrovascular accident 07/19/2017, left basal ganglia and thalamus, hemorrhagic. * Has had improvement in FIM from 60 on 07/28/2017 to 82 as of 08/17/2017, to 89 as of 08/24/2017, and to 96 as of 08/31/17. Standby assist for bed mobility and transfers. Ambulated 30 feet with a trekking pole and a right AFO with contact guard to minimal assist. Increased extensor tone noted on the right leg which causes foot drag. Ascended and descended stairs with 1 person assist and hand rail. Dress his upper body independently, needs standby assistance setup for lower body. Toilet transfer and toileting with standby assist. Shower transfer requires minimal assist to contact guard assist, bathing is done with standby assist. Continue PT and OT. * Hypertension, possibly driven by a component of anxiety. * Added propranolol starting at a low dose 10 mg p.o. t.i.d. starting 08/18/2017 , to treat both anxiety and hypertension. Titrated to 20 mg p.o. three times daily starting 08/19/2017. NOW ON PROPRANOL 80 XL QAM *RIGHT HAND EDEMA- PATIENT INSTRUCTED TO ELEVATE RIGHT HAND ABOVE HEART FOR 30 MINS SEVERAL TIMES PER DAY TO REDUCE EDEMA. WILL ASK OT IF HE WOULD BENEFIT FROM A COMPRESSION GLOVE * Anxiety. Lorazepam is available on a p.r.n. basis; not using. Consider initiating an SSRI and reconsider a psychiatry consult, but seems to be effectively treated with propranolol. * Increased tone in the right hand and in the right lower extremity. Initiated baclofen starting 08/31/2017. * Likely weight gain. Dietitian notes that he is taking more calories than he needs. * Weight on 08/31/2017 shows weight loss, but unknown whether initial weight was calculated relative to wheelchair weight and has different wheelchair now.. * Cognitive impairment was minimal on his prior stay. Working on higher level cognitive activities with Speech and Language Pathology. * Secondary stroke prophylaxis. Continue atorvastatin as well as blood pressure control. * Insomnia. Continue PRN trazodone which has been effective. * History of gastroesophageal reflux disorder. Continue pantoprazole. * Possible obstructive sleep apnea with history of snoring and crowded airway on prior exam. Advise sleep study after discharge. * Risk for deep venous thrombosis. Continue enoxaparin. His mobility is improving so DVT prophylaxis will not be continued after discharge.. Functional goal is for him to be able to self transfer out of wheelchair into 1st floor half bath. He will need a ramp from his garage and he will need a railing on the right side of the steps to the upstairs of his house. Discharge date set for 09/03/2017 pending construction of ramp to enter through the garage. Home PT with a goal to be able to use the stairs and outpatient OT. He has a mobility limitation that significantly impairs 1 mobility related ADLs in the home. His functional mobility deficit cannot be resolved with a walker or cane. His home is adequate for accessing rooms maneuvering space and surfaces. Wheelchair will significantly improve the ability to participate in a.m. are ADLs and patient will use it regularly. He has not expressed and unwillingness to use a wheelchair and he has sufficient physical and mental abilities to safely use a wheelchair. Plan: 09/04/17 10:05 09/05/17 09:42 Subjective: SOME SWELLING RUE. NO OTHER C/O Objective: Vital Signs Temp Pulse Resp BP Pulse Ox 36.5 C 70 18 138/70 H 92 09/05/17 06:28 09/05/17 09:03 09/05/17 06:28 09/05/17 09:03 09/05/17 06:28 09/04/17 09/05/17 09/06/17 06:59 05:59 05:59 Intake Total 720 Balance 720 Physical Exam - Physical Exam General Appearance: WD/WN, alert, no apparent distress Respiratory: lungs clear Cardiac/Chest: edema, other (RIGHT HAND EDEMA) Abdomen: non-tender, soft Skin: normal color (NO VASOMOTOR CHANGES RUE), warm/dry Neuro/Psych: motor weakness (RIGHT HEMIPLEGIA WITH GREATER MOTOR RETURN RLE THAN RUE. 3/5 RIGHT HIP FLEXORS, QUADS, TA) ICD10 Worksheet Patient Problems: Problems Problem Status Onset Arm paresthesia, right Acute HTN (hypertension) Acute Hemorrhagic cerebrovascular accident (CVA) Acute Hypertensive urgency Acute Right hemiparesis Acute Shoulder pain, right Acute
[2017-09-05] MEDS: traZODone 50 MG TAB PO PRN (20:25)
[2017-09-05] MEDS: FLUTICASONE NASAL 120 SPRAYS/16 GM MDI EACHNARE SCH (20:25)
[2017-09-05] MEDS: ATORVASTATIN CALCIUM 20 MG TAB PO SCH (20:25)
[2017-09-05] MEDS: ACETAMINOPHEN 500 MG TAB PO PRN (20:25)
[2017-09-06 06:38] VITALS: RESP 16; TEMP 98.6; O2SAT 93
[2017-09-06] MEDS: BACLOFEN 10 MG TAB PO SCH (08:39)
[2017-09-06] MEDS: LISINOPRIL 40 MG TAB PO SCH (08:39)
[2017-09-06] MEDS: PANTOPRAZOLE SODIUM 40 MG TAB PO SCH (08:40)
[2017-09-06] MEDS: PROPRANOLOL SR 80 MG CAP PO SCH (08:40)
[2017-09-06 08:42] VITALS: BP 140/93; PULSE 63
[2017-09-06] MEDS: ENOXAPARIN 40 MG/0.4 ML SYR SC SCH (11:27)
--- NOTE | 2017-09-06 13:09 | PDOREHIP ---
Admission [facility] - Admission - 3 Day Assessment Period Admission Date/Day 1: 08/18/17 Day 2: 08/19/17 Day 3: 08/20/17 Discharge [facility] - Discharge - 3 Day Assessment Period 2 Days Prior to Anticipated Discharge Date: 09/04/17 1 Day Prior to Anticipated Discharge Date: 09/05/17 Anticipated Discharge Date: 09/06/17 - Discharge Skin Conditions Unhealed Pressure Ulcer (1 or more/Stage 1 or >)-Discharge: 0. No
--- NOTE | 2017-09-06 14:05 | GDS ---
[f rep st] DISCHARGE SUMMARY ADMISSION DIAGNOSIS: Left thalamus and basal ganglia hemorrhagic infarction with right upper and lower extremity weakness. DISCHARGE DIAGNOSES: 1. Left thalamus and basal ganglia hemorrhagic infarction with right upper and lower extremity weakness. 2. Hypertension. 3. Anxiety. 4. Insomnia. 5. Possible obstructive sleep apnea. CONSULTATIONS: None. PROCEDURES: None. COMPLICATIONS: None. HISTORY AND HOSPITAL COURSE: This patient was originally admitted on 2016 after a hemorrhagic stroke. He initially presented to [facility]. The stroke was on 07/19/2017. He had a very high blood pressure with a systolic over 200 at the time and he initially required IV nicardipine and esmolol to control his blood pressure. There were no other etiologies of the stroke determined during his hospital stay. He initially was quite debilitated. His functional independence measure on was 60, which is consistent with retirement level of care. He was requiring moderate to maximal assistance for bed mobility and moderate assistance for transfers. He had been able to ambulate about 5 feet. He required maximal assistance for shower transfer and moderate assistance for bathing. His stay was interrupted by hypertensive urgency for which he needed hospitalization on 08/17/2017 to . He was again treated with IV nicardipine and blood pressure rapidly dropped to 130 systolic, so it was discontinued. Anxiety was significant in the etiology of the hypertensive urgency. Lisinopril was increased while he was in the hospital. After he returned to the rehabilitation unit, he was begun on propranolol to treat anxiety and subsequently he had much better blood pressure control. He subsequently made excellent progress in rehabilitation. As of 08/31/2017, his functional independence measure had improved to 96, which is consistent with assisted living facility level of care. He required standby assist for bed mobility and transfers. He ambulated 30 feet with a trekking pole and a right ankle-foot orthosis with contact guard to minimal assist. He had ascended and descended stairs with 1 person assist and a hand rail. He was independent with upper body dressing and needed standby assist and setup for lower body. He was able to do toilet transfer and toilet aftercare with standby assist. Shower transfer required minimal assist to contact guard assist and bathing was done with standby assist. Propranolol appears to be adequate to treat his anxiety. There was p.r.n. lorazepam available, but he never used it. He developed an increased tone in the right hand and on the right lower extremity. Baclofen was begun on 08/31/2017. He had had insomnia early in his stay. This was effectively treated with p.r.n. trazodone. On his initial history and physical, he was noted to have a crowded airway and reported history of snoring and he was advised to get a sleep study after discharge to rule out obstructive sleep apnea. LABORATORIES AND STUDIES: CBC showed mild anemia on 08/18/2017 with a hemoglobin of 12.9 and hematocrit of 37.5. Most recent serum chemistries showed normal renal function and electrolytes on 08/18/2017. Troponin-I was negative for myocardial ischemia at 0.016. TSH was normal at 1.23. Given his hypertensive urgency, a pheochromocytoma was ruled out with normal plasma free and total normetanephrine and metanephrines. Urinalysis on 08/18/2017 was normal. There was hyponatremia during his stay, it was consistent with SIADH that resolved with fluid restriction and subsequently fluid intake was liberalized without recurrent hyponatremia. CONDITION ON DISCHARGE: Good. ACTIVITY: Ad bri but he needs supervision or standby assist for mobility related tasks. DIET: Regular with a regular texture and thin liquids. FOLLOWUP: He is to follow up with his primary care provider, Dr. Gema Greene , on 09/08/2017 and he will follow up with [facility], Dr. Chaim Harris, regarding tone and baclofen. MEDICATIONS AT DISCHARGE: 1. Acetaminophen 500 mg p.o. q.h.s. p.r.n. 2. Melatonin 3 mg p.o. q.h.s. p.r.n. 3. Trazodone 50 mg p.o. q.h.s. p.r.n. 4. Amlodipine 2.5 mg p.o. daily. 5. Propranolol SR 80 mg p.o. daily. 6. Omeprazole 20 mg p.o. daily. 7. Lisinopril 40 mg p.o. daily. 8. Fluticasone 1 spray each nare at h.s. 9. Baclofen 10 mg p.o. t.i.d. 10. Atorvastatin 20 mg p.o. q.h.s. ISSUES TO BE ADDRESSED AT FOLLOWUP: 1. Functional status: He will have home physical therapy with the goal of stair climbing in the home and he will have outpatient occupational therapy. 2. Hypertension. He can follow up with his primary care provider. 3. Increased tone in his right upper and lower extremities. He will follow up with Dr. Harris to optimize his baclofen prescription or consider any other options. Copy requested to: Tadeo Walsh /[id number]
== END 2017-09-06 11:38 | disposition home health service (06) | DRG 57 ==
LOC: BREH 18:19
PROVIDERS: ADMIT Internal Medicine; ATTEND Internal Medicine
PROC: F0636ZZ Communicative/Cognitive Integration Skills Treatment of Neurological System - Whole Body (ICD-10-PCS; principal; 2017-08-18)
PROC: F07M3ZZ Motor Function Treatment of Musculoskeletal System - Whole Body (ICD-10-PCS; principal; 2017-08-18)
PROC: F08Z7ZZ Vocational Activities and Functional Community or Work Reintegration Skills Treatment (ICD-10-PCS; principal; 2017-08-18)
DX: I69.11 Cognitive deficits following nontraumatic intracerebral hemorrhage (principal); I69.191 Dysphagia following nontraumatic intracerebral hemorrhage; R60.0 Localized edema; K21.9 Gastro-esophageal reflux disease without esophagitis; E78.5 Hyperlipidemia, unspecified; E66.09 Other obesity due to excess calories; Z68.33 Body mass index [BMI] 33.0-33.9, adult; Z86.73 Personal history of transient ischemic attack (TIA), and cerebral infarction without residual deficits; Z87.891 Personal history of nicotine dependence; I10 Essential (primary) hypertension; F41.9 Anxiety disorder, unspecified; G47.33 Obstructive sleep apnea (adult) (pediatric); G47.01 Insomnia due to medical condition
CPT/HCPCS: 92522-GN; 97110-GO; 97110-GP; 97112-GO; 97112-GP; 97116-GP; 97140-GO; 97164-GP; 97168-GO; 97530-GO; 97530-GP; 97535-GO; 97542-GP; G0008; J1650